=== PATIENT | male | born 1965 | race Caucasian/White ===

== ENCOUNTER 2020-09-06 14:31 | Emergency (ER) | payer BC, SELFPAY ==
[2020-09-06] VITALS (24 sets, daily range): BP systolic 101–142; BP diastolic 71–95; PULSE 60–97; RESP 13–31; TEMP 36.3; O2SAT 96–100
--- NOTE | ~2020-09-06 | XR_ITS ---
XR chest 2V DATE: 09/06/2020 17:30 INDICATION: Shortness of breath when walking. History of emphysema, asthma, bronchitis TECHNIQUE: PA and lateral views COMPARISON: 04/22/2014 2 view chest FINDINGS: The lungs are hyperinflated prominently, with flattening of the diaphragm, increased retros ternal airspace, consistent with COPD. No pulmonary infiltrate or consolidation, pleural effusion or pulmonary vascular congestion or pneumo thorax. Normal heart size. The central pulmonary arteries are relatively prominent and taper fairly rapidly, suggesting pulmonary hypertension. No hilar or mediastinal mass lesion or lymphadenopathy is detected. IMPRESSION: COPD, probable pulmonary hypertension Reviewed, dictated and finalized at location A. TANK CAR UNLOADER
--- NOTE | 2020-09-06 15:07 | ECG_ITS ---
Measurements Intervals [place] Rate: 71 P: 82 MO: 115 QRS: 88 QRSD: 91 T: 68 QT: 356 QTc: 387 Interpretive Statements SINUS RHYTHM WITH SINUS ARRHYTHMIA WITH SHORT MO INTERVAL POSSIBLE LEFT ATRIAL ENLARGEMENT BASELINE ARTIFACT- I, II, AVR, AVL, AVF, V1-V4 BORDERLINE ECG Electronically Signed On 09-06-2020 16:20:21 DATABASE MANAGEMENT SPECIALIST by Nicko Queen D.O.
[2020-09-06 15:37] LABS: Basophils Percent Auto 0.5 % (0.2-1.2); Eosinophils Absolute Auto 0.2 K/mm3 (0-0.3); Eosinophils Percent Auto 2.2 % (0-4.4); Hematocrit 44.8 % (42.0-52.0); Hemoglobin 15.2 g/dL (14.0-18.0); Immature Granulocyte Absolute 0.02 K/mm3 (0.00-0.031); Immature Granulocyte Percent A 0.3 % (0-0.5); Lymphocytes Absolute Auto 1.31 K/mm3 (0.9-3.2); Lymphocytes Percent Auto 16.8 % (18.3-44.2); Mean Corpuscular HGB Conc 33.9 g/dl (32-36); Mean Corpuscular Hemoglobin 32.6 pg (26-34); Mean Corpuscular Volume 96.1 fl (80-100); Mean Platelet Volume 9.4 fl (7.4-10.4); Monocytes Absolute Auto 0.7 K/mm3 (0.1-0.6); Monocytes Percent Auto 8.5 % (2.6-8.5); Neutrophils Absolute Auto 5.6 K/mm3 (1.3-6.7); Neutrophils Percent Auto 71.7 % (45.5-73.1); Platelet Count Result 210 k/mm3 (150-375); Red Blood Count 4.66 M/mm3 (4.6-6.20); Red Cell Distribution Width 12.2 % (11.5-14.5); White Blood Count 7.8 K/mm3 (4.5-10.0)
[2020-09-06 15:51] LABS: Anion Gap 5 mmol/L (8-16); Blood Urea Nitrogen 15 mg/dL (9-20); Calcium 9.3 mg/dL (8.4-10.2); Carbon Dioxide 30 mmol/L (22-30); Chloride 104 mmol/L (98-107); Estimated CRCL calculation 79 ml/min; Estimated Glomerular Filt Rate > 60; Glucose 92 mg/dL (75-110); Potassium 4.2 mmol/L (3.4-5.0); Sodium 139 mmol/L (137-145)
[2020-09-06 17:19] LABS: Alveolar/Arterial O2 Gradient 27.9 mmHg; Base Excess ABG -0.6 mEq/l (+/-2.0); Carboxyhemoglobin 4.2 % THb (0-2.0); Fractional Inspired Oxygen 21 %; HCO3 ABG 24.1 mEq/l (22.0-26.0); Methemoglobin ABG 0.3 %THb (0-1.5); Oxygen Saturation ABG 94.8 % (95.0-100.0); Oxyhemoglobin 90.6 % THb (90.0-100.0); PCO2 ABG 40.1 mmHg (35.0-45.0); PO2 ABG 73.8 mmHg (80.0-100.0); PO2 FiO2 Ratio Arterial Blood 3.51 %; Reduced Hemoglobin 4.9 %THb (0-5.0); Total Hemoglobin 15.7 g/dL (12.0-18.0); pH ABG 7.397 (7.350-7.450)
[2020-09-06 17:20] LABS: Device ROOM AIR; Modified Allen's Test Pass; Site Drawn RIGHT RADIAL
--- NOTE | 2020-09-06 17:23 | ED.SOB ---
HPI - SOB/Dyspnea General Chief Complaint: Shortness of Breath/Dyspnea Stated Complaint: low spo2 per MD, sob, pt has emphysema Time Seen by Provider: 09/06/20 16:52 Source: patient Mode of arrival: ambulatory Limitations: no limitations History of Present Illness HPI Narrative: Patient is a 55-year-old male complaining of shortness of breath worse with exertion. Patient also admits to cough, nonproductive but states that this is nothing new is from his emphysema. Patient has a history of COPD and emphysema and continues to smoke. Patient does not use home O2. Patient denies any fever, chills, abdominal pain, nausea vomiting diarrhea. MD elicited complaint: shortness of breath Related Data Home Medications Medication Instructions Recorded Confirmed albuterol sulfate INHALATION QID PRN 09/06/20 dextroamphetamine-amphetamine DAILY 09/06/20 [id number] INHALATION DAILY 09/06/20 [Trelegy Ellipta] Allergies Allergy/AdvReac Type Severity Reaction Status Date / Time No Known Allergies Allergy Verified 09/06/20 15:07 Review of Systems Review of Systems: All systems reviewed & are unremarkable except as noted in HPI and below Constitutional: Constitutional: Denies body ache(s), Denies chills, Denies excessive sweating, Denies fatigue, Denies fever(s), Denies headache(s), Denies lethargy, Denies malaise, Denies weakness and Denies weight loss Eyes: Eyes: Denies blurry vision, Denies change in vision and Denies loss of vision ENT: Denies dizziness, Denies ear discharge, Denies headache(s), Denies lip swelling, Denies epistaxis, Denies nasal congestion, Denies neck pain, Denies throat swelling and Denies tongue swelling Cardiovascular: Cardiovascular: Denies chest pain with activity, Denies diaphoresis, Denies rapid heart rate, Denies edema, Denies irregular heart rhythm, Denies lightheadedness, Denies palpitations, Denies dyspnea and Denies dyspnea on exertion Respiratory: Respiratory: Denies chest congestion, Denies cough, Denies hemoptysis, Denies dyspnea and Denies dyspnea on exertion Gastrointestinal: Gastrointestinal: Denies abdominal pain, Denies melena, Denies hematochezia, Denies diarrhea, Denies nausea, Denies vomiting and Denies hematemesis Musculoskeletal: Musculoskeletal: Denies abnormal gait, Denies deformity, Denies joint swelling, Denies limited range of motion, Denies neck pain and Denies numbness Neurologic: Denies Abnormal speech present, Denies abnormal gait, Denies confusion, Denies dizziness, Denies headache(s), Denies focal weakness, Denies loss of vision, Denies numbness, Denies Other visual disturbances, Denies Sensory deficit (Neuro) and Denies weakness Psychiatric: Psychiatric: Denies confusion, Denies depression, Denies auditory hallucinations, Denies homicidal ideation and Denies suicidal ideation Endocrine: Endocrine: Denies cold intolerance, Denies excessive sweating, Denies fatigue, Denies heat intolerance and Denies palpitations Hematologic/Lymphatic: Hematologic/Lymphatic: Denies easy bleeding and Denies easy bruising Allergic/Immunologic: Allergic/Immunologic: Denies lip swelling, Denies throat swelling and Denies tongue swelling PMFSH Social History Social History Gender identity (if verbalized by the patient): Male Exam Const: General: cooperative, healthy appearing, comfortable, well developed, alert and awake; No no acute distress (Mild distress) or confusion Orientation/consciousness: oriented to person, oriented to place, oriented to time, patient oriented x3 and No confusion Limitations: no limitations HENMT: Head: normal to inspection, normocephalic and atraumatic Ears: hearing grossly normal bilaterally, TM normal on the right and TM normal on the left General nose exam: Normal external nose present, Normal nares present and No nasal discharge present Face and sinus: normal facial exam Mouth: Yes Normal oral and palatal mucosa present, Yes lip normal,
[2020-09-06] MEDS: ALBUTEROL SULFATE NEB 2.5 MG/0.5 ML INH 5 MG INHALATION (17:31)
[2020-09-06] MEDS: IPRATROPIUM BR 0.02% INH SOLN 0.5 MG/2.5 ML VIAL INHALATION (17:31)
[2020-09-06] MEDS: methylPREDNISolone SOD SUCC 125 MG VIAL IV PUSH (17:38)
--- NOTE | 2020-09-06 19:19 | PC.NURSE ---
PT REPORT TO YOHANA CHRISTINE AT THIS TIME.
[2020-09-06 19:21] LABS: Troponin I < 0.012 ng/mL (0.000-0.034)
== END 2020-09-06 19:50 | disposition home or self-care (01) ==
PROVIDERS: Emergency Medicine; Emergency Provider Emergency Medicine
DX: J44.1 Chronic obstructive pulmonary disease with (acute) exacerbation (principal); F17.200 Nicotine dependence, unspecified, uncomplicated; R94.31 Abnormal electrocardiogram [ECG] [EKG]
CPT/HCPCS: 36415; 36600; 71046; 80048; 82375; 82805; 83050; 84484; 85025; 93005; 94640; 96374; 99284; J2930

== ENCOUNTER 2020-09-13 12:47 | Outpatient (CLI) | payer BC, SELFPAY ==
[2020-09-13 13:00] VITALS: PULSE 90; O2SAT 95
[2020-09-13 13:05] VITALS: PULSE 110; O2SAT 86
[2020-09-13 13:10] VITALS: PULSE 102; O2SAT 88
[2020-09-13 13:15] VITALS: O2SAT 90
[2020-09-13 13:30] VITALS: PULSE 92; O2SAT 94
--- NOTE | 2020-09-13 13:35 | HOMEO2EVAL ---
Home Oxygen Evaluation RC: Home Oxygen (O2) Evaluation Start: 09/13/20 13:29 Freq: Status: Active Protocol: RPE Activity Type Activity Date Activity User E-Sign Co-Sign Detail Recorded Client Recorded Date Recorded By Document 09/13/20 13:00 PRIYANKA [id number] 09/13/20 13:35 PRIYANKA Document 09/13/20 13:05 PRIYANKA [id number] 09/13/20 13:35 PRIYANKA Document 09/13/20 13:10 [facility] [id number] 09/13/20 13:35 [facility] Document 09/13/20 13:15 [facility] [id number] 09/13/20 13:35 [facility] Document 09/13/20 13:30 PRIYANKA [email or web address] 09/13/20 13:35 [facility] 09/13/20 09/13/20 09/13/20 13:00 13:05 13:10 Home O2 Evaluation Test Phase Resting Exercise Exercise Oxygen Delivery Room Air Room Air Nasal Cannula Oxygen Flow Rate (L/min) 1 Pulse Oximetry (90-100 %) 95 86 L 88 L Pulse Rate (60-100 beats/min) 90 110 H 102 H Activity Tolerance Excellent Ambulation Distance (feet) Treatment Charges O2 Evaluation 09/13/20 09/13/20 13:15 13:30 Home O2 Evaluation Test Phase Exercise Resting Oxygen Delivery Nasal Cannula Room Air Oxygen Flow Rate (L/min) 2 Pulse Oximetry (90-100 %) 90 94 Pulse Rate (60-100 beats/min) 92 Activity Tolerance Ambulation Distance (feet) 1,000 Treatment Charges
--- NOTE | 2020-09-13 13:36 | HOMEO2EVAL ---
Home Oxygen Evaluation RC: Home Oxygen (O2) Evaluation Start: 09/13/20 13:29 Freq: Status: Active Protocol: RPE Activity Type Activity Date Activity User E-Sign Co-Sign Detail Recorded Client Recorded Date Recorded By Document 09/13/20 13:00 PRIYANKA [email or web address] 09/13/20 13:35 PRIYANKA Document 09/13/20 13:05 PRIYANKA [email or web address] 09/13/20 13:35 PRIYANKA Document 09/13/20 13:10 [facility] [email or web address] 09/13/20 13:35 [facility] Document 09/13/20 13:15 [facility] [email or web address] 09/13/20 13:35 [facility] Document 09/13/20 13:30 PRIYANKA [email or web address] 09/13/20 13:35 [facility] 09/13/20 09/13/20 09/13/20 13:00 13:05 13:10 Home O2 Evaluation Test Phase Resting Exercise Exercise Oxygen Delivery Room Air Room Air Nasal Cannula Oxygen Flow Rate (L/min) 1 Pulse Oximetry (90-100 %) 95 86 L 88 L Pulse Rate (60-100 beats/min) 90 110 H 102 H Activity Tolerance Excellent Ambulation Distance (feet) Treatment Charges O2 Evaluation 09/13/20 09/13/20 13:15 13:30 Home O2 Evaluation Test Phase Exercise Resting Oxygen Delivery Nasal Cannula Room Air Oxygen Flow Rate (L/min) 2 Pulse Oximetry (90-100 %) 90 94 Pulse Rate (60-100 beats/min) 92 Activity Tolerance Ambulation Distance (feet) 1,000 Treatment Charges
== END 2020-09-13 12:48 | disposition home or self-care (01) ==
PROVIDERS: Visit Provider Internal Medicine Pulmonary Disease
DX: J44.9 Chronic obstructive pulmonary disease, unspecified (principal)
CPT/HCPCS: 94618

== ENCOUNTER 2020-11-23 07:37 | Outpatient (CLI) | payer SELFPAY ==
[2020-11-23 08:07] LABS: Alveolar/Arterial O2 Gradient 12.6 mmHg; Base Excess ABG 2.3 mEq/l (+/-2.0); Carboxyhemoglobin 0.3 % THb (0-2.0); Fractional Inspired Oxygen 21 %; HCO3 ABG 28.3 mEq/l (22.0-26.0); Methemoglobin ABG 0.4 %THb (0-1.5); Oxygen Content ABG 21.6 %vol (16.0-22.0); Oxygen Saturation ABG 95.5 % (95.0-100.0); Oxyhemoglobin 94.7 % THb (90.0-100.0); PCO2 ABG 48.3 mmHg (35.0-45.0); PO2 ABG 79.3 mmHg (80.0-100.0); PO2 FiO2 Ratio Arterial Blood 3.78 %; Reduced Hemoglobin 4.6 %THb (0-5.0); Total Hemoglobin 16.2 g/dL (12.0-18.0); pH ABG 7.385 (7.350-7.450)
[2020-11-23 08:09] LABS: Device ROOM AIR; Modified Allen's Test Pass; Site Drawn RIGHT BRACHIAL
--- NOTE | 2020-11-25 13:37 | WPDPFTINT ---
PFT Interpretation PFT Interpretation: This PFT met all criteria for ATS standards and reproducibility FEV/FVC post bronchodilator 25% FEV1 31% or 0.95 liters FVC 92% or 3.79 liters There was significant improvement in FVC by 330 ml and 10% TLC 153% or 8.81 liters RV 244% RV/TLC 56% DLCO 48% when adjusted for alveolar volume but not adjusted for hemoglobin Flow volume loops showed Impression: Severe airflow obstruction with good response to bronchodilator, hyperinflation, air trapping and moderately reduced diffusion capacity. This pattern is suggestive of COPD with possible Asthma component. When compared to PFT in 2016 there has been a significant decline in FEV1 from 63% of predicted. Clinical correlation is advised.
== END 2020-11-23 07:38 | disposition home or self-care (01) ==
LOC: ANHPFT 07:41
PROVIDERS: PCP Family Medicine; Visit Provider Nurse Practitioner
DX: J44.9 Chronic obstructive pulmonary disease, unspecified (principal); R94.2 Abnormal results of pulmonary function studies
CPT/HCPCS: 36600; 82375; 82805; 83050; 94060; 94726; 94729

== ENCOUNTER 2020-12-14 09:08 | Outpatient (CLI) | payer SELFPAY ==
--- NOTE | ~2020-12-14 | PE_ITS ---
EXAMINATION: PET skull to mid thigh DATE: 12/14/2020 11:19 INDICATION: Multiple pulmonary nodules. TECHNIQUE: Blood glucose level was 89 mg/dL. 10.379 mCi of 18-fluorodeoxyglucose (18-FDG) was adminis tered i.v. Low dose computed tomography (CT) images were acquired from the base of the brain to the p roximal thighs for attenuation correction and anatomic localization. Positron emission tomography (PE T) images were acquired in the same distribution beginning 86 minutes after injection. Images includi ng fused PET/CT images were reconstructed in axial, coronal, and sagittal planes. Automated exposure control technique was employed. The dose-length product was 228.32mGy-cm. COMPARISON: CT abdomen and pelvis dated 12/15/2015 FINDINGS: Head/neck: There is symmetric increased activity in the oral cavity, palatine tonsils, parotid glands, submandi bular glands, laryngeal muscles and ocular muscles without CT correlate, likely physiologic. There is increased uptake associated with a periapical lucency likely related to dental disease involving the posterior most right mandibular molar. No pathologically enlarged cervical lymphadenopathy or suspic ious foci of increased FDG uptake in the visualized head or neck. Chest: Severe emphysema. There are at least 17 FDG avid pulmonary nodules scattered throughout both lungs th e largest and with most intense FDG uptake measures 1.6 cm in the right lower lobe with maximal SUV o f 6.2. No pleural effusion. Heart size is normal. No pericardial effusion. No pathologically enlarged or FDG avid thoracic lymphadenopathy. Abdomen/pelvis/proximal thighs: Physiologic renal accumulation and excretion of FDG activity in the kidneys, bladder and along portio ns of ureters. Approximately 1.5 cm hypodense cyst at the mid left kidney with dependently layering m ilk of calcium. Normal degree and heterogenous pattern of increased uptake throughout the liver witho ut radiologic correlate or dominant FDG avid lesion. The gallbladder, pancreas, spleen and bilateral adrenal glands are normal. Mild uptake scattered throughout the bowels without radiologic correlate, also likely physiologic. No other abnormal foci of increased FDG uptake or pathologically enlarged ly mphadenopathy in the abdomen, pelvis or proximal thighs. Musculoskeletal: Mild likely synovial uptake at the left acromioclavicular joint without radiologic correlate. There i s also mild uptake along the inferior right femoral neck is without radiologic correlate. No interval change since 2015 in a benign lytic lesion with well-defined sclerotic margins and without correspon ding FDG uptake at the right innominate bone along side the sacroiliac joints. No suspicious lytic, b lastic or FDG avid bone lesions. IMPRESSION: 1. Multiple nonspecific FDG avid pulmonary nodules the largest measuring 1.6 cm in the right lower lo be with maximal SUV of 6.2. Differential would include infection either primary pulmonary or septic e mboli in the proper clinical setting or metastatic disease of unknown primary. Provided history was m ultiple pulmonary nodules suggesting prior outside imaging is available would recommend comparison as an interval change might slightly differential more towards infection or malignancy. If the patient is a biopsy candidate not requiring supplemental oxygen at baseline and if after comparison with outs keke imaging there is continued high suspicion for metastatic disease would recommend CT-guided percut aneous biopsy. Reviewed, dictated and finalized at location A. R PUMP OPERATOR IMPRESSION: 1. Multiple nonspecific FDG avid pulmonary nodules the largest measuring 1.6 cm in the right lower lobe with maximal SUV of 6.2. Differential would include in fection either primary pulmonary
[2020-12-14 09:37] LABS: Glucose Point of Care 89 (65-105)
== END 2020-12-14 09:09 | disposition home or self-care (01) ==
PROVIDERS: PCP Family Medicine; Visit Provider Nurse Practitioner
DX: E88.01 Alpha-1-antitrypsin deficiency (principal); R91.8 Other nonspecific abnormal finding of lung field
CPT/HCPCS: 36415; 78815; 82104; 82948; A9552

== ENCOUNTER 2021-02-05 04:53 | Inpatient (IN) | payer MEDICAID, SELFPAY ==
[2021-02-05] VITALS (28 sets, daily range): BP systolic 94–135; BP diastolic 67–88; PULSE 54–119; RESP 16–24; TEMP 36.4–37.7; O2SAT 95–100; BMI 17.1
--- NOTE | ~2021-02-05 | XR_ITS ---
EXAMINATION: XR chest 1V portable EXAM DATE: 02/05/2021 05:54 INDICATION: Cough, chest pain left side x 1 day, hx emphysema TECHNIQUE: Portable AP frontal chest x-ray was obtained. Comparison is made to prior examination from 09/06/2020. FINDINGS: Patient has developed ill-defined left upper lobe airspace disease most likely bacterial pn eumonia. Other etiologies not excludable. The lungs are hyperinflated which can be seen with chronic obstructive pulmonary disease (a clinical diagnosis of functional impairment), but is not diagnostic of it. There is narrow cardiac silhouette from the hyperinflation. There are no osseous abnormalities identified. IMPRESSION: 1. Patchy left upper lobe pneumonia. 2. Chronic hyperinflation unchanged. Reviewed, dictated and finalized at location A.
--- NOTE | ~2021-02-05 | XR_ITS ---
EXAMINATION: XR chest 1V portable EXAM DATE: 02/06/2021 05:59 INDICATION: Pneumonia. TECHNIQUE: Portable AP frontal chest x-ray was obtained. Comparison is made to prior examination from 02/05/2021. FINDINGS: Patient has developed ill-defined left upper lobe airspace disease most likely pneumonia. T he lungs are hyperinflated which can be seen with chronic obstructive pulmonary disease (a clinical d iagnosis of functional impairment), but is not diagnostic of it. There is narrow cardiac silhouette f rom the hyperinflation. No pneumothorax or pleural effusion. There are no osseous abnormalities ident ified. IMPRESSION: 1. Patchy left upper lobe pneumonia unchanged. 2. Chronic hyperinflation. Reviewed, dictated and finalized at location A.
--- NOTE | ~2021-02-05 | CT_ITS ---
EXAMINATION: CTA chest PE protocol DATE: 02/07/2021 16:18 INDICATION: Left chest pain. Hypoxia. TECHNIQUE: Computed tomography angiography (CTA) of the chest was performed with 100 mL Omnipaque-350 intravenous contrast timed to evaluate the pulmonary arteries. Coronal maximum intensity projection 3D-reconstructions were created by the technologist. Automated exposure control and iterative reconst ruction technique were employed. The dose-length product was 200.35 mGy-cm. COMPARISON: PET CT 12/14/2020 FINDINGS: There is severe emphysema. There are airspace and groundglass opacities with air bronchogra ms in left upper lobe, consistent with pneumonia. There are approximately 10 scattered pulmonary nodu les in the lungs measuring up to 9 mm in right lower lobe. There is a trace left pleural effusion. Th e heart size is normal. There is a small pericardial effusion. There is no pulmonary embolus. There i s a 15 mm cyst in left kidney. There is mild thoracic spondylosis. IMPRESSION: 1. No pulmonary embolus. 2. Left upper lobe pneumonia. 3. Scattered pulmonary nodules measuring up to 9 mm, some of which are stable and some which are impr isael from 12/14/2020, likely infection. Noncontrast chest CT is recommended in 6 months to exclude mal ignancy. 4. Severe emphysema. Reviewed, dictated and finalized at location A. IMPRESSION: 1. No pulmonary embolus. 2. Left upper lobe pneumonia. 3. Scattered pulmonary nodules measuring up to 9 mm, some of which are stable a nd some which are improved from 12/14/2020, likely infection. Noncontrast chest CT is recommended in 6 months to exclude malignancy. 4. Severe emphysema.
--- NOTE | 2021-02-05 04:58 | ECG_ITS ---
Measurements Intervals [place] Rate: 90 P: 89 IN: 94 QRS: 89 QRSD: 85 T: 68 QT: 293 QTc: 360 Interpretive Statements SINUS RHYTHM WITH SINUS ARRHYTHMIA WITH SHORT IN INTERVAL POSSIBLE LEFT ATRIAL ENLARGEMENT DELAYED PRECORDIAL R/S TRANSITION BASELINE ARTIFACT- I, II, III, AVR, AVL, AVF, V1-V6 BORDERLINE ECG Electronically Signed On 02-05-2021 8:07:35 CDT by Nicko Queen D.O.
--- NOTE | 2021-02-05 05:04 | ED.SOB ---
HPI - SOB/Dyspnea General Chief Complaint: Shortness of Breath/Dyspnea Stated Complaint: sob-chest pain Time Seen by Provider: 02/05/21 04:58 History of Present Illness HPI Narrative: 55 yo male w/ COPD presents to the ED for cough, SOB, and chest pain. He has had an increased cough rpoductive of white sputum for the past few days. He also has sharp left sided chest pain that is worse with coughing and breathing. He is on 3 liters of O2 at home with activity and at bed time. He is currently on dexamethasone.he recently quit smoking. Related Data Home Medications Medication Instructions Recorded Confirmed albuterol sulfate INHALATION QID PRN 09/06/20 dextroamphetamine-amphetamine DAILY 09/06/20 [id number] INHALATION DAILY 09/06/20 [Trelegy Ellipta] Allergies Allergy/AdvReac Type Severity Reaction Status Date / Time No Known Allergies Allergy Verified 02/05/21 05:01 Review of Systems Review of Systems: All systems reviewed & are unremarkable except as noted in HPI and below Constitutional: Constitutional: Denies fever(s) ENT: Reports system reviewed and no additional complaints, except as documented Cardiovascular: Cardiovascular: Reports chest pain Respiratory: Respiratory: Reports chest congestion, Reports cough and Reports dyspnea Gastrointestinal: Gastrointestinal: Reports no additional gastrointestinal complaints Musculoskeletal: Musculoskeletal: Reports no additional musculoskeletal complaints Neurologic: Denies dizziness and Denies weakness PMFSH Family History Family History (Updated 12/10/15 @ 10:51 by DOCTOR UNKNOWN) Sibling Family history of mental disorder Depression Family history of chronic obstructive pulmonary disease Mother Hypertension Cerebrovascular accident Family history of irritable bowel syndrome Father Acute myocardial infarction Other Family history of heart disease in male family member before age 55 Social History Social History Smoking status: Current every day smoker Second hand tobacco smoke exposure: No Alcohol intake: current Gender identity (if verbalized by the patient): Male Exam Const: General: no acute distress, alert and ill appearing Nutritional Appearance: well nourished Orientation/consciousness: patient oriented x3 HENMT: Head: normal to inspection Neck: Neck: normal visual inspection Chest: Chest palpation & inspection: tenderness pectoral muscle on the left Resp: Effort & Inspection: tachypneic Auscultation: crackles Cardio: Rate: tachycardic Rhythm: regular rhythm GI: GI Palp: Yes Soft to palpation and No Tenderness to palpation present (GI) Neuro: General: patient oriented x3, moves all extremities and CN's II-XI intact bilaterally Speech: normal speech Extrem: General: normal to inspection and no edema Course Vital Signs Vital signs: Vital Signs Temperature 37.7 C H 02/05/21 04:53 Pulse Rate 99 02/05/21 04:53 Respiratory Rate 20 02/05/21 04:53 Blood Pressure 135/88 02/05/21 04:53 Pulse Oximetry 99 02/05/21 04:53 Temperature 37.7 C H 02/05/21 04:53 Pulse Rate 109 H 02/05/21 06:09 Respiratory Rate 18 02/05/21 06:09 Blood Pressure 112/73 02/05/21 06:09 Pulse Oximetry 99 02/05/21 06:09 MDM - SOB/Dyspnea Differential Diagnosis Differential diagnosis: Likely acute exacerbation of chronic obstructive airways disease, congestive heart failure and community acquired pneumonia Medical Records Attestation: I reviewed the patient's medical records. Lab Data Attestation: I reviewed the patient's lab results. Result diagrams: 02/05/21 05:11 02/05/21 05:11 Labs: Lab Results 02/05/21 02/05/21 Range/Units 05:11 05:11 WBC 25.9 H (4.5-10.0) K/mm3 RBC 4.84 (4.6-6.20) M/mm3 Hgb 15.4 (14.0-18.0) g/dL Hct 46.1 (42.0-52.0) % MCV 95.2 (80-100) fl MCH 31.8 (26-34) pg MCHC 33.4 (32-36) g/dl RDW
[2021-02-05] MEDS: KETOROLAC 30 MG/ML VIAL (*BKC) IV PUSH (05:07)
[2021-02-05 05:27] LABS: Basophils Absolute Auto 0.1 K/mm3 (0.0-0.1); Basophils Percent Auto 0.2 % (0.2-1.2); Hematocrit 46.1 % (42.0-52.0); Hemoglobin 15.4 g/dL (14.0-18.0); Immature Granulocyte Absolute 0.27 K/mm3 (0.00-0.031); Lymphocytes Absolute Auto 1.16 K/mm3 (0.9-3.2); Lymphocytes Percent Auto 4.5 % (18.3-44.2); Mean Corpuscular HGB Conc 33.4 g/dl (32-36); Mean Corpuscular Hemoglobin 31.8 pg (26-34); Mean Corpuscular Volume 95.2 fl (80-100); Mean Platelet Volume 8.7 fl (7.4-10.4); Monocytes Absolute Auto 1.6 K/mm3 (0.1-0.6); Monocytes Percent Auto 6.1 % (2.6-8.5); Neutrophils Absolute Auto 22.9 K/mm3 (1.3-6.7); Neutrophils Percent Auto 88.2 % (45.5-73.1); Platelet Count Result 186 k/mm3 (150-375); Red Blood Count 4.84 M/mm3 (4.6-6.20); Red Cell Distribution Width 12.3 % (11.5-14.5); White Blood Count 25.9 K/mm3 (4.5-10.0)
[2021-02-05 05:28] LABS: Base Excess ABG 1.4 mEq/l (+/-2.0); Fractional Inspired Oxygen 32 %; HCO3 ABG 25.1 mEq/l (22.0-26.0); Oxygen Saturation ABG 97.3 % (95.0-100.0); Oxyhemoglobin 95.5 % THb (90.0-100.0); PCO2 ABG 37.1 mmHg (35.0-45.0); PO2 ABG 90.8 mmHg (80.0-100.0); PO2 FiO2 Ratio Arterial Blood 2.84 %; Total Hemoglobin 15.6 g/dL (12.0-18.0); pH ABG 7.449 (7.350-7.450)
[2021-02-05 05:29] LABS: Device NASAL CANNULA; Modified Allen's Test Pass; Site Drawn RIGHT RADIAL
[2021-02-05] MEDS: IPRATROPIUM BR 0.02% INH SOLN 0.5 MG/2.5 ML VIAL INHALATION ×4 (05:31→20:34)
[2021-02-05] MEDS: ALBUTEROL SULFATE NEB 2.5 MG/0.5 ML INH 5 MG INHALATION ×4 (05:31→20:34)
[2021-02-05 05:41] LABS: Anion Gap 2 mmol/L (8-16); Blood Urea Nitrogen 20 mg/dL (9-20); Calcium 8.8 mg/dL (8.4-10.2); Carbon Dioxide 33 mmol/L (22-30); Chloride 101 mmol/L (98-107); Estimated CRCL calculation 117 ml/min; Estimated Glomerular Filt Rate > 60; Glucose 123 mg/dL (75-110); Potassium 4.4 mmol/L (3.4-5.0); Sodium 136 mmol/L (137-145)
[2021-02-05 05:53] LABS: Troponin I < 0.012 ng/mL (0.000-0.034)
--- NOTE | 2021-02-05 06:20 | PC.NURSE ---
1st set of bc sent to lab by truck service technician
--- NOTE | 2021-02-05 06:29 | PC.NURSE ---
2nd set of blood cultures drawn by automotive paint technician and sent to lab as ordered.
--- NOTE | 2021-02-05 10:40 | PC.NURSE ---
This patient, Manny Munoz, was admitted to [facility] Surg Room 300-01. Patient/family oriented to hospital policies and general routines including ID bracelet, bed and alarms, visiting hours, pain management, procedures, bathroom and other care routines, personal items, smoking policy, room service/diet, and visiting hours.Report received from Summer RN. Information on how to activate the Rapid Response Team has been discussed. Patient/Family are encouraged to report perceived risks to care and to ask questions if they do not understand what they are told or what they should do.
[2021-02-05] MEDS: methylPREDNISolone SOD SUCC 125 MG VIAL 60 MG IV PUSH ×2 (12:03→22:10)
--- NOTE | 2021-02-05 13:39 | PM.IMHP ---
H&P: HPI History of Present Illness Date/Time: 02/05/21 13:39 Chief Complaint: Chest pain and SOB Narrative: 55yo male with COPD and chronic respiratory failure here for SOB and CP. Patient has chronic respiratory failure and wears 3 L of oxygen at night and 3-4 L with activity. Does not wear oxygen at rest. He has a chronic cough. He has been doing well up until the past few days when he had wheezing. He presented urgent care center was treated with nebulizer treatments. He did not have chest pain at that time. He has not been on antibiotics recently. He has been followed by Oncology for multiple pulmonary nodules with the largest being 1.6 cm in the right lower lobe. The patient lost about 20 lb 2 years ago but his weight is been stable over the past 2 years. The oncologist start him on Decadron for the poor appetite. Patient is currently day 13 of Decadron he states. Patient has been outside working on a deck recently. In the green energy marketing analyst hours of admission patient was awoken with left-sided sharp chest pain. He woke him up from sleep and occurred with every breath. Cough was more significant but nonproductive. Chest pain was worse with activity as well no lower extremity edema. No calf pain. No recent long trips. No fever or chills. He had his 2nd COVID vaccine on January 29. No dysgeusia or anosmia. No nausea or vomiting. No urinary symptoms. Because of these symptoms patient contacted EMS was brought to the emergency room for evaluation. In the ED, temperature was 99.9?. He was hemodynamically stable. ABG was normal on 3 L. troponin was negative. EKG is poor quality but showed normal sinus rhythm. On nebulizer treatments, Solu-Medrol and IV antibiotics. He was admitted for further care. Since admission he states that his chest pain has almost completely resolved. He does have the pain he takes a ?really deep breath . Review of Systems Review of Systems: All systems reviewed & are unremarkable except as noted in HPI and below PMFSH Past Medical History Medical History (Updated 02/06/21 @ 18:47 by Akash Petersen MD) ADD (attention deficit disorder) Asthma Chronic respiratory failure COPD (chronic obstructive pulmonary disease) Depression with anxiety Surgical History Surgical History (Updated 02/05/21 @ 13:49 by Akash Petersen MD) Hx of tonsillectomy Family History Family History (Updated 02/05/21 @ 10:54 by Jeannie Paniagua RN) Sibling Depression Family history of mental disorder Family history of chronic obstructive pulmonary disease Family history of heart disease in male family member before age 55 Mother Family history of irritable bowel syndrome Hypertension Cerebrovascular accident Family history of heart disease in male family member before age 55 Father Acute myocardial infarction Family history of heart disease in male family member before age 55 Social History Social History (Updated 02/05/21 @ 13:51 by Akash Petersen MD) Social History: Tobacco 1ppd x 35 yrs. Lives with son. Denies alcohol or drug use. He is a full code. He nominated his son to be the individual would make medical decisions for him if he is not able. Smoking packs per day: 1 Smoking cigarettes per day: 20.0 Years smoked: 35 Smoking pack-years: 35.00 Smoking status: Former smoker Tobacco type: cigarettes Second hand tobacco smoke exposure: No Smoking end date: 02/04/21 Alcohol intake: never Substance use: never Gender identity (if verbalized by the patient): Male Spiritual care concerns: No Meds Home Medications and Allergies Home Medications Medication Instructions Recorded Confirmed Type albuterol sulfate 2 puff INHALATION QID PRN #18 gm 09/06/20 02/05/21 Rx dexamethasone 4 mg PO DAILY 02/05/21 02/05/21 History tiotropium bromide [Spiriva with 1 cap INHALATION DAILY 02/05/21 02/05/21 History HandiHaler] varenicline [Chantix Continuing 1 mg PO
[2021-02-05] MEDS: ACETAMINOPHEN 325 MG TABLET 650 MG PO (15:04)
[2021-02-05] MEDS: VARENICLINE 1 MG TABLET PO (16:59)
[2021-02-05] MEDS: FAMOTIDINE 20 MG TABLET PO (22:11)
--- NOTE | 2021-02-05 22:22 | PC.NURSE ---
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 As a forewarning, try to call his name to wake him and then if that does not wake him try to pat the bed or touch his leg as opposed to his arm, and avoid standing near his arms until he wakes up fully. -RACHEL MULLER
[2021-02-06] VITALS (18 sets, daily range): BP systolic 99–131; BP diastolic 52–70; PULSE 65–111; RESP 18–20; TEMP 36.3–36.5; O2SAT 94–98
[2021-02-06] MEDS: ALBUTEROL SULFATE NEB 2.5 MG/0.5 ML INH 5 MG INHALATION ×4 (02:04→20:23)
[2021-02-06] MEDS: IPRATROPIUM BR 0.02% INH SOLN 0.5 MG/2.5 ML VIAL INHALATION ×4 (02:04→20:23)
[2021-02-06] MEDS: methylPREDNISolone SOD SUCC 125 MG VIAL 60 MG IV PUSH (05:09)
[2021-02-06 05:47] LABS: Basophils Percent Auto 0.2 % (0.2-1.2); Hematocrit 41.7 % (42.0-52.0); Hemoglobin 13.8 g/dL (14.0-18.0); Immature Granulocyte Absolute 0.43 K/mm3 (0.00-0.031); Immature Granulocyte Percent A 1.8 % (0-0.5); Lymphocytes Absolute Auto 0.26 K/mm3 (0.9-3.2); Lymphocytes Percent Auto 1.1 % (18.3-44.2); Mean Corpuscular HGB Conc 33.1 g/dl (32-36); Mean Corpuscular Hemoglobin 32.2 pg (26-34); Mean Corpuscular Volume 97.2 fl (80-100); Monocytes Absolute Auto 0.7 K/mm3 (0.1-0.6); Neutrophils Absolute Auto 23.1 K/mm3 (1.3-6.7); Neutrophils Percent Auto 93.9 % (45.5-73.1); Platelet Count Result 155 k/mm3 (150-375); Red Blood Count 4.29 M/mm3 (4.6-6.20); Red Cell Distribution Width 12.3 % (11.5-14.5); White Blood Count 24.6 K/mm3 (4.5-10.0)
[2021-02-06 05:57] LABS: Alanine Aminotransferase 41 U/L (4-50); Albumin Level 3.3 g/dL (3.5-5.1); Alkaline Phosphatase 66 U/L (38-126); Anion Gap 0 mmol/L (8-16); Aspartate Amino Transferase 28 U/L (17-59); Bilirubin,Total 0.9 mg/dL (0.2-1.3); Blood Urea Nitrogen 20 mg/dL (9-20); Calcium 8.7 mg/dL (8.4-10.2); Carbon Dioxide 35 mmol/L (22-30); Chloride 100 mmol/L (98-107); Estimated CRCL calculation 80 ml/min; Estimated Glomerular Filt Rate > 60; Glucose 179 mg/dL (75-110); Potassium 4.8 mmol/L (3.4-5.0); Sodium 135 mmol/L (137-145)
[2021-02-06] MEDS: FAMOTIDINE 20 MG TABLET PO ×2 (08:17→21:44)
[2021-02-06] MEDS: VARENICLINE 1 MG TABLET PO ×2 (08:17→17:21)
[2021-02-06] MEDS: predniSONE 20 MG TABLET 40 MG PO (09:41)
[2021-02-06] MEDS: ENOXAPARIN 40 MG/0.4 ML SYRINGE SUB-Q (14:06)
--- NOTE | 2021-02-06 15:39 | PM.IMPN ---
Progress Note: A&P Assessment and Plan (1) Chest pain: Code(s): R07.9 - Chest pain, unspecified Status: Acute Assessment and Plan: Patient with acute onset left-sided chest pain that woke him from sleep. Concerning for PE but chest x-ray more consistent with pneumonia. This is supported with the elevated white count and low-grade temperature on admission. Elevated white count could be from the Decadron although he has been on this for almost 2 weeks now. Clinically better with appropriate treatment for pneumonia. Chest pain not felt to be cardiac related and has now resolved. Will continue monitor for now. (2) Community acquired pneumonia: Code(s): J18.9 - Pneumonia, unspecified organism Status: Acute Assessment and Plan: Chest x-ray reviewed by myself showing patchy left upper lobe airspace disease. Most likely pneumonia. Not wedge-shaped to suggest PE although this is still in the differential. Repeat chest x-ray showing no change. Blood and sputum cultures no growth. Will continue the Rocephin and azithromycin. Continue nebulizer treatments. Consider CTA if his symptoms change or has other concerning findings. (3) COPD (chronic obstructive pulmonary disease): Code(s): J44.9 - Chronic obstructive pulmonary disease, unspecified Status: Acute Assessment and Plan: No wheezing appreciated on exam today. Concern for COPD exacerbation so Solu-Medrol was started. Not on inhaled steroids anymore for unclear reasons. His Trelegy Ellipta was changed to Spiriva 2 days prior to admission the he states related to insurance reasons. Will add Symbicort today. Change to Prednisone for quick course. Will continue nebulizer treatments. (4) Leukocytosis: Code(s): D72.829 - Elevated white blood cell count, unspecified Status: Acute Assessment and Plan: WBC 26K on admission with left shift. Suspect related to the steroids (on decadron on admission) and PNA. Repeat about the same but he is on Solu-Medrol. Suspec this will trend down but will follow closely. (5) Chronic respiratory failure: Code(s): J96.10 - Chronic respiratory failure, unspecified whether with hypoxia or hypercapnia Status: Acute Assessment and Plan: Patient chronic respiratory failure with 3 L at night and 3-4 L with activity. He states he does not require oxygen at rest and does have a pulse oximeter at home. Patient currently at 2.5L nasal cannula at rest and RN instructed to wean O2 as patient tolerates. (6) Tobacco abuse: Code(s): Z72.0 - Tobacco use Status: Acute Assessment and Plan: Patient continues to smoke but quit the day before admission. His Chantix was resumed. He has been educated about the benefits of smoking cessation. He was also educated extensively about the risks of smoking around oxygen. (7) DVT prophylaxis: Code(s): Z29.9 - Encounter for prophylactic measures, unspecified Status: Acute Assessment and Plan: Lovenox Subjective Date/time seen: 02/06/21 15:39 Interval history: 55yo male with ch respiratory failure and COPD here for SOB and found to have PNA. Patient feels better today. No further chest pain. No pleuritic chest pain. Still has a cough but this is improved. Cough is essentially nonproductive. No wheezing. Still requiring oxygen while awake. He normally wears 3 L at sleep and with activity but not at rest. Exam Narrative: Exam Narrative: AF 97.6 131/70 74 20 95% 2.5L Gen - NARD Chest -distant but clear breath sounds bilaterally. Normal respiratory rate CV -regular rate and rhythm. S1-S2 Abd -soft. Nontender. Positive bowel sounds. Ext - no pedal edema Psych - normal mood and affect. Patient is pleasant and cooperative. Skin - warm and dry. Objective Data Vital Signs Vital Signs: Vital Signs - 24 hr 02/05/21 16:00 02/05/21 20:00 02/05/21 20:34
[2021-02-07] VITALS (17 sets, daily range): BP systolic 125–135; BP diastolic 74–85; PULSE 82–111; RESP 18; TEMP 36.3–37.7; O2SAT 94–99
[2021-02-07] MEDS: IPRATROPIUM BR 0.02% INH SOLN 0.5 MG/2.5 ML VIAL INHALATION ×4 (02:32→22:29)
[2021-02-07] MEDS: ALBUTEROL SULFATE NEB 2.5 MG/0.5 ML INH 5 MG INHALATION ×4 (02:32→22:29)
[2021-02-07] MEDS: FLUTICASONE PROPIONATE 0.05% NA SPR 16 GM BTL (*BKC) 1 SPRAY NASAL (03:50)
[2021-02-07 06:03] LABS: Basophils Percent Auto 0.2 % (0.2-1.2); Hematocrit 39.4 % (42.0-52.0); Hemoglobin 13.2 g/dL (14.0-18.0); Immature Granulocyte Percent A 1.3 % (0-0.5); Lymphocytes Absolute Auto 0.71 K/mm3 (0.9-3.2); Mean Corpuscular HGB Conc 33.5 g/dl (32-36); Mean Corpuscular Volume 95.6 fl (80-100); Mean Platelet Volume 9.3 fl (7.4-10.4); Monocytes Absolute Auto 1.7 K/mm3 (0.1-0.6); Neutrophils Absolute Auto 21.2 K/mm3 (1.3-6.7); Neutrophils Percent Auto 88.5 % (45.5-73.1); Platelet Count Result 183 k/mm3 (150-375); Red Blood Count 4.12 M/mm3 (4.6-6.20); Red Cell Distribution Width 12.6 % (11.5-14.5)
[2021-02-07 06:37] LABS: CRP 15.6 mg/dL (<1.0)
[2021-02-07] MEDS: predniSONE 20 MG TABLET 40 MG PO (09:08)
[2021-02-07] MEDS: VARENICLINE 1 MG TABLET PO ×2 (09:08→18:34)
[2021-02-07] MEDS: FAMOTIDINE 20 MG TABLET PO ×2 (09:08→20:30)
[2021-02-07] MEDS: ENOXAPARIN 40 MG/0.4 ML SYRINGE SUB-Q (09:09)
[2021-02-07] MEDS: ACETAMINOPHEN 325 MG TABLET 650 MG PO (15:16)
--- NOTE | 2021-02-07 15:29 | PM.IMPN ---
Progress Note: A&P Assessment and Plan (1) Chest pain: Code(s): R07.9 - Chest pain, unspecified Status: Acute Assessment and Plan: Patient presents with acute onset left-sided chest pain that woke him from sleep. Concerning for PE but chest x-ray more consistent with pneumonia. This is supported with the elevated white count and low-grade temperature on admission. Elevated white count could be from the Decadron although he has been on this for almost 2 weeks now. About the same today. WBC still elevated. Chest pain not felt to be cardiac related and has all but resolved. Will continue monitor for now. CTA showing no PE or cavitary lesions. Continue current abx. (2) Community acquired pneumonia: Code(s): J18.9 - Pneumonia, unspecified organism Status: Acute Assessment and Plan: Chest x-ray reviewed by myself showing patchy left upper lobe airspace disease. Most likely pneumonia. Not wedge-shaped to suggest PE although this is still in the differential. Repeat chest x-ray showed no change. Blood and sputum cultures no growth. Continue nebulizer treatments. Check CT chest. Change to Cefepime and add Vanco to broaden coverage. (3) COPD (chronic obstructive pulmonary disease): Code(s): J44.9 - Chronic obstructive pulmonary disease, unspecified Status: Acute Assessment and Plan: No wheezing appreciated on exam today. Concern for COPD exacerbation so Solu-Medrol was started. Not on inhaled steroids anymore for unclear reasons. His Trelegy Ellipta was changed to Spiriva 2 days prior to admission the he states related to insurance reasons. Symbicort was added. Changed to Prednisone and will taper - has been on decadron for 2 weeks so will need to taper slowly. Will continue nebulizer treatments. (4) Leukocytosis: Code(s): D72.829 - Elevated white blood cell count, unspecified Status: Acute Assessment and Plan: WBC 26K on admission with left shift. Suspect related to the steroids (on decadron on admission) and PNA. Repeat WBC slowly improving down to 24K. Suspect this will trend down but will follow closely. Will check CT scan. As above (5) Chronic respiratory failure: Code(s): J96.10 - Chronic respiratory failure, unspecified whether with hypoxia or hypercapnia Status: Acute Assessment and Plan: Patient has chronic respiratory failure requiring 3 L at night and 3-4 L with activity. He states he does not require oxygen at rest and does have a pulse oximeter at home. Patient did get down to 1L nasal cannula at rest. Continue to wean O2 as patient tolerates. (6) Tobacco abuse: Code(s): Z72.0 - Tobacco use Status: Acute Assessment and Plan: Patient continues to smoke but quit the day before admission. His Chantix was resumed. He has been educated about the benefits of smoking cessation. He was also educated extensively about the risks of smoking around oxygen. (7) DVT prophylaxis: Code(s): Z29.9 - Encounter for prophylactic measures, unspecified Status: Acute Assessment and Plan: Lovenox Subjective Date/time seen: 02/07/21 15:29 Interval history: 55yo male with ch respiratory failure and COPD here for SOB and found to have PNA. Cough better but still productive. Down to 1L at rest. HR increased with walking to the BR but he did not have O2 in place. No CP but still has a sensation in the left upper chest. Eating better. Exam Narrative: Exam Narrative: AF 99.9 132/74 92 18 99% 3L Gen - NARD lying semi-recumbent in bed Chest - distant BS with few scattered inspiratory crackles, nml RR, no conversational dyspanea CV -regular rate and rhythm. S1-S2 Abd -soft. Nontender. Positive bowel sounds. Ext - no pedal edema Psych - normal mood and affect Skin - warm and dry. Objective Data Vital Signs Vital Signs: Vital Signs - 24 hr 02/06/21 16
[2021-02-08] VITALS (18 sets, daily range): BP systolic 106–122; BP diastolic 62–83; PULSE 75–100; RESP 18–20; TEMP 35.9–36.6; O2SAT 92–100
[2021-02-08] MEDS: ALBUTEROL SULFATE NEB 2.5 MG/0.5 ML INH 5 MG INHALATION ×4 (03:03→21:17)
[2021-02-08] MEDS: IPRATROPIUM BR 0.02% INH SOLN 0.5 MG/2.5 ML VIAL INHALATION ×4 (03:03→21:17)
[2021-02-08 06:33] LABS: Hematocrit 41.2 % (42.0-52.0); Hemoglobin 13.4 g/dL (14.0-18.0); Mean Corpuscular HGB Conc 32.5 g/dl (32-36); Mean Corpuscular Hemoglobin 31.5 pg (26-34); Mean Corpuscular Volume 96.7 fl (80-100); Mean Platelet Volume 9.8 fl (7.4-10.4); Platelet Count Result 169 k/mm3 (150-375); Red Blood Count 4.26 M/mm3 (4.6-6.20); Red Cell Distribution Width 12.7 % (11.5-14.5); White Blood Count 18.4 K/mm3 (4.5-10.0)
[2021-02-08 06:41] LABS: Albumin Level 3.1 g/dL (3.5-5.1); Anion Gap -1 mmol/L (8-16); Blood Urea Nitrogen 19 mg/dL (9-20); Calcium 8.4 mg/dL (8.4-10.2); Carbon Dioxide 36 mmol/L (22-30); Chloride 98 mmol/L (98-107); Estimated CRCL calculation 94 ml/min; Estimated Glomerular Filt Rate > 60; Glucose 187 mg/dL (75-110); Magnesium 1.9 mg/dL (1.6-2.3); Phosphorus 3.4 mg/dL (2.5-4.5); Potassium 4.2 mmol/L (3.4-5.0); Sodium 133 mmol/L (137-145)
[2021-02-08 07:05] LABS: Lymphocytes Absolute Manual 0.55 K/mm3 (1.1-4.5); Monocytes Absolute Manual 1.84 K/mm3 (0.1-0.90); Monocytes Percent Manual 10 % (3-9); Neutrophils Percent Manual 87 % (46-73); Total Cells Counted 100
[2021-02-08 07:07] LABS: Platelet Estimate Adequate (Adequate)
[2021-02-08] MEDS: ENOXAPARIN 40 MG/0.4 ML SYRINGE SUB-Q (08:05)
[2021-02-08] MEDS: predniSONE 10 MG TABLET 30 MG PO (08:05)
[2021-02-08] MEDS: FAMOTIDINE 20 MG TABLET PO ×2 (08:06→20:18)
[2021-02-08] MEDS: VARENICLINE 1 MG TABLET PO ×2 (08:06→18:33)
--- NOTE | 2021-02-08 10:53 | PCNFU ---
Nutrition Follow-Up Complete: increased energy expenditure as related to COPD/emphysema as evidenced by BMI: 17.2 Goal: Meet estimated nutritional needs Patient has met current goal. No new goal. Pt current nutrition is Regular. Last recorded weight is 48.2 kg, no new weight reported since admit. I called nursing for new weight. Weight was done yesterday 02/07, nursing reported 98.6 ibs. Patient admitted at 106 ibs. This weight was from bed scale. Unsure on accuracy of scale. Bowel Motility:+BM reported 02/07 Labs Reviewed:Glu 187,Na 133,Alb 3.1 Meds Noted:Tylenol,Vanco,Chantix,Lovenox,Prednisone. Additional Notes: Patient seen today for nutrition follow up. He states to eating 100% of a regular diet. He is also receiving Ensure Enlive TID providing an additional 350 kcals and 20 gms protein. Agree with diet orders. Monitoring: Will monitor every 7 days.
--- NOTE | 2021-02-08 12:50 | PM.IMPN ---
Progress Note: A&P Assessment and Plan (1) Chest pain: Code(s): R07.9 - Chest pain, unspecified Status: Acute Assessment and Plan: Patient presents with acute onset left-sided chest pain that woke him from sleep. Concerning for PE but chest x-ray more consistent with pneumonia. This is supported with the elevated white count and low-grade temperature on admission. Elevated white count could be from the Decadron although he has been on this for almost 2 weeks now. CTA showing no PE or cavitary lesions. Abx adjusted. Continue to follow. Okay to stop tele. (2) Community acquired pneumonia: Code(s): J18.9 - Pneumonia, unspecified organism Status: Acute Assessment and Plan: Chest x-ray reviewed by myself showing patchy left upper lobe airspace disease. Most likely pneumonia. CTA showing no PE or cavitary lesions. BCx NGTD. Sputum growing Pseudomonas. Continue nebulizer treatments. Continue Cefepime and Vanco for now (3) COPD (chronic obstructive pulmonary disease): Code(s): J44.9 - Chronic obstructive pulmonary disease, unspecified Status: Acute Assessment and Plan: Concern for COPD exacerbation so Solu-Medrol was started. Not on inhaled steroids anymore for unclear reasons. His Trelegy Ellipta was changed to Spiriva 2 days prior to admission the he states related to insurance reasons. Symbicort has been added. No wheezing appreciated on exam today. Continue Prednisone taper - has been on decadron for 2 weeks so will need to taper slowly. Will continue nebulizer treatments. (4) Leukocytosis: Code(s): D72.829 - Elevated white blood cell count, unspecified Status: Acute Assessment and Plan: WBC 26K on admission with left shift. Suspect related to the steroids (on decadron on admission) and PNA. Repeat WBC improved to 24K but now down to 18K since abx adjusted. Suspect this will trend down with current treatment. (5) Chronic respiratory failure: Code(s): J96.10 - Chronic respiratory failure, unspecified whether with hypoxia or hypercapnia Status: Acute Assessment and Plan: Patient has chronic respiratory failure requiring 3 L at night and 3-4 L with activity. He states he does not require oxygen at rest and does have a pulse oximeter at home. Patient was down to 1L nasal cannula yesterday at rest but back up to 3L. Continue to wean O2 as patient tolerates. (6) Tobacco abuse: Code(s): Z72.0 - Tobacco use Status: Acute Assessment and Plan: Patient continues to smoke but quit the day before admission. His Chantix was resumed. He has been educated about the benefits of smoking cessation. He was also educated extensively about the risks of smoking around oxygen. (7) DVT prophylaxis: Code(s): Z29.9 - Encounter for prophylactic measures, unspecified Status: Acute Assessment and Plan: Lovenox Subjective Date/time seen: 02/08/21 12:50 Interval history: 55yo male with ch respiratory failure and COPD here for SOB and found to have PNA. Feeling much better. Cough better. Eating okay. Exam Narrative: Exam Narrative: AF 97.8 120/74 82 18 97% 3L Gen - NARD lying semi-recumbent in bed Chest - distant BS, nml RR, no conversational dyspanea CV -regular rate and rhythm. S1-S2. Tele showing no significnat dysrhythmias Abd -soft. Nontender. Positive bowel sounds. Ext - no pedal edema Psych - normal mood and affect; in good spirits. Skin - warm and dry. Objective Data Vital Signs Vital Signs: Vital Signs - 24 hr 02/07/21 14:00 02/07/21 14:47 02/07/21 15:16 Temperature 99.9 F H 99.9 F H Pulse Rate 102 H 92 Respiratory Rate 18 18 Blood Pressure 132/74 Pulse Oximetry 99 02/07/21 16:00 02/07/21 18:35 02/07/21 20:00 Temperature 99.2 F Pulse Rate 111 H Respiratory Rate Blood Pressure Pulse Oximetry 97 02/07/21 22:00 0
--- NOTE | 2021-02-08 16:48 | PC.NURSE ---
This nurse noted upon assessment at 1610, patient's pupils unsymmetrical. Right pupil 2 mm, round and reactive to light. Left pupil 5 mm, round and unreactive to light. Denies any pain and or discomfort when asked. Denies headache. Alert and oriented to person, place, location, and purpose. Hand physicist nuclear equal and strong. Smile symmetrical. Dr. Marcellus Petersen notified per this nurse at 1615. No new orders received. Will continue to monitor.
[2021-02-08 18:52] LABS: Pneumococcal Antigen Urine Not Detected (Not Detected)
[2021-02-09] VITALS (14 sets, daily range): BP systolic 106–132; BP diastolic 77–83; PULSE 80–120; RESP 16–20; TEMP 35.8–36.3; O2SAT 95–99
[2021-02-09] MEDS: IPRATROPIUM BR 0.02% INH SOLN 0.5 MG/2.5 ML VIAL INHALATION ×4 (01:39→19:57)
[2021-02-09] MEDS: ALBUTEROL SULFATE NEB 2.5 MG/0.5 ML INH 5 MG INHALATION ×4 (01:39→19:57)
[2021-02-09 05:07] LABS: Basophils Absolute Auto 0.1 K/mm3 (0.0-0.1); Basophils Percent Auto 0.3 % (0.2-1.2); Eosinophils Percent Auto 0.2 % (0-4.4); Hematocrit 43.8 % (42.0-52.0); Hemoglobin 14.3 g/dL (14.0-18.0); Immature Granulocyte Absolute 0.23 K/mm3 (0.00-0.031); Immature Granulocyte Percent A 1.4 % (0-0.5); Lymphocytes Absolute Auto 1.03 K/mm3 (0.9-3.2); Lymphocytes Percent Auto 6.2 % (18.3-44.2); Mean Corpuscular HGB Conc 32.6 g/dl (32-36); Mean Corpuscular Hemoglobin 31.9 pg (26-34); Mean Corpuscular Volume 97.8 fl (80-100); Mean Platelet Volume 9.4 fl (7.4-10.4); Monocytes Absolute Auto 1.3 K/mm3 (0.1-0.6); Monocytes Percent Auto 7.7 % (2.6-8.5); Neutrophils Percent Auto 84.2 % (45.5-73.1); Platelet Count Result 210 k/mm3 (150-375); Red Blood Count 4.48 M/mm3 (4.6-6.20); Red Cell Distribution Width 12.7 % (11.5-14.5); White Blood Count 16.6 K/mm3 (4.5-10.0)
[2021-02-09 05:37] LABS: Vancomycin Trough < 5.0 ug/mL (10.0-20.0)
[2021-02-09] MEDS: predniSONE 10 MG TABLET 30 MG PO (09:01)
[2021-02-09] MEDS: ENOXAPARIN 40 MG/0.4 ML SYRINGE SUB-Q (09:01)
[2021-02-09] MEDS: FAMOTIDINE 20 MG TABLET PO ×2 (09:01→20:12)
[2021-02-09] MEDS: VARENICLINE 1 MG TABLET PO ×2 (09:02→17:13)
--- NOTE | 2021-02-09 13:46 | PM.IMPN ---
Progress Note: A&P Assessment and Plan (1) Chest pain: Code(s): R07.9 - Chest pain, unspecified Status: Acute Assessment and Plan: Patient presents with acute onset left-sided chest pain that woke him from sleep. Concerning for PE but chest x-ray more consistent with pneumonia. This is supported with the elevated white count and low-grade temperature on admission. Elevated white count could be from the Decadron although he has been on this for almost 2 weeks now. CTA showing no PE or cavitary lesions. Abx adjusted. Continue to follow. (2) Community acquired pneumonia: Code(s): J18.9 - Pneumonia, unspecified organism Status: Acute Assessment and Plan: Chest x-ray reviewed by myself showing patchy left upper lobe airspace disease. Most likely pneumonia. CTA showing RALPH PNA but no PE or cavitary lesions. BCx NGTD. Sputum growing Pseudomonas but sensitivities pending. Continue nebulizer treatments. Continue Cefepime but stop Vanco now (3) COPD (chronic obstructive pulmonary disease): Code(s): J44.9 - Chronic obstructive pulmonary disease, unspecified Status: Acute Assessment and Plan: Concern for COPD exacerbation so Solu-Medrol was started. Not on inhaled steroids anymore for unclear reasons. His Trelegy Ellipta was changed to Spiriva 2 days prior to admission the he states related to insurance reasons. Symbicort has been added here. No wheezing appreciated on exam today. Continue Prednisone taper - has been on Decadron for 2 weeks prior to admission so will need to taper slowly. Will continue nebulizer treatments. (4) Leukocytosis: Code(s): D72.829 - Elevated white blood cell count, unspecified Status: Acute Assessment and Plan: WBC 26K on admission with left shift. Suspect related to the steroids (on decadron on admission) and PNA. Repeat WBC now down to 16.6K since abx adjusted. Suspect this will trend down with current treatment. (5) Chronic respiratory failure: Code(s): J96.10 - Chronic respiratory failure, unspecified whether with hypoxia or hypercapnia Status: Acute Assessment and Plan: Patient has chronic respiratory failure requiring 3 L at night and 3-4 L with activity. He states he does not require oxygen at rest and does have a pulse oximeter at home. Patient was down to 1L nasal cannula this morning at rest but back up to 3L. Continue to wean O2 as patient tolerates. Home O2 evaluation tomorrow to assess needs. (6) Tobacco abuse: Code(s): Z72.0 - Tobacco use Status: Acute Assessment and Plan: Patient continues to smoke but quit the day before admission. His Chantix was resumed. He has been educated about the benefits of smoking cessation. He was also educated extensively about the risks of smoking around oxygen. (7) DVT prophylaxis: Code(s): Z29.9 - Encounter for prophylactic measures, unspecified Status: Acute Assessment and Plan: Lovenox Subjective Date/time seen: 02/09/21 13:46 Interval history: 55yo male with ch respiratory failure and COPD here for SOB and found to have PNA. Slept okay. Eating normally. No complaints Exam Narrative: Exam Narrative: AF 97.3 106/77 101 20 96% 3L Gen - NARD lying almost flat in bed Chest - distant, clear BS; nml RR CV -regular rate and rhythm. S1-S2 Abd -soft. Nontender. Positive bowel sounds. Ext - no pedal edema Psych - normal mood and affect Skin - warm and dry. Objective Data Vital Signs Vital Signs: Vital Signs - 24 hr 02/08/21 14:00 02/08/21 14:15 02/08/21 16:15 Temperature 97.9 F 97.6 F Pulse Rate 100 86 89 Respiratory Rate 20 20 20 Blood Pressure 106/62 122/83 Pulse Oximetry 95 92 02/08/21 19:50 02/08/21 21:19 02/08/21 21:31 Temperature Pulse Rate 88 85 88 Respiratory Rate 18 20 20 Blood Pressure Pulse Oximetry 100 02/08/21 21:32 02/08/21 21
[2021-02-09 16:59] LABS: Legionella pneumophila Ag Ur Not Detected (Not Detected)
[2021-02-10 01:38] VITALS: PULSE 99; RESP 20
[2021-02-10] MEDS: IPRATROPIUM BR 0.02% INH SOLN 0.5 MG/2.5 ML VIAL INHALATION ×2 (01:38→08:22)
[2021-02-10] MEDS: ALBUTEROL SULFATE NEB 2.5 MG/0.5 ML INH 5 MG INHALATION ×2 (01:38→08:22)
[2021-02-10 01:39] VITALS: O2SAT 95
[2021-02-10 01:47] VITALS: PULSE 94; RESP 20
[2021-02-10 06:00] VITALS: BP 129/82; PULSE 84; RESP 16; TEMP 36.1; O2SAT 94
[2021-02-10 06:24] LABS: Hematocrit 42.8 % (42.0-52.0); Hemoglobin 14.3 g/dL (14.0-18.0); Mean Corpuscular HGB Conc 33.4 g/dl (32-36); Mean Corpuscular Hemoglobin 32.4 pg (26-34); Mean Corpuscular Volume 97.1 fl (80-100); Mean Platelet Volume 9.2 fl (7.4-10.4); Platelet Count Result 199 k/mm3 (150-375); Red Blood Count 4.41 M/mm3 (4.6-6.20); Red Cell Distribution Width 12.8 % (11.5-14.5); White Blood Count 12.7 K/mm3 (4.5-10.0)
[2021-02-10 06:42] LABS: Anion Gap 0 mmol/L (8-16); Blood Urea Nitrogen 22 mg/dL (9-20); Calcium 8.8 mg/dL (8.4-10.2); Carbon Dioxide 38 mmol/L (22-30); Chloride 98 mmol/L (98-107); Estimated CRCL calculation 80 ml/min; Estimated Glomerular Filt Rate > 60; Glucose 137 mg/dL (75-110); Potassium 4.1 mmol/L (3.4-5.0); Sodium 136 mmol/L (137-145)
[2021-02-10 08:26] VITALS: PULSE 98; RESP 20; O2SAT 95
[2021-02-10 08:38] VITALS: PULSE 100; RESP 20
[2021-02-10] MEDS: predniSONE 20 MG TABLET PO (09:10)
[2021-02-10] MEDS: VARENICLINE 1 MG TABLET PO (09:10)
[2021-02-10] MEDS: ENOXAPARIN 40 MG/0.4 ML SYRINGE SUB-Q (09:10)
[2021-02-10] MEDS: FAMOTIDINE 20 MG TABLET PO (09:11)
--- NOTE | 2021-02-10 11:40 | PM.DS ---
DS: Admitting Diagnosis Admitting Diagnosis Admitting Diagnosis: SOB DS: Discharge Diagnosis Discharge Diagnosis (1) Chest pain: Code(s): R07.9 - Chest pain, unspecified Status: Acute Assessment and Plan: Patient presents with acute onset left-sided chest pain that woke him from sleep. Chest x-ray consistent with pneumonia. This is supported with the elevated white count and low-grade temperature on admission. EKG showing sinus arrhythmia, short ME and delayed transition. Troponin negative x1. Elevated white count could be from the Decadron that he was taking prior to admission. CTA showing no PE or cavitary lesions. [place] overall that the CP was from PNA. (2) Community acquired pneumonia: Code(s): J18.9 - Pneumonia, unspecified organism Status: Acute Assessment and Plan: Chest x-ray reviewed by myself showing patchy left upper lobe airspace disease. Most likely pneumonia. CTA showing RALPH PNA but no PE or cavitary lesions. Patient initially was started on Rocephin and Azithromycin. He was started on nebulizer treatments as well. His WBC remained persistently elevated so his abx changed to Cefepime and Vanco. BCx NGTD. Sputum growing pansensitive Pseudomonas so Vanco stopped. Plan home with Levaquin. (3) COPD (chronic obstructive pulmonary disease): Code(s): J44.9 - Chronic obstructive pulmonary disease, unspecified Status: Acute Assessment and Plan: Concern for COPD exacerbation so Solu-Medrol was started on admission. Not on inhaled steroids anymore for unclear reasons. His Trelegy Ellipta was changed to Spiriva 2 days prior to admission that he states related to insurance reasons. Symbicort was added here. He was transitioned to Prednisone with taper - has been on Decadron for 2 weeks prior to admission so will need to taper slowly. We continued the nebulizer treatments. (4) Leukocytosis: Code(s): D72.829 - Elevated white blood cell count, unspecified Status: Acute Assessment and Plan: WBC 26K on admission with left shift. Suspect related to the steroids (on decadron on admission) and PNA. Repeat WBC did not improve initially but started to trend down after changing abx. WBC 12K today. (5) Chronic respiratory failure: Code(s): J96.10 - Chronic respiratory failure, unspecified whether with hypoxia or hypercapnia Status: Acute Assessment and Plan: Patient has chronic respiratory failure requiring 3 L at night and 3-4 L with activity. He states he does not require oxygen at rest and does have a pulse oximeter at home. With the above treatment, patient was able to be weaned t room air at rest. Home O2 evaluation performed and patient was able to stay off O2 with walking slowly on flat surface. He states he does have low SpO2 when he exerts himself. Recommended to patient to continue to use 3L O2 at night ans with more active exertion but okay to stay off O2 just walking room to room. Patient voices understanding of this. (6) Tobacco abuse: Code(s): Z72.0 - Tobacco use Status: Acute Assessment and Plan: Patient continues to smoke but quit the day before admission. His Chantix was resumed. He has been educated about the benefits of smoking cessation. He was also educated extensively about the risks of smoking around oxygen. DS: Summary Hospital Course Reason for hospitalization: 55yo male with COPD and chronic respiratory failure here for SOB, chest pain and cough. Please see H&P for details. Hospital Course: Please see above for details of hospital course. Time Spent with Patient Time attestation: Total time spent providing and/or coordinating discharge services:40 minutes Time spent: Greater than 30 minutes Exam Narrative: Exam Narrative: AF 96.9 129/82 100 20 95% 3L Gen - NARD lying almost flat in bed resting quietly Chest - distant, clear BS; nml RR CV - regula
== END 2021-02-10 13:00 | disposition home or self-care (01) | DRG 139 ==
LOC: ANHED 06:41 → ANH3MEDSUR 09:36
PROVIDERS: Admitting Provider Internal Medicine; Emergency Provider Emergency Medicine; PCP Family Medicine; Visit Provider Internal Medicine
DX: J18.9 Pneumonia, unspecified organism (principal); F41.8 Other specified anxiety disorders; J96.10 Chronic respiratory failure, unspecified whether with hypoxia or hypercapnia; Z72.0 Tobacco use; J44.1 Chronic obstructive pulmonary disease with (acute) exacerbation
CPT/HCPCS: 36415; 36600; 71045; 71275; 80048; 80053; 80069; 80202; 82805; 83735; 84484; 85025; 85027; 86140; 87040; 87070; 87077; 87186; 87205; 87449; 87899; 93005; 94618; 94640; 96374; 97161; 99285; A9270; J0456; J0692; J0696; J1650; J1885; J2930; J3370; J7512; Q9967

== ENCOUNTER 2021-10-17 16:30 | Outpatient (RCR) | payer OTHER, SELFPAY ==
--- NOTE | 2021-07-12 09:29 | PCCPR ---
pt cxl ME today- tested negative for COVID results tues 07/09 but still not feeling well enough to attend. Plans to return 07/23
== END 2021-10-17 23:59 | disposition home or self-care (01) ==
LOC: ANHCPREHAB 16:30
PROVIDERS: PCP Nurse Practitioner Adult Health
DX: J44.9 Chronic obstructive pulmonary disease, unspecified (principal)
CPT/HCPCS: 97150; G0424

== ENCOUNTER 2021-11-05 22:20 | Emergency (ER) | payer OTHER, SELFPAY ==
--- NOTE | ~2021-11-05 | XR_ITS ---
EXAMINATION: XR chest 1V portable DATE: 11/06/2021 01:22 INDICATION: Dyspnea. Right-sided chest pain with breathing. TECHNIQUE: frontal view of the chest was obtained. COMPARISON: Chest radiograph dated 02/06/[address] dated 02/07/2021 FINDINGS: Severe emphysema with hyperexpansion of lungs and scattered regions of increased lucency with archite ctural distortion. Bandlike opacity in the left upper lung zone likely residual scarring at the site of the previously seen pneumonia. There are few scattered nodular opacities throughout both lungs, a few which appear unchanged but the most prominent measuring 1.2 cm project over the anterior left six th rib appears new since the prior study. No pulmonary edema or pneumothorax. Mild blunting at the bi lateral costophrenic angles consistent with tiny bilateral pleural effusions. Cardiomediastinal silho uette is normal. IMPRESSION: 1. New 1.2 cm nodular opacity projecting over the left lower lung zone. Recommend low-dose noncontras t chest CT for further evaluation. 2. Severe emphysema with residual discoid atelectasis/scarring the left upper lung zone at the site o f a prior pneumonia. 3. Tiny bilateral pleural effusions. Reviewed, dictated and finalized at location A. SCAPE MANAGER IMPRESSION: 1. New 1.2 cm nodular opacity projecting over the left lower lung zone. Recomme nd low-dose noncontrast chest CT for further evaluation. 2. Severe emphysema with residual discoid atelectasis/scarring the left upper l [place] zone at the site of a prior pneumonia. 3. Tiny bilateral pleural effusions.
[2021-11-05 22:22] VITALS: BP 128/88; PULSE 100; RESP 24; TEMP 36.1; O2SAT 96
--- NOTE | 2021-11-05 23:58 | ECG_ITS ---
Measurements Intervals [place] Rate: 67 P: 87 [place]: 103 QRS: 89 QRSD: 85 T: 81 QT: 323 QTc: 343 Interpretive Statements SINUS RHYTHM WITH MARKED SINUS ARRHYTHMIA WITH SHORT [place] INTERVAL BASELINE ARTIFACT- I, II, III, AVR, AVL, AVF, V3-V6 BORDERLINE ECG Electronically Signed On 11-06-2021 6:36:01 NURSERY RN by Nicko Queen D.O.
[2021-11-06 00:29] VITALS: PULSE 90; RESP 19
[2021-11-06] MEDS: ALBUTEROL SULFATE NEB 2.5 MG/0.5 ML INH 5 MG INHALATION (00:29)
[2021-11-06] MEDS: methylPREDNISolone SOD SUCC 125 MG VIAL IV PUSH (00:34)
[2021-11-06 00:47] VITALS: PULSE 95; RESP 23
--- NOTE | 2021-11-06 00:59 | ED.GENADULT ---
HPI - General Adult General Chief complaint: Unspecified Stated complaint: painful breathing Time Seen by Provider: 11/05/21 23:58 History of Present Illness HPI narrative: Patient 56-year-old gentleman who presents the emergency department chief complaint of shortness of breath and increased oxygen requirement. The patient states that he has history of COPD is in pulmonary rehab. The patient reports that he has required additional oxygen and normally just wears oxygen whenever he has strenuous physical activity or is sleeping the patient states now he is having to use his rest. Patient denies fever patient denies vomiting reports that he has had a cough with this. The patient states it feels as though his lungs are very tight Related Data Home Medications Medication Instructions Recorded Confirmed Chantix Continuing Month Box 1 mg PO BID 02/05/21 02/05/21 Spiriva with HandiHaler 1 cap INHALATION DAILY 02/05/21 02/05/21 Allergies Allergy/AdvReac Type Severity Reaction Status Date / Time No Known Allergies Allergy Unverified 11/05/21 22:26 Review of Systems Review of Systems: A 10 system review of systems was completed on the patient and is negative except for what is stated in the HPI. Nursing and ancillary documentation was reviewed. [facility] Past Medical History Medical History ADD (attention deficit disorder) Asthma Chronic respiratory failure COPD (chronic obstructive pulmonary disease) Depression with anxiety Surgical History Surgical History Hx of tonsillectomy Family History Family History Sibling Depression Family history of mental disorder Family history of chronic obstructive pulmonary disease Family history of heart disease in male family member before age 55 Mother Family history of irritable bowel syndrome Hypertension Cerebrovascular accident Family history of heart disease in male family member before age 55 Father Acute myocardial infarction Family history of heart disease in male family member before age 55 Mother Hypertension Cerebrovascular accident Father Heart disease Heart attack Pulmonary disease Social History Social History Social History: Tobacco 1ppd x 35 yrs. Lives with son. Denies alcohol or drug use. He is a full code. He nominated his son to be the individual would make medical decisions for him if he is not able. Smoking packs per day: 1 Smoking cigarettes per day: 20.0 Years smoked: 35 Smoking pack-years: 35.00 Smoking status: Former smoker Tobacco type: cigarettes Second hand tobacco smoke exposure: No Smoking end date: 02/04/21 Alcohol intake: never Substance use: never Gender identity (if verbalized by the patient): Male Spiritual care concerns: No Exam Narrative: GENERAL: Well-appearing, well-nourished, and in no acute distress. HEAD: Normocephalic, atraumatic. EYES: PERRLA and EOMI. ENT: Nares clear, no rhinorrhea or epistaxis. Mucous membranes moist. NECK: Supple. CHEST: Clear to auscultation. No respiratory distress. HEART: Regular rate and rhythm. No murmur heard. Normal peripheral pulses. ABDOMEN: Soft, nontender, nondistended, normal active bowel sounds. EXTREMITIES: Normal range of motion. No edema. SKIN: Warm, dry, no rash. NEURO: No focal deficits. Alert and oriented x3. PSYCH: Normal mood and affect. Course Vital Signs Vital signs: Vital Signs Temperature 36.1 C L 11/05/21 22:22 Pulse Rate 100 11/05/21 22:22 Respiratory Rate 24 H 11/05/21 22:22 Blood Pressure 128/88 11/05/21 22:22 Pulse Oximetry 96 11/05/21 22:22 Temperature 36.1 C L 11/05/21 22:22 Pulse Rate 95 11/06/21 00:47 Respiratory Rate 23 H 11/06/21 00:47 Blood
[2021-11-06 01:03] LABS: EDCOVIDSCREEN Negative (Negative)
[2021-11-06 01:07] LABS: NT Pro B Type Natriuretic Pept 57 pg/mL (5-100); Troponin I 0.021 ng/mL (0.000-0.034)
[2021-11-06 01:09] LABS: Alveolar/Arterial O2 Gradient 50.2 mmHg; Base Excess ABG 3.7 mEq/l (+/-2.0); Fractional Inspired Oxygen 32 %; Oxygen Content ABG 20.3 %vol (16.0-22.0); Oxygen Saturation ABG 98.5 % (95.0-100.0); Oxyhemoglobin 96.9 % THb (90.0-100.0); PCO2 ABG 45.9 mmHg (35.0-45.0); PO2 ABG 124.3 mmHg (80.0-100.0); PO2 FiO2 Ratio Arterial Blood 3.88 %; Total Hemoglobin 14.8 g/dL (12.0-18.0); pH ABG 7.418 (7.350-7.450)
[2021-11-06 01:11] LABS: Device NASAL CANNULA; Site Drawn RIGHT BRACHIAL
[2021-11-06 01:55] LABS: Basophils Absolute Auto 0.1 K/mm3 (0.0-0.1); Basophils Percent Auto 0.5 % (0.2-1.2); Eosinophils Absolute Auto 0.4 K/mm3 (0-0.3); Eosinophils Percent Auto 2.7 % (0-4.4); Hematocrit 45.8 % (42.0-52.0); Hemoglobin 15.1 g/dL (14.0-18.0); Immature Granulocyte Absolute 0.04 K/mm3 (0.00-0.031); Immature Granulocyte Percent A 0.3 % (0-0.5); Lymphocytes Percent Auto 9.1 % (18.3-44.2); Mean Corpuscular Hemoglobin 31.3 pg (26-34); Mean Corpuscular Volume 94.8 fl (80-100); Mean Platelet Volume 9.6 fl (7.4-10.4); Monocytes Absolute Auto 0.7 K/mm3 (0.1-0.6); Monocytes Percent Auto 5.5 % (2.6-8.5); Neutrophils Absolute Auto 10.8 K/mm3 (1.3-6.7); Neutrophils Percent Auto 81.9 % (45.5-73.1); Platelet Count Result 184 k/mm3 (150-375); Red Blood Count 4.83 M/mm3 (4.6-6.20); Red Cell Distribution Width 11.7 % (11.5-14.5); White Blood Count 13.2 K/mm3 (4.5-10.0)
[2021-11-06 02:15] LABS: Alanine Aminotransferase 24 U/L (4-50); Albumin Level 4.5 g/dL (3.5-5.1); Alkaline Phosphatase 93 U/L (38-126); Anion Gap 10 mmol/L (8-16); Aspartate Amino Transferase 26 U/L (17-59); Bilirubin,Total 1.3 mg/dL (0.2-1.3); Blood Urea Nitrogen 11 mg/dL (9-20); Calcium 9.2 mg/dL (8.4-10.2); Carbon Dioxide 28 mmol/L (22-30); Chloride 99 mmol/L (98-107); Estimated CRCL calculation 86 ml/min; Estimated Glomerular Filt Rate > 60; Glucose 113 mg/dL (65-110); Potassium 3.9 mmol/L (3.4-5.0); Sodium 137 mmol/L (137-145)
[2021-11-06 02:35] VITALS: PULSE 61; RESP 18; O2SAT 100
== END 2021-11-06 02:35 | disposition home or self-care (01) ==
PROVIDERS: Emergency Provider Emergency Medicine; PCP Nurse Practitioner Adult Health
DX: J44.1 Chronic obstructive pulmonary disease with (acute) exacerbation (principal); Z20.822 Contact with and (suspected) exposure to COVID-19; J96.10 Chronic respiratory failure, unspecified whether with hypoxia or hypercapnia; Z87.891 Personal history of nicotine dependence; R94.31 Abnormal electrocardiogram [ECG] [EKG]
CPT/HCPCS: 36415; 36600; 71045; 80053; 82805; 83605; 83735; 83880; 84484; 85025; 87426; 93005; 94640; 96374; 99284; C9803; J2930

== ENCOUNTER 2021-12-29 19:52 | Inpatient (IN) | payer OTHER, SELFPAY ==
[2021-12-29] VITALS (7 sets, daily range): BP systolic 105–122; BP diastolic 81–94; PULSE 104–133; RESP 16–29; TEMP 35.9–36.5; O2SAT 97–100; BMI 14.8
--- NOTE | ~2021-12-29 | XR_ITS ---
XR chest-chest tube insert/pos 12/29/2021 21:01 Indication: Chest tube insertion Procedure: AP portable chest Comparison: 12/29/2021 Findings: Decreased size of right pneumothorax with small residual pneumothorax post tube insertion. Severe emphysema. Left upper lobe scarring/atelectasis reidentified. Impression: 1: Significantly decreased size of right pneumothorax post chest tube insertion.. Reviewed, dictated and finalized at location A. ERY WORKER Impression: 1: Significantly decreased size of right pneumothorax post chest tube insertion ..
--- NOTE | ~2021-12-29 | XR_ITS ---
XR chest 1V portable 12/29/2021 20:08 Indication: Dyspnea and shortness of breath Procedure: AP portable chest Comparison: No prior studies for comparison. Findings: There is a large right pneumothorax with mediastinal shift to the left. There is left upper lobe atelectasis/scarring. The lungs are hyperinflated which is consistent with, but not diagnostic of chronic obstructive pulmonary disease. Impression: 1: Large right pneumothorax with mediastinal shift to the left. 2: Left upper lobe atelectasis/scarring. Dr. Sachin Marin discussed with Dr. Vidal Franz MD at 12/29/2021 20:10 BAG PRESSER. Reviewed, dictated and finalized at location A. PRESSER Impression: 1: Large right pneumothorax with mediastinal shift to the left. 2: Left upper lobe atelectasis/scarring. Dr. Sachin Marin discussed with Dr. Vidal Franz MD at 12/29/2021 20:10 BAG PRESSER.
--- NOTE | ~2021-12-29 | CT_ITS ---
EXAMINATION: CT diagnostic chest wo con DATE: 12/30/2021 12:26 INDICATION: COPD, pneumothorax, chest tube TECHNIQUE: Computed tomography (CT) of the chest was performed without intravenous contrast. The dose -length product (DLP) was 149.71 mGy-cm. Automated exposure control and iterative reconstruction tech [employer] were employed. COMPARISON: 02/07/2021 FINDINGS: There is severe emphysema. A small right pneumothorax is present. There is a chest tube end ing anteromedially in the right pleural space. There is a stable 6 mm nodule of the right lower lobe. There is a stable 7 mm nodule of the right upper lobe. Scarring is present posteriorly in the right lung apex. There is also an area of decreased chronic scarring in the left upper lobe at the site of prior infection. There is a 4 mm nodule of the left upper lobe. A trace right pleural effusion is pre sent. No pathologically enlarged thoracic lymph nodes are identified. The heart size is normal. There is a small amount of gas in the right lateral chest wall. There is mild thoracic spondylosis. IMPRESSION: 1. Right-sided chest tube in place with small right pneumothorax. 2. Stable bilateral pulmonary nodules, likely sequela of prior infection. 3. Severe emphysema. Reviewed, dictated and finalized at location B. F REPORTER
--- NOTE | ~2021-12-29 | XR_ITS ---
EXAMINATION: XR chest 1V portable DATE: 01/03/2022 05:24 INDICATION: Right pneumothorax. TECHNIQUE: A single frontal view of the chest was obtained. COMPARISON: Chest single view 01/02/2022 FINDINGS: There is a moderate-sized right pneumothorax. There are lucencies and interstitial opacitie s in the lungs, consistent with emphysema. There is bandlike scarring in left upper lobe. No pleural effusion. The heart size is normal. A right-sided chest tube is noted. There is gas in right chest wa ll and right neck. IMPRESSION: 1. Worsened moderate-sized right pneumothorax with unchanged chest tube. 2. Severe emphysema with mild scarring. Reviewed, dictated and finalized at location A. R SPRING ASSEMBLER
--- NOTE | ~2021-12-29 | XR_ITS ---
EXAMINATION: XR chest 1V portable INDICATION: Increased shortness of breath TECHNIQUE: Portable AP chest at 1002 hours COMPARISON: 12/31/2021 FINDINGS: A right-sided chest tube is in position. There is a small right pneumothorax with increase in size. Small pleural effusions are present. There is severe emphysema. The cardiomediastinal silhou ette is normal. There is question of free intraperitoneal gas under the left hemidiaphragm. IMPRESSION: 1. Small right pneumothorax with slight increase in size. Chest tube unchanged in position. 2. Possible free intraperitoneal gas. Upright and supine views of the abdomen are recommended. 3. Small pleural effusions. These findings and recommendations were discussed with JASMINE Carmichael at 1012 hours on 01/01/20 22. Reviewed, dictated and finalized at location B. INES TECHNICIAN IMPRESSION: 1. Small right pneumothorax with slight increase in size. Chest tube unchanged in position. 2. Possible free intraperitoneal gas. Upright and supine views of the abdomen a re recommended. 3. Small pleural effusions. These findings and recommendations were discussed with JASMINE Carmichael a t 1012 hours on 12/31/2021.
--- NOTE | ~2021-12-29 | XR_ITS ---
EXAMINATION: XR chest 1V portable DATE: 01/02/2022 05:27 INDICATION: Right pneumothorax. TECHNIQUE: A single frontal view of the chest was obtained. COMPARISON: Chest single view 01/01/2022 FINDINGS: The lungs are hyperexpanded with lucencies and interstitial opacities, consistent with emph ysema. There is a small right apical pneumothorax. A right-sided chest tube is noted. There is bandli ke scarring in left upper lobe. No pleural effusion or pneumothorax. The heart size is normal. There is soft tissue gas in right chest wall and right neck. IMPRESSION: 1. Stable small right pneumothorax with chest tube in unchanged position. 2. Severe emphysema with mild scarring. Reviewed, dictated and finalized at location A. TING AND COATING WORKER
--- NOTE | ~2021-12-29 | XR_ITS ---
EXAMINATION: XR chest 1V portable DATE: 01/01/2022 05:57 INDICATION: Right pneumothorax. TECHNIQUE: A single frontal view of the chest was obtained. COMPARISON: Chest single view 12/31/2021 FINDINGS: There are lucencies and interstitial opacities in the lungs, consistent with emphysema. The re is bandlike scarring in left upper lobe. There are scattered mild airspace opacities in the lungs, likely atelectasis. There is a small right hydropneumothorax. A right-sided chest tube is noted. The re is gas in right chest wall and right neck. IMPRESSION: 1. Small right hydropneumothorax with interval improvement. Right-sided chest tube noted. 2. Severe emphysema with mild scarring and atelectasis.. Reviewed, dictated and finalized at location A. GION DEPARTMENT CHAIR IMPRESSION: 1. Small right hydropneumothorax with interval improvement. Right-sided chest t ube noted. 2. Severe emphysema with mild scarring and atelectasis..
--- NOTE | ~2021-12-29 | CT_ITS ---
EXAMINATION: CT abdomen pelvis w con DATE: 12/31/2021 11:49 INDICATION: Free intraperitoneal gas. TECHNIQUE: Computed tomography (CT) of the abdomen and pelvis was performed with 100 mL Omnipaque 350 intravenous contrast. Automated exposure control and iterative reconstruction technique were employe d. The dose-length product was 182.49 mGy-cm. COMPARISON: CT abdomen and pelvis 12/15/2015, chest CT 02/07/21, 12/30/21 FINDINGS: The visualized portions of the lung bases demonstrate severe emphysema. There is an 8 mm no dule in left lower lobe, worsened from 12/30/21, likely benign. There is an 8 mm nodule in right lower lobe, stable from 02/07/21, likely benign. There is a small right pleural effusion and moderate-sized right pneumothorax. Partially visualized is a right-sided chest tube. There is gas in right chest wal l. The heart size is normal. No pericardial effusion. The liver demonstrates focal steatosis in the g allbladder fossa. The gallbladder, spleen, pancreas, adrenal glands, and right kidney are normal. The re is a 2.5 cm hemorrhagic cyst in left kidney. There are cysts in left kidney measuring up to 12 mm. There are no dilated loops of bowel. The appendix is not visualized. There are no pathologically enl arged lymph nodes. There is no free intraperitoneal fluid. There is a 10 mm nonaggressive lytic lesio n with sclerotic margin in right ilium, likely benign. There is mild lumbar spondylosis. IMPRESSION: 1. No free intraperitoneal gas. 2. Moderate-sized right pneumothorax and small right pleural effusion with right-sided chest tube not ed. 3. Severe emphysema. Reviewed, dictated and finalized at location A. IC WORKS TECHNICIAN IMPRESSION: 1. No free intraperitoneal gas. 2. Moderate-sized right pneumothorax and small right pleural effusion with righ t-sided chest tube noted. 3. Severe emphysema.
--- NOTE | ~2021-12-29 | XR_ITS ---
EXAMINATION: XR chest 1V portable DATE: 12/31/2021 05:40 INDICATION: Right pneumothorax. TECHNIQUE: A single frontal view of the chest was obtained. COMPARISON: Chest single view 12/30/2021 FINDINGS: There are lucencies and interstitial opacities in the lungs, consistent with emphysema. The re is mild atelectasis in right lung. There is bandlike scarring in left upper lobe. No pleural effus ion. There is a small right pneumothorax. A right-sided chest tube is again seen. The heart size is n ormal. IMPRESSION: 1. Worsened small right pneumothorax with chest tube unchanged. 2. Severe emphysema. 3. Mild atelectasis in right lung. Reviewed, dictated and finalized at location A. PROCESSING SUPERVISOR
--- NOTE | ~2021-12-29 | XR_ITS ---
EXAMINATION: XR chest 1V portable DATE: 12/30/2021 09:52 INDICATION: Shortness of breath. TECHNIQUE: A single frontal view of the chest was obtained. COMPARISON: Chest single view 12/29/2021, chest CT 02/07/2021 FINDINGS: The lungs are hyperexpanded with lucencies, consistent with emphysema. There are bandlike a irspace opacities in left upper lobe. Again seen is a 6 mm nodule in right upper lobe, likely benign. There is a small right apical pneumothorax. A right-sided chest tube is noted. No pleural effusion. The heart size is normal. IMPRESSION: 1. Small right pneumothorax with interval improvement with unchanged right-sided chest tube. 2. Severe emphysema. 3. Bandlike airspace opacities in left upper lobe, likely scarring. Reviewed, dictated and finalized at location A. ER FITTER HELPER IMPRESSION: 1. Small right pneumothorax with interval improvement with unchanged right-side d chest tube. 2. Severe emphysema. 3. Bandlike airspace opacities in left upper lobe, likely scarring.
--- NOTE | 2021-12-29 19:56 | ECG_ITS ---
Measurements Intervals [place] Rate: 119 P: 97 AR: 102 QRS: 97 QRSD: 93 T: -84 QT: 292 QTc: 411 Interpretive Statements SINUS TACHYCARDIA WITH SHORT AR INTERVAL RIGHT ATRIAL ENLARGEMENT [0.3mV P WAVE] LEFT ATRIAL ENLARGEMENT [-0.15mV P WAVE IN V1/V2] BORDERLINE RIGHT AXIS DEVIATION [QRS AXIS > 90] PATTERN CONSISTENT WITH PULMONARY DISEASE ST DEVIATION AND MODERATE T-WAVE ABNORMALITY, CONSIDER INFERIOR ISCHEMIA [-0.1+ mV T WAVE IN II/aVF] ABNORMAL ECG NO PREVIOUS ECG AVAILABLE FOR COMPARISON Electronically Signed On 12-30-2021 13:59:48 DRILLING SUPERINTENDENT by Danilo Berman M.D.
[2021-12-29 20:12] LABS: Basophils Absolute Auto 0.1 K/mm3 (0.0-0.1); Basophils Percent Auto 0.8 % (0.2-1.2); Eosinophils Absolute Auto 0.4 K/mm3 (0-0.3); Eosinophils Percent Auto 4.7 % (0-4.4); Hematocrit 49.7 % (42.0-52.0); Hemoglobin 16.1 g/dL (14.0-18.0); Immature Granulocyte Absolute 0.02 K/mm3 (0.00-0.031); Immature Granulocyte Percent A 0.2 % (0-0.5); Lymphocytes Absolute Auto 1.97 K/mm3 (0.9-3.2); Lymphocytes Percent Auto 22.4 % (18.3-44.2); Mean Corpuscular HGB Conc 32.4 g/dl (32-36); Mean Corpuscular Hemoglobin 31.9 pg (26-34); Mean Corpuscular Volume 98.4 fl (80-100); Mean Platelet Volume 9.4 fl (7.4-10.4); Monocytes Absolute Auto 0.8 K/mm3 (0.1-0.6); Monocytes Percent Auto 9.5 % (2.6-8.5); Neutrophils Absolute Auto 5.5 K/mm3 (1.3-6.7); Neutrophils Percent Auto 62.4 % (45.5-73.1); Platelet Count Result 204 k/mm3 (150-375); Red Blood Count 5.05 M/mm3 (4.6-6.20); Red Cell Distribution Width 11.4 % (11.5-14.5); White Blood Count 8.8 K/mm3 (4.5-10.0)
--- NOTE | 2021-12-29 20:12 | PC.NURSE ---
Pt requesting call to Luis baeza: [phone]
[2021-12-29] MEDS: ALBUTEROL SULFATE NEB 2.5 MG/0.5 ML INH 15 MG INHALATION (20:15)
[2021-12-29] MEDS: IPRATROPIUM BR 0.02% INH SOLN 0.5 MG/2.5 ML VIAL 1.5 MG INHALATION (20:16)
[2021-12-29 20:17] LABS: Glucose Point of Care 147 mg/dl (65-105)
--- NOTE | 2021-12-29 20:18 | PC.NURSE ---
called Luis, son, at request of patient. Gave update on plan of care, status, and pneumothorax.
[2021-12-29 20:22] LABS: Alanine Aminotransferase 34 U/L (4-50); Albumin Level 4.4 g/dL (3.5-5.1); Alkaline Phosphatase 85 U/L (38-126); Aspartate Amino Transferase 40 U/L (17-59); Bilirubin,Total 1.2 mg/dL (0.2-1.3); Blood Urea Nitrogen 16 mg/dL (9-20); Calcium 9.1 mg/dL (8.4-10.2); Carbon Dioxide > 40 mmol/L (22-30); Chloride 91 mmol/L (98-107); Estimated CRCL calculation 70 ml/min; Estimated Glomerular Filt Rate > 60; Glucose 156 mg/dL (65-110); Potassium 4.3 mmol/L (3.4-5.0); Sodium 140 mmol/L (137-145)
[2021-12-29 20:29] LABS: Alveolar/Arterial O2 Gradient 185.2 mmHg; Base Excess ABG 6.7 mEq/l (+/-2.0); Fractional Inspired Oxygen 60 %; HCO3 ABG 34.7 mEq/l (22.0-26.0); Oxygen Content ABG 22.9 %vol (16.0-22.0); Oxygen Saturation ABG 99.1 % (95.0-100.0); Oxyhemoglobin 98.1 % THb (90.0-100.0); PO2 ABG 173.7 mmHg (80.0-100.0); PO2 FiO2 Ratio Arterial Blood 2.89 %; Total Hemoglobin 16.4 g/dL (12.0-18.0); pH ABG 7.361 (7.350-7.450)
[2021-12-29 20:32] LABS: PCO2 ABG 62.6 mmHg (35.0-45.0)
[2021-12-29 20:33] LABS: Modified Allen's Test Pass; Site Drawn RIGHT RADIAL
[2021-12-29 20:34] LABS: Device SIMPLE MASK
--- NOTE | 2021-12-29 21:02 | PC.NURSE ---
This pt was found to have a pneumothorax after xray of chest. EDP Dr. Franz states he will insert chest tube. Supplies gathered per EDP request. Two RN's and one windows server support technician present to assist with procedure. Pt tolerates procedure well. Chest tube in place to suction at this time.
--- NOTE | 2021-12-29 21:28 | PC.NURSE ---
Per ED Registration, pt's name incorrectly spelled. new arm band and stickers provided.
--- NOTE | 2021-12-29 21:31 | ED.SOB ---
HPI - SOB/Dyspnea General Chief Complaint: Shortness of Breath/Dyspnea Stated Complaint: sob hx of copd Time Seen by Provider: 12/29/21 19:56 Source: patient History of Present Illness HPI Narrative: Patient presents with shortness of breath. Reports a history of COPD. He was seen approximately 3 weeks ago offered admission and attempted manage symptoms at home. Since that time he has been having increased shortness of breath and cough. Today it was even more severe so he came to the ER for evaluation. Patient reports he is having a hard time getting enough air and feels like a mechanical problem Related Data Home Medications Medication Instructions Recorded Confirmed albuterol sulfate 1 inh INHALATION QID PRN 12/29/21 [id number] 1 inh INHALATION DAILY 12/29/21 [Trelegy Ellipta] Allergies Allergy/AdvReac Type Severity Reaction Status Date / Time No Known Allergies Allergy Verified 12/29/21 20:04 Review of Systems Review of Systems: CONSTITUTIONAL: Denies fever, chills, or sweats. EYES: Denies visual changes, redness, or discharge. ENT: Denies rhinorrhea, congestion, sore throat, or otalgia. CARDIOVASCULAR: Denies chest pain, palpitations, or edema. RESPIRATORY: Reports shortness of breath and cough GASTROINTESTINAL: Denies abdominal pain, nausea, vomiting, or diarrhea. GENITOURINARY: Denies dysuria or hematuria. SKIN: Denies rash or itching. MUSCULOSKELETAL: Denies back pain, joint pain, or myalgia. NEUROLOGIC: Denies headache, numbness, dizziness, or weakness. PSYCHIATRIC: Denies anxiety or depression. All systems reviewed & are unremarkable except as noted in HPI and below [facility] Past Medical History Medical History (Updated 12/29/21 @ 21:47 by Vidal Franz MD) COPD (chronic obstructive pulmonary disease) Social History Social History (Updated 12/29/21 @ 21:38 by Vidal Franz MD) Living arrangements: with family Exam Narrative: GENERAL: Frail appearing in respiratory distress HEAD: Normocephalic, atraumatic. EYES: PERRLA and EOMI. ENT: Nares clear, no rhinorrhea or epistaxis. Mucous membranes moist. NECK: Supple. No masses. No JVD CHEST: Patient with increased work of breathing diminished aeration in all lung [place] slightly more aeration at the left lung base accessory muscle use HEART: Regular tachycardia. No murmur heard. Normal peripheral pulses. ABDOMEN: Soft, nontender, nondistended, normal active bowel sounds. EXTREMITIES: Normal range of motion. No edema. SKIN: Warm, dry, no rash. NEURO: No focal deficits. Alert and oriented x3. PSYCH: Normal mood and affect. Course Reevaluation(s) Reevaluation #1: Patient feels much improved after chest tube patient is comfortable inpatient plan. Discussed chest tube with general surgery who will assist inpatient team with management Date: 12/29/21 Time: 21:40 Vital Signs Vital signs: Vital Signs Temperature 35.9 C L 12/29/21 19:53 Pulse Rate 124 H 12/29/21 19:53 Respiratory Rate 18 12/29/21 19:53 Pulse Oximetry 100 12/29/21 19:53 Temperature 35.9 C L 12/29/21 19:53 Pulse Rate 119 H 12/29/21 21:09 Respiratory Rate 18 12/29/21 21:09 Blood Pressure 122/94 H 12/29/21 21:09 Pulse Oximetry 100 12/29/21 21:09 Procedures Chest Tube Chest Tube 1: Chest Tube Date: 12/29/21 Chest Tube Time: 21:20 Chest Tube Location: right, anterior axillary line and fifth interspace Tube Type: cook cath Chest Tube Prep: Yes betadine prep Anesthetic: lidocaine 1% and with epi Amount of anesthesia used (mL): 4 Incision Made With: #11 blade Procedure: seldinger technique Post Procedure: sutured to skin, sterile dressing applied and connected to Pluero Vac Tube Drainage: powell of air Post Procedure CXR?: Yes Post Procedure: post CXR reviewed, placement appropriate and pneumo resolved Patient Tolerated Procedure: Yes
[2021-12-29 21:50] LABS: Alveolar/Arterial O2 Gradient 52.7 mmHg; Base Excess ABG 6.2 mEq/l (+/-2.0); Fractional Inspired Oxygen 28 %; HCO3 ABG 33.1 mEq/l (22.0-26.0); Oxygen Content ABG 21.3 %vol (16.0-22.0); Oxygen Saturation ABG 95.5 % (95.0-100.0); Oxyhemoglobin 95.2 % THb (90.0-100.0); PCO2 ABG 56.4 mmHg (35.0-45.0); PO2 ABG 80.4 mmHg (80.0-100.0); PO2 FiO2 Ratio Arterial Blood 2.87 %; Total Hemoglobin 15.9 g/dL (12.0-18.0); pH ABG 7.387 (7.350-7.450)
[2021-12-29 21:51] LABS: Device NASAL CANNULA; Modified Allen's Test Pass; Site Drawn RIGHT RADIAL
--- NOTE | 2021-12-29 21:53 | PM.IMHP ---
H&P: HPI History of Present Illness Date/Time: 12/29/21 21:53 Chief Complaint: Shortness of breath. Narrative: This is a 56-year-old male with past medical history significant for count for COPD/emphysema, former smoker. Patient presents to the emergency room with severe respiratory distress according to patient he had been to the emergency room about a month ago or so and decided to go home and manages symptoms at home however patient had progressive declined and deconditioning is staying in bed most of the day with severe distress upon standing and with ambulation in doing his activities he has been bed bound and unable to fix his own meals has some help from his son who lives at home with him patient noted weight loss as well as a result of all of these, patient having chills, tremors, no cough or sputum production however. Today patient decided to come to the emergency room due to severe respiratory distress and pain he was found to have acute tension pneumothorax of the right side patient is now status post chest tube placement. Patient is being admitted for further evaluation, management and treatment. Review of Systems Review of Systems: SHORTNESS OF BREATH, DECREASED STAMINA, FATIGUE, WEIGHT LOSS. Constitutional: Constitutional: Denies chills, Reports fatigue, Denies fever(s), Reports lethargy, Denies night sweats, Reports poor appetite and Reports weakness Eyes: Eyes: Denies change in vision ENT: Denies dysphagia, Denies nasal congestion, Denies nasal discharge, Denies nasal obstruction and Denies odynophagia Cardiovascular: Cardiovascular: Denies pedal edema, Denies irregular heart rhythm, Denies claudication, Denies leg edema, Denies radiating jaw, neck or arm pain, Denies palpitations and Denies orthopnea Respiratory: Respiratory: Denies change in phlegm color, Reports cough, Denies excessive phlegm production, Reports dyspnea, Reports dyspnea on exertion and Denies wheezing Gastrointestinal: Gastrointestinal: Denies abdominal pain, Denies dyspepsia, Denies heartburn, Denies nausea and Denies vomiting Genitourinary: Genitourinary: Denies dysuria and Denies flank pain Musculoskeletal: Musculoskeletal: Reports muscle weakness Integumentary/Breasts: Skin/Breast: Denies rash Neurologic: Denies focal weakness and Denies Sensory deficit (Neuro) Psychiatric: Psychiatric: Reports no additional psychiatric complaints and Reports as per HPI Endocrine: Endocrine: Denies cold intolerance, Denies heat intolerance, Denies polyphagia, Denies polydipsia, Denies polyuria and Denies palpitations Hematologic/Lymphatic: Hematologic/Lymphatic: Reports no additional hematologic/lymphatic complaints and Reports as per HPI Allergic/Immunologic: Allergic/Immunologic: Reports no additional allergic/immunologic complaints and Reports as per HPI [facility] Past Medical History Medical History (Updated 12/30/21 @ 02:37 by Lio Dillon MD) COPD (chronic obstructive pulmonary disease) Social History Social History (Updated 12/29/21 @ 21:38 by Vidal Franz MD) Smoking packs per day: 1 Smoking cigarettes per day: 20.0 Years smoked: 30 Smoking pack-years: 30.00 Smoking status: Former smoker Alcohol intake: never Substance use: never Living arrangements: with family Spiritual care concerns: No Meds Home Medications and Allergies Home Medications Medication Instructions Recorded Confirmed Type albuterol sulfate 1 inh INHALATION QID PRN 12/29/21 12/29/21 History [id number]-[id number] 1 inh INHALATION DAILY 12/29/21 12/29/21 History [Vincent Powell] Allergies Allergy/AdvReac Type Severity Reaction Status Date / Time No Known Allergies Allergy Verified 12/29/21 20:04 Vital Signs Vital Signs - 24 hr 12/29/21 19:53 12/29/21 20:08 12/29/21 20:10 Temperature 96.7 F L Pulse Rate 124 H 127 H Respiratory Rate 18 16 Blood Pressure Pulse Oximetry 100 99 12/29/21 21:09 Temper
--- NOTE | 2021-12-29 23:00 | ADMGEN ---
This patient, Manny Munoz, was admitted to IMU Room 211-01. Patient/family oriented to hospital policies and general routines including ID bracelet, bed and alarms, visiting hours, pain management, procedures, bathroom and other care routines, personal items, smoking policy, room service/diet, and visiting hours. Information on how to activate the Rapid Response Team has been discussed. Patient/Family are encouraged to report perceived risks to care and to ask questions if they do not understand what they are told or what they should do.
[2021-12-29] MEDS: SODIUM CHLORIDE 0.9% IV 1,000 ML 125 ML IV CONT (23:11)
[2021-12-29] MEDS: HYDROmorphone HCL INJ (*CRX) 1 MG/ML SYR IV PUSH (23:43)
[2021-12-30] VITALS (28 sets, daily range): BP systolic 96–132; BP diastolic 47–89; PULSE 67–114; RESP 18–22; TEMP 35.6–36.6; O2SAT 95–100; BMI 14.8
[2021-12-30] MEDS: IPRATROPIUM BR 0.02% INH SOLN 0.5 MG/2.5 ML VIAL INHALATION ×5 (04:45→20:39)
[2021-12-30] MEDS: ALBUTEROL SULFATE NEB 2.5 MG/0.5 ML INH INHALATION ×5 (04:46→20:38)
[2021-12-30] MEDS: HYDROmorphone HCL INJ (*CRX) 1 MG/ML SYR IV PUSH (05:26)
[2021-12-30] MEDS: SODIUM CHLORIDE 0.9% IV 1,000 ML 125 ML IV CONT ×3 (07:20→23:30)
[2021-12-30] MEDS: FLUTICASONE/UMECLIDIN/VILANTER 200-62.5-25 MCG ELLIPTA 1 PUFF INHALATION (08:27)
--- NOTE | 2021-12-30 09:00 | PM.IMPN ---
Progress Note: A&P Assessment and Plan (1) Spontaneous tension pneumothorax: Code(s): J93.0 - Spontaneous tension pneumothorax Status: Acute Assessment and Plan: Reports progressive shortness of breath Cxray: large right Pneumo with mediastinal shift to the left General surgery consulted thank you for your help Chest tube placed Trend drainage Daily chest xray (2) COPD (chronic obstructive pulmonary disease): Code(s): J44.9 - Chronic obstructive pulmonary disease, unspecified Status: Acute Assessment and Plan: pH 7.387, pCO2 56.4, pO2 80.4, HCO3 33.1, O2 saturation 95.5 Currently on 2LNC Continue home trelegy ellipta 1 puff daily Breathing treatments Pulmonology consult Supplemental oxygen, wean to maintain saturations >90% (3) Muscular deconditioning: Code(s): R29.898 - Other symptoms and signs involving the musculoskeletal system Status: Acute Assessment and Plan: Related to current illness PT/OT Time Spent With Patient Time with patient: Greater than 35 minutes Subjective Date/time seen: 12/30/21899 Interval history: Date/Time: 12/29/21 21:53 Narrative: This is a 56-year-old male with past medical history significant for count for COPD/emphysema, former smoker. Patient presents to the emergency room with severe respiratory distress according to patient he had been to the emergency room about a month ago or so and decided to go home and manages symptoms at home however patient had progressive declined and deconditioning is staying in bed most of the day with severe distress upon standing and with ambulation in doing his activities he has been bed bound and unable to fix his own meals has some help from his son who lives at home with him patient noted weight loss as well as a result of all of these, patient having chills, tremors, no cough or sputum production however. Today patient decided to come to the emergency room due to severe respiratory distress and pain he was found to have acute tension pneumothorax of the right side patient is now status post chest tube placement. Patient is being admitted for further evaluation, management and treatment. Date/Time 12/30/21 09 Patient is lying in bed. Patient states that he does use home O2 with room air at rest, 4 L with activity, 3 L with sleep. Patient has been wearing about 5 L at home which has been giving him a saturation of 94-95%. Patient also is eating and is excited about eating. He stated that he would take about an hour and half to complete a meal at home his he would become very short of breath. He also admits to having shortness of breath with activity. He does have pain in his insertion site which he states is a 1/10. Patient denies any sweats, fevers, chills. He also denies any chest pain, abdominal pain, nausea, vomiting Did talk to [facility] who stated that they are at capacity, and were not accepting any transfers at this time. Collette from [facility] stated that there was some availability in there step down and she was going to look into it. Review of Systems Review of Systems: All systems reviewed & are unremarkable except as noted in HPI and below Exam Const: General: cooperative, comfortable, no acute distress, well developed, alert, awake, Physically active, in distress mild and ill appearing chronically Nutritional Appearance: cachectic Orientation/consciousness: patient oriented x3 HENMT: Head: normal to inspection, normocephalic, atraumatic and other (BITEMPORAL MUSCLE WASTING) Ears: hearing grossly normal bilaterally General nose exam: Normal external nose present and Other nasal findings present (NASAL CANNULA IN PLACE) Face and sinus: normal facial exam Mouth: Yes Normal oral and palatal mucosa present Eyes: General: appearance normal, both eyes and all related structures Alignment and Position: alignment normal Sclera: sclerae no
[2021-12-30] MEDS: traMADol HCL (*CRX) 50 MG TABLET PO ×2 (09:24→18:08)
--- NOTE | 2021-12-30 11:03 | PM.CNGS ---
Assessment and Plan Assessment and plan (1) Spontaneous tension pneumothorax: Code(s): J93.0 - Spontaneous tension pneumothorax Status: Acute Assessment and Plan: Large spontaneous right pneumothorax status post chest tube placement in the ED yesterday. Chest tube in position. Air leak noted. Continue chest tube to -20 cm of suction today. Will repeat chest x-ray again tomorrow morning. Encouraged IS use. Thank you for allowing us to see the patient in consultation and we will continue to follow along with you. (2) COPD (chronic obstructive pulmonary disease): Code(s): J44.9 - Chronic obstructive pulmonary disease, unspecified Status: Acute Assessment and Plan: Recommended to call his blocker automatic and reschedule his PET scan, which was scheduled for tomorrow. Would also recommend following up with pulmonology after discharge. Discussed this with the patient's son as well. I also stressed the importance of continuing his cessation with smoking after discharge. (3) Muscular deconditioning: Code(s): R29.898 - Other symptoms and signs involving the musculoskeletal system Status: Acute Assessment and Plan: PT and OT ordered. (4) Malnourished: Code(s): E46 - Unspecified protein-calorie malnutrition Status: Acute Assessment and Plan: Dietitian consulted to evaluate patient and help at appropriate supplements. Additional Plan Thank you for allowing us to see the patient in consultation and we will continue to follow along with you. I also called his son, Luis, and discussed the plan of care and answered all questions per the patient's request. History of Present Illness Consult details Consult date: 12/30/21 Reason for consult: chest tube (Right pneumothorax status post chest tube placement in ER) Requesting physician: Vidal Franz MD Narrative: This is a 56-year-old male with COPD and chronic respiratory failure who presented to the emergency department yesterday with complaints of worsening shortness of breath and right-sided chest pain. The patient was seen in our ER on 11/06/2021 with complaints of shortness of breath and an increase in his oxygen requirements at home. He was prescribed azithromycin and a Medrol Dosepak and was sent home. The patient reports having symptoms of worsening shortness of breath over the past month. He also has noticed right-sided chest pain that has progressively worsened but he cannot recall for how long. He reports typically using 3 L of O2 at night and 4 L of O2 with activity, but no oxygen at rest. He reports over the last few weeks, he has required oxygen at all times throughout the day and night. He reports not being able to eat over the past few weeks due to the chest pain and shortness of breath making it difficult to even raise his arm to feed himself. He has reportedly lost weight due to poor oral intake. Due to his worsening symptoms, he presented to the ER for evaluation. In the ER he was found to have a large right pneumothorax with mediastinal shift to the left. Subsequently, a right-sided chest tube was placed by the ED physician. Repeat chest x-ray shows expansion of the right lung. He has been admitted in the IMU to the hospitalist. Our service has been consulted for chest tube management. The patient is now seen on the floor. He reports a significant improvement in his shortness of breath since having the chest tube placed. He is still having right-sided chest pain, but also feels this has improved. He was able to eat this morning without any issues. No other complaints at this time. He does report seeing a blocker automatic at [place] and was working towards potentially being put on a lung transplant list. He reportedly quit smoking cigarettes 51 days ago to work towards trying to get a lung transplant. He denies any recent fall or injury to his chest. He denies ever having a pneumothorax in the past. R
--- NOTE | 2021-12-30 12:14 | PM.CNPUL ---
Assessment and Plan Assessment and plan (1) Secondary spontaneous pneumothorax: Code(s): J93.12 - Secondary spontaneous pneumothorax Status: Acute Assessment and Plan: Patient with a history of severe centrilobular and paraseptal bulla on a CT scan report from [facility] on 11/11/2021 and history of being a carrier for alpha-1 antitrypsin deficiency and now with a pneumothorax. Patient has his symptoms of a pneumothorax for the last 4 weeks and presented to the emergency room on 12/30/2021 and found to have a large right pneumothorax with shift of the mediastinal to the left. He was hemodynamically stable but hypoxemic. The emergency department placed a Cook catheter emergently with partial resolution of his pneumothorax. Clinically the patient is much improved. I will repeat a CT scan of the chest to confirm his emphysema as well as assess his underlying multiple nodules. I will increase his oxygen in an attempt to help resort his pneumothorax. General surgery has been consulted to manage his chest tube. I recommend transferring the patient to a facility that has a thoracic surgery team so that the patient can be evaluated for a definitive procedure such as talc pleurodesis and/or VATS procedure. Of note the patient has a history of multiple pulmonary nodules including enlarging nodules in the right upper lobe, right lower lobe and left lower lobe and was scheduled for a CT PET on 12/31/2021 at our hospital. This will not be performed as an inpatient here. Discussed with Hospitalist Robe Dalton, will follow with you. (2) COPD (chronic obstructive pulmonary disease): Code(s): J44.9 - Chronic obstructive pulmonary disease, unspecified Status: Acute Assessment and Plan: Patient is maintained on trelegy inhaler 200-62.5-25 at 1 puff q.day and I will continue this now. There is no evidence number of pneumonia, COPD exacerbation or tracheobronchitis at this time. I do not feel a need for systemic steroids or antibiotics. History of Present Illness History of Present Illness Consult date: 12/30/21 Reason for consult: COPD and pneumothorax Chief complaint: pneomothorax Narrative: 12/30/2021: This is a new pulmonary consult for COPD with a secondary spontaneous pneumothorax. History obtained from the patient as I have no outside medical records. 56-year-old male with a history of alpha 1 antitrypsin deficiency noted by genetic testing with low normal levels, COPD with hypoxic respiratory failure on room air at rest, 4 L with ambulation and 3 L at night and multiple lung nodules who is followed at [facility] pulmonology. The patient states that the tank driver is appealing the decision not to treat his alpha 1 anti trypsin based on his levels that are a few points higher than what would qualify him for treatment. Patient is maintained on trelegy inhaler and had a CT scan on 11/11/2021 at [facility]. the patient was able to pull these results up on his phone and this was a CT scan ordered by no else in [place] and compared to CTs on 02/26/21 and 03/26/2020. This dictation states there is severe centrilobular and paraseptal bulla that her stable. There is a right upper lobe slightly larger nodule at 11.3 mm. There is a right lower lobe nodule minimally increased from 8.5 mm to 9.3 mm. And there is a left lower lobe nodule increased from 11.6 mm to 15 mm. In addition there are many stable nodules of 8.2 mm right upper lobe, 10 mm right upper lobe, a new right middle lobe density at 43 mm, 6.6 mm anterior right upper lobe nodule 2 left lower lobe nodules between 3 and 5 mm, diminished linear density left upper lobe, a 4 mm left upper lobe nodule and a 3 mm left upper no nodule. The patient was scheduled to have a CT PET on 12/31 21 to assess these nodules. Approximately 4 weeks ago the patient noted some right sided chest pain, decreased
[2021-12-30 15:24] LABS: EDCOVIDSCREEN Negative (Negative)
[2021-12-31] VITALS (22 sets, daily range): BP systolic 90–111; BP diastolic 55–67; PULSE 65–101; RESP 15–20; TEMP 36.3–36.6; O2SAT 97–100
[2021-12-31] MEDS: IPRATROPIUM BR 0.02% INH SOLN 0.5 MG/2.5 ML VIAL INHALATION ×3 (00:17→08:59)
[2021-12-31] MEDS: ALBUTEROL SULFATE NEB 2.5 MG/0.5 ML INH INHALATION ×3 (00:17→08:59)
[2021-12-31 05:15] LABS: Basophils Percent Auto 0.2 % (0.2-1.2); Eosinophils Absolute Auto 0.1 K/mm3 (0-0.3); Eosinophils Percent Auto 0.8 % (0-4.4); Hematocrit 39.1 % (42.0-52.0); Hemoglobin 12.6 g/dL (14.0-18.0); Immature Granulocyte Absolute 0.04 K/mm3 (0.00-0.031); Immature Granulocyte Percent A 0.4 % (0-0.5); Lymphocytes Absolute Auto 1.39 K/mm3 (0.9-3.2); Lymphocytes Percent Auto 14.1 % (18.3-44.2); Mean Corpuscular HGB Conc 32.2 g/dl (32-36); Mean Corpuscular Hemoglobin 31.3 pg (26-34); Mean Corpuscular Volume 97.3 fl (80-100); Mean Platelet Volume 9.6 fl (7.4-10.4); Monocytes Absolute Auto 0.9 K/mm3 (0.1-0.6); Monocytes Percent Auto 9.2 % (2.6-8.5); Neutrophils Absolute Auto 7.4 K/mm3 (1.3-6.7); Neutrophils Percent Auto 75.3 % (45.5-73.1); Platelet Count Result 148 k/mm3 (150-375); Red Blood Count 4.02 M/mm3 (4.6-6.20); Red Cell Distribution Width 11.5 % (11.5-14.5); White Blood Count 9.8 K/mm3 (4.5-10.0)
[2021-12-31 05:28] LABS: Alanine Aminotransferase 22 U/L (4-50); Albumin Level 3.2 g/dL (3.5-5.1); Alkaline Phosphatase 49 U/L (38-126); Anion Gap 3 mmol/L (8-16); Aspartate Amino Transferase 29 U/L (17-59); Bilirubin,Total 0.6 mg/dL (0.2-1.3); Blood Urea Nitrogen 15 mg/dL (9-20); Calcium 7.8 mg/dL (8.4-10.2); Carbon Dioxide 32 mmol/L (22-30); Chloride 99 mmol/L (98-107); Estimated CRCL calculation 80 ml/min; Estimated Glomerular Filt Rate > 60; Glucose 75 mg/dL (65-110); Magnesium 1.8 mg/dL (1.6-2.3); Sodium 134 mmol/L (137-145)
[2021-12-31] MEDS: FLUTICASONE/UMECLIDIN/VILANTER 200-62.5-25 MCG ELLIPTA 1 PUFF INHALATION (08:59)
[2021-12-31] MEDS: traMADol HCL (*CRX) 50 MG TABLET PO (08:59)
[2021-12-31] MEDS: SODIUM CHLORIDE 0.9% IV 1,000 ML 125 ML IV CONT (09:02)
--- NOTE | 2021-12-31 09:30 | PM.IMPN ---
Progress Note: A&P Assessment and Plan (1) Spontaneous tension pneumothorax: Code(s): J93.0 - Spontaneous tension pneumothorax Status: Acute Assessment and Plan: Reports progressive shortness of breath Cxray: large right Pneumo with mediastinal shift to the left General surgery consulted thank you for your help Chest tube placed, GS to manage Trend drainage Daily chest xray- worsened right pneumo with chest tube placed Working on transfer Talked to Ramila several times about current findings. Repeat chest xray was done, and did so working pneumo. Radiology also called about possible air under the diaphragm. (2) COPD (chronic obstructive pulmonary disease): Code(s): J44.9 - Chronic obstructive pulmonary disease, unspecified Status: Acute Assessment and Plan: pH 7.387, pCO2 56.4, pO2 80.4, HCO3 33.1, O2 saturation 95.5 Currently on 2LNC Continue home trelegy ellipta 1 puff daily Breathing treatments, DC'd by Pulm Pulmonology consult Supplemental oxygen, wean to maintain saturations >90% Not in an acute exacerbation (3) Muscular deconditioning: Code(s): R29.898 - Other symptoms and signs involving the musculoskeletal system Status: Acute Assessment and Plan: Related to current illness PT/OT Time Spent With Patient Time with patient: Greater than 35 minutes Subjective Date/time seen: 12/31/21 09:30 Interval history: Date/Time: 12/29/21 21:53 Narrative: This is a 56-year-old male with past medical history significant for count for COPD/emphysema, former smoker. Patient presents to the emergency room with severe respiratory distress according to patient he had been to the emergency room about a month ago or so and decided to go home and manages symptoms at home however patient had progressive declined and deconditioning is staying in bed most of the day with severe distress upon standing and with ambulation in doing his activities he has been bed bound and unable to fix his own meals has some help from his son who lives at home with him patient noted weight loss as well as a result of all of these, patient having chills, tremors, no cough or sputum production however. Today patient decided to come to the emergency room due to severe respiratory distress and pain he was found to have acute tension pneumothorax of the right side patient is now status post chest tube placement. Patient is being admitted for further evaluation, management and treatment. Date/Time 12/30/21899 Patient is lying in bed. Patient states that he does use home O2 with room air at rest, 4 L with activity, 3 L with sleep. Patient has been wearing about 5 L at home which has been giving him a saturation of 94-95%. Patient also is eating and is excited about eating. He stated that he would take about an hour and half to complete a meal at home his he would become very short of breath. He also admits to having shortness of breath with activity. He does have pain in his insertion site which he states is a 1/10. Patient denies any sweats, fevers, chills. He also denies any chest pain, abdominal pain, nausea, vomiting Did talk to Marta vealz[facility] who stated that they are at capacity, and were not accepting any transfers at this time. Collette from [facility] stated that there was some availability in there step down and she was going to look into it. Date/Time 12/31/21929 Patient seems to be doing about the same today. He denies any chest pain however he is complaining of shortness of breath. Chest x-ray did indicate a little bit worsening of the pneumothorax. Patient also has crepitus and the air leak looks to have been decreased. He denies any nausea, vomiting, diarrhea, constipation. Patient is weak and fatigued. Patient also stated that he has increased shortness of breath especially with activity. I did discuss the case again with Dr. Carrasco and will call fo
--- NOTE | 2021-12-31 10:02 | PM.PNPUL ---
Progress Note: A&P Assessment and Plan (1) Secondary spontaneous pneumothorax: Code(s): J93.12 - Secondary spontaneous pneumothorax Status: Acute Assessment and Plan: Patient with a history of severe centrilobular and paraseptal bulla on a CT scan report from [facility] on 11/11/2021 and history of being a carrier for alpha-1 antitrypsin deficiency and now with a pneumothorax. Patient has his symptoms of a pneumothorax for the last 4 weeks and presented to the emergency room on 12/30/2021 and found to have a large right pneumothorax with shift of the mediastinal to the left. He was hemodynamically stable but hypoxemic. The emergency department placed a Cook catheter emergently with partial resolution of his pneumothorax. Clinically the patient is much improved. I will repeat a CT scan of the chest to confirm his emphysema as well as assess his underlying multiple nodules. I will increase his oxygen in an attempt to help resort his pneumothorax. General surgery has been consulted to manage his chest tube. I recommend transferring the patient to a facility that has a thoracic surgery team so that the patient can be evaluated for a definitive procedure such as talc pleurodesis and/or VATS procedure. Of note the patient has a history of multiple pulmonary nodules including enlarging nodules in the right upper lobe, right lower lobe and left lower lobe and was scheduled for a CT PET on 12/31/2021 at our hospital. This will not be performed as an inpatient here. 12/31 Patient is stable and his respiratory status. He no longer has any rest shortness of breath and his dyspnea on exertion around the room is improved. Cook catheter remains in place at 20 suction with an intermittent air leak. Currently is at 3 L nasal cannula saturations 100%. Chest x-ray shows minimally worsened right apical pneumothorax. No wheezes on exam. recommend transfer to facility with thoracic surgery team. Discussed with Hospitalist Robe Dalton. Will follow with you. (2) COPD (chronic obstructive pulmonary disease): Code(s): J44.9 - Chronic obstructive pulmonary disease, unspecified Status: Acute Assessment and Plan: 12/30 Patient is maintained on trelegy inhaler 200-62.5-25 at 1 puff q.day and I will continue this now. There is no evidence number of pneumonia, COPD exacerbation or tracheobronchitis at this time. I do not feel a need for systemic steroids or antibiotics. 12/31 Patient states his respiratory status continues to improve oxygenation is stable, no wheezing, no evidence of a COPD exacerbation. Continue trelegy 200-62.5-25. Subjective Date/time seen: 12/31/21 10:02 Interval history: 12/30/2021: This is a new pulmonary consult for COPD with a secondary spontaneous pneumothorax. History obtained from the patient as I have no outside medical records. 56-year-old male with a history of alpha 1 antitrypsin deficiency noted by genetic testing with low normal levels, COPD with hypoxic respiratory failure on room air at rest, 4 L with ambulation and 3 L at night and multiple lung nodules who is followed at [facility] pulmonology. 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 Patient is maintained on trelegy inhaler and had a CT scan on 11/11/2021 at [facility]. The patient was able to pull these results up on his phone and this was a CT scan ordered by Dr Isma Ng and compared to CTs on 02/26/21 and 03/26/2020. This dictation states there is severe centrilobular and paraseptal bulla that is stable. There is a right upper lobe slightly larger nodule at 11.3 mm. There is a right lower lobe nodule minimally increased from 8.5 mm to 9.3 mm, there is a left lower lobe nodule increased from 11.6 mm to
--- NOTE | 2021-12-31 12:51 | PM.PNGS ---
Progress Note: A&P Assessment and Plan (1) Spontaneous tension pneumothorax: Code(s): J93.0 - Spontaneous tension pneumothorax Status: Acute Assessment and Plan: Both chest x-rays reviewed this morning, slight interval increase in pneumothorax. Chest tube remains in the same position. He has a persistent pleural leak. Continue chest tube to wall suction for now. If patient becomes more symptomatic or is unable to be transferred to thoracic surgery in the near future, then we may need to consider exchanging his chest tube for a larger-sized tube that can be better positioned. Repeat chest x-ray tomorrow morning unless any changes sooner. (2) COPD (chronic obstructive pulmonary disease): Code(s): J44.9 - Chronic obstructive pulmonary disease, unspecified Status: Acute Assessment and Plan: Pulmonology following and recommending transfer to a tertiary care facility for thoracic surgery evaluation. (3) Malnourished: Code(s): E46 - Unspecified protein-calorie malnutrition Status: Acute Additional Plan I have discussed the patient's case and plan of care with Dr. Cottrell. Subjective Subjective Date/Time Seen: 12/31/21 08:31 Patient reports: no new complaints Interval history: Patient seen and examined earlier this morning. At that time, he had no new complaints and reports feeling about the same as he did yesterday. Still has some SOB at rest, but improved from admission. Chest xray showed chest tube in position and still small pneumothorax. Hospitalist called me later this morning after I evaluated the patient, saying the patient became more short of breath and they were ordering a repeat chest x-ray to re-evaluate. Review of Systems Review of Systems: All systems reviewed & are unremarkable except as noted in HPI and below Exam Const: General: comfortable, no acute distress and alert Nutritional Appearance: malnourished Chest: Other: Right-sided chest tube on suction with dressing dry and intact, air leak noted Resp: Effort & Inspection: not labored and tachypneic Auscultation: wheezes expiratory wheezes and upper bilaterally and diminished lung sounds diffuse (Diminished throughout) Cardio: Rate: regular rate Rhythm: regular rhythm Psych: Insight: Good insight present (Psych) Judgement: Good judgement present (Psych) Objective Data Vital Signs Vital Signs: Vital Signs - 24 hr 12/30/21 12:55 12/30/21 14:00 03/07/22 16:00 Temperature 96.5 F L Pulse Rate 110 H 89 73 Respiratory Rate 18 Blood Pressure 96/55 L Pulse Oximetry 97 12/30/21 16:20 12/30/21 16:31 12/30/21 18:00 Temperature Pulse Rate 98 97 79 Respiratory Rate Blood Pressure Pulse Oximetry 12/30/21 19:54 12/30/21 20:00 12/30/21 20:40 Temperature 97.8 F Pulse Rate 67 97 97 Respiratory Rate 20 20 Blood Pressure 99/47 L Pulse Oximetry 100 97 12/30/21 20:41 12/30/21 20:46 12/30/21 22:00 Temperature Pulse Rate 97 67 Respiratory Rate Blood Pressure Pulse Oximetry 97 12/30/21 23:17 12/31/21 00:00 12/31/21 00:18 Temperature 97.8 F Pulse Rate 82 66 69 Respiratory Rate 18 18 Blood Pressure 101/57 L Pulse Oximetry 100 100 12/31/21 00:27 12/31/21 02:00 12/31/21 04:00 Temperature 97.8 F Pulse Rate 66 66 65 Respiratory Rate 20 Blood Pressure 108/66 Pulse Oximetry 100 12/31/21 04:43 12/31/21 04:51 12/31/21 06:00 Temperature Pulse Rate 66 72 70 Respiratory Rate Blood Pressure Pulse Oximetry 12/31/21 08:00 12/31/21 08:25 12/31/21 08:55 Temperature 97.3 F L Pulse Rate 92 67 89 Respiratory Rate 16 16 Blood Pressure 90/55 L Pulse Oximetry 100 97 12/31/21 09:04 12/31/21 10:00 12/31/21 11:49 Temperature 97.3 F L Pulse Rate 79 101 H 87 Respiratory Rate 16 18 Blood Pressure 111/63 Pulse Oximetry 97 97 Intake/Output Intake/Output: Intake & Output 12/28/21 12/29/21 12/30/21 12/31/21
[2022-01-01] VITALS (18 sets, daily range): BP systolic 94–107; BP diastolic 65–72; PULSE 76–100; RESP 15–20; TEMP 36.3–37; O2SAT 97–100
[2022-01-01 05:09] LABS: Basophils Percent Auto 0.4 % (0.2-1.2); Eosinophils Absolute Auto 0.4 K/mm3 (0-0.3); Eosinophils Percent Auto 4.9 % (0-4.4); Hematocrit 40.7 % (42.0-52.0); Hemoglobin 12.9 g/dL (14.0-18.0); Immature Granulocyte Absolute 0.03 K/mm3 (0.00-0.031); Immature Granulocyte Percent A 0.4 % (0-0.5); Lymphocytes Absolute Auto 1.05 K/mm3 (0.9-3.2); Mean Corpuscular HGB Conc 31.7 g/dl (32-36); Mean Corpuscular Hemoglobin 31.5 pg (26-34); Mean Corpuscular Volume 99.3 fl (80-100); Mean Platelet Volume 9.7 fl (7.4-10.4); Monocytes Absolute Auto 0.8 K/mm3 (0.1-0.6); Monocytes Percent Auto 10.5 % (2.6-8.5); Neutrophils Absolute Auto 5.3 K/mm3 (1.3-6.7); Neutrophils Percent Auto 69.8 % (45.5-73.1); Platelet Count Result 154 k/mm3 (150-375); Red Cell Distribution Width 11.8 % (11.5-14.5); White Blood Count 7.5 K/mm3 (4.5-10.0)
[2022-01-01 05:28] LABS: Alanine Aminotransferase 24 U/L (4-50); Albumin Level 3.2 g/dL (3.5-5.1); Alkaline Phosphatase 56 U/L (38-126); Anion Gap -1 mmol/L (8-16); Aspartate Amino Transferase 28 U/L (17-59); Bilirubin,Total 0.6 mg/dL (0.2-1.3); Blood Urea Nitrogen 8 mg/dL (9-20); Calcium 8.2 mg/dL (8.4-10.2); Carbon Dioxide 38 mmol/L (22-30); Chloride 98 mmol/L (98-107); Estimated CRCL calculation 107 ml/min; Estimated Glomerular Filt Rate > 60; Glucose 105 mg/dL (65-110); Sodium 135 mmol/L (137-145)
[2022-01-01] MEDS: traMADol HCL (*CRX) 50 MG TABLET PO (05:43)
--- NOTE | 2022-01-01 08:00 | PM.IMPN ---
Progress Note: A&P Assessment and Plan (1) Spontaneous tension pneumothorax: Code(s): J93.0 - Spontaneous tension pneumothorax Status: Acute Assessment and Plan: Reports progressive shortness of breath Cxray: large right Pneumo with mediastinal shift to the left General surgery consulted thank you for your help Chest tube placed, GS to manage Trend drainage Daily chest xray- Small right hydropneumothorax with interval improvement. Right-sided chest tube noted. Working on transfer (2) COPD (chronic obstructive pulmonary disease): Code(s): J44.9 - Chronic obstructive pulmonary disease, unspecified Status: Acute Assessment and Plan: pH 7.387, pCO2 56.4, pO2 80.4, HCO3 33.1, O2 saturation 95.5 Currently on 4LNC Continue home trelegy ellipta 1 puff daily Breathing treatments, DC'd by Pulm Pulmonology consult Supplemental oxygen, wean to maintain saturations >90% Not in an acute exacerbation (3) Muscular deconditioning: Code(s): R29.898 - Other symptoms and signs involving the musculoskeletal system Status: Acute Assessment and Plan: Related to current illness PT/OT Time Spent With Patient Time with patient: Greater than 35 minutes Subjective Date/time seen: 01/01/22 0800 Interval history: Date/Time: 12/29/21 21:53 Narrative: This is a 56-year-old male with past medical history significant for count for COPD/emphysema, former smoker. Patient presents to the emergency room with severe respiratory distress according to patient he had been to the emergency room about a month ago or so and decided to go home and manages symptoms at home however patient had progressive declined and deconditioning is staying in bed most of the day with severe distress upon standing and with ambulation in doing his activities he has been bed bound and unable to fix his own meals has some help from his son who lives at home with him patient noted weight loss as well as a result of all of these, patient having chills, tremors, no cough or sputum production however. Today patient decided to come to the emergency room due to severe respiratory distress and pain he was found to have acute tension pneumothorax of the right side patient is now status post chest tube placement. Patient is being admitted for further evaluation, management and treatment. Date/Time 12/30/21 0900 Patient is lying in bed. Patient states that he does use home O2 with room air at rest, 4 L with activity, 3 L with sleep. Patient has been wearing about 5 L at home which has been giving him a saturation of 94-95%. Patient also is eating and is excited about eating. He stated that he would take about an hour and half to complete a meal at home his he would become very short of breath. He also admits to having shortness of breath with activity. He does have pain in his insertion site which he states is a 1/10. Patient denies any sweats, fevers, chills. He also denies any chest pain, abdominal pain, nausea, vomiting Did talk to Marta velazco [place] who stated that they are at capacity, and were not accepting any transfers at this time. Collette from [facility] stated that there was some availability in there step down and she was going to look into it. Date/Time 12/31/21 0930 Patient seems to be doing about the same today. He denies any chest pain however he is complaining of shortness of breath. Chest x-ray did indicate a little bit worsening of the pneumothorax. Patient also has crepitus and the air leak looks to have been decreased. He denies any nausea, vomiting, diarrhea, constipation. Patient is weak and fatigued. Patient also stated that he has increased shortness of breath especially with activity. I did discuss the case again with Dr. Carrasco and will call for further transfer needs. Date/Time 01/01/22 0800 Patient seems to be doing well today. Patient stated that his breathing gets wors
[2022-01-01] MEDS: FLUTICASONE/UMECLIDIN/VILANTER 200-62.5-25 MCG ELLIPTA 1 PUFF INHALATION (08:40)
--- NOTE | 2022-01-01 09:07 | PM.PNGS ---
Progress Note: A&P Assessment and Plan (1) Spontaneous tension pneumothorax: Code(s): J93.0 - Spontaneous tension pneumothorax Status: Acute Assessment and Plan: stable, cont CT to sxn (try to decrease sxn back to 20), awaiting transfer to thoracic surgery Subjective Subjective Date/Time Seen: 01/01/22 09:07 feels better today, decreased SOB Review of Systems Review of Systems: All systems reviewed & are unremarkable except as noted in HPI and below Exam Const: General: cooperative, comfortable, no acute distress and ill appearing Chest: Chest palpation & inspection: normal inspection of the chest Other: R CT - persistent air leak Resp: Effort & Inspection: normal respiratory effort Auscultation: diminished lung sounds Cardio: Rate: regular rate Rhythm: regular rhythm GI: Inspection: normal to inspection GI Palp: Yes Soft to palpation, No Tenderness to palpation present (GI) and No Guarding due to palpation present (GI) Objective Data Vital Signs Vital Signs: Vital Signs - 24 hr 12/31/21 10:00 12/31/21 11:49 12/31/21 12:00 Temperature 36.3 C L Pulse Rate 101 H 87 93 Respiratory Rate 18 Blood Pressure 111/63 Pulse Oximetry 97 12/31/21 14:00 12/31/21 16:00 12/31/21 16:30 Temperature 36.3 C L Pulse Rate 90 78 73 Respiratory Rate 18 Blood Pressure 101/61 Pulse Oximetry 100 12/31/21 19:52 12/31/21 20:00 12/31/21 22:00 Temperature 36.6 C Pulse Rate 88 80 71 Respiratory Rate 18 Blood Pressure 98/65 L Pulse Oximetry 98 12/31/21 23:37 01/01/22 00:00 01/01/22 02:00 Temperature 36.6 C Pulse Rate 79 79 76 Respiratory Rate 15 15 Blood Pressure 93/67 L Pulse Oximetry 100 100 01/01/22 04:00 01/01/22 05:13 01/01/22 05:47 Temperature 37.0 C Pulse Rate 87 80 Respiratory Rate 16 Blood Pressure 96/71 L Pulse Oximetry 100 98 01/01/22 08:45 Temperature Pulse Rate Respiratory Rate Blood Pressure Pulse Oximetry 97 Intake/Output Intake/Output: Intake & Output 12/29/21 12/30/21 12/31/21 01/01/22 23:59 23:59 23:59 23:59 Intake Total 4420 1200 600 Output Total 1550 1015 1300 Balance 2870 185 -700 Meds/Results Medications: Active Medications Generic Name Dose Route Start Last Admin Trade Name Freq PRN Reason Stop Dose Admin Albuterol 2 puff 12/31/21 10:10 Albuterol Sulfate (*Sp) Aerosol 1 Puff INHALATION QIDRT PRN Shortness Of Breath Enoxaparin Sodium 40 mg 01/01/22 09:00 Enoxaparin 40 Mg/0.4 Ml Syringe SUB-Q DAILY LISA Fluticasone/Umeclidinium/Vilanterol 1 puff 12/30/21 08:00 01/01/22 08:40 Fluticasone/Umeclidin/Vilanter 200-62.5-25 Mcg Ellipta INHALATION 1 puff DAILYRT LISA Administration Tramadol HCl 50 mg 12/30/21 01:47 01/01/22 05:43 Tramadol Hcl (*Crx) 50 Mg Tablet PO 50 mg Q6H PRN Administration Pain Rated 4-6 Radiology Results: ITS Impressions Chest CT 12/30/21 12:55 IMPRESSION: 1. Right-sided chest tube in place with small right pneumothorax. 2. Stable bilateral pulmonary nodules, likely sequela of prior infection. 3. Severe emphysema. Abdomen/Pelvis CT 12/31/21 11:50 IMPRESSION: 1. No free intraperitoneal gas. 2. Moderate-sized right pneumothorax and small right pleural effusion with right-sided chest tube noted. 3. Severe emphysema. Chest X-Ray 01/01/22 06:46 IMPRESSION: 1. Small right hydropneumothorax with interval improvement. Right-sided chest tube noted. 2. Severe emphysema with mild scarring and atelectasis.. Labs Labs: Laboratory Results - last 24 hr 01/01/22 01/01/22 04:32 04:32 WBC 7.5 RBC 4.10 L Hgb 12.9 L Hct 40.7 L MCV 99.3 MCH 31.5 MCHC 31.7 L RDW 11.8 Plt Count 154 MPV 9.7 Immature Gran % (Auto) 0.4 Neut % (Auto) 69.8 Lymph % (Auto) 14.0 L Noble % (Auto) 10.5 H Eos % (Auto) 4.9 H Baso % (Auto) 0.4 Lymph # (Auto) 1.05 Noble # (Auto) 0.8 H Eos #
[2022-01-01] MEDS: ENOXAPARIN 40 MG/0.4 ML SYRINGE SUB-Q (09:45)
--- NOTE | 2022-01-01 10:29 | PC.NURSE ---
Turned just tube suction down to 20cm per nursing communication. Patient tolerated well.
--- NOTE | 2022-01-01 11:08 | PM.PNPUL ---
Progress Note: A&P Assessment and Plan (1) Secondary spontaneous pneumothorax: Code(s): J93.12 - Secondary spontaneous pneumothorax Status: Acute Assessment and Plan: Patient with a history of severe centrilobular and paraseptal bulla on a CT scan report from [facility] on [facility]21 and history of being a carrier for alpha-1 antitrypsin deficiency and now with a pneumothorax. Patient has his symptoms of a pneumothorax for the last 4 weeks and presented to the emergency room on 12/30/2021 and found to have a large right pneumothorax with shift of the mediastinal to the left. He was hemodynamically stable but hypoxemic. The emergency department placed a Cook catheter emergently with partial resolution of his pneumothorax. Clinically the patient is much improved. I will repeat a CT scan of the chest to confirm his emphysema as well as assess his underlying multiple nodules. I will increase his oxygen in an attempt to help resort his pneumothorax. General surgery has been consulted to manage his chest tube. I recommend transferring the patient to a facility that has a thoracic surgery team so that the patient can be evaluated for a definitive procedure such as talc pleurodesis and/or VATS procedure. Of note the patient has a history of multiple pulmonary nodules including enlarging nodules in the right upper lobe, right lower lobe and left lower lobe and was scheduled for a CT PET on 12/31/2021 at our hospital. This will not be performed as an inpatient here. 12/31 Patient is stable and his respiratory status. He no longer has any rest shortness of breath and his dyspnea on exertion around the room is improved. Cook catheter remains in place at 20 suction with an intermittent air leak. Currently is at 3 L nasal cannula saturations 100%. Chest x-ray shows minimally worsened right apical pneumothorax. No wheezes on exam. recommend transfer to facility with thoracic surgery team. Shortness of breath with worsening pneumothorax and a suction was increased to 30 01/01 this morning patient states he is stable. He is on 3 L nasal cannula saturations 98%. His Cook catheter is place with an intermittent air leak on 30 suction. His chest x-ray shows a continued right apical pneumothorax mildly improved since yesterday. He has no wheezing. Awaiting transfer to a facility that has a thoracic surgery team. (2) COPD (chronic obstructive pulmonary disease): Code(s): J44.9 - Chronic obstructive pulmonary disease, unspecified Status: Acute Assessment and Plan: 12/30 Patient is maintained on trelegy inhaler 200-62.5-25 at 1 puff q.day and I will continue this now. There is no evidence number of pneumonia, COPD exacerbation or tracheobronchitis at this time. I do not feel a need for systemic steroids or antibiotics. 12/31 Patient states his respiratory status continues to improve oxygenation is stable, no wheezing, no evidence of a COPD exacerbation. Continue trelegy 200-62.5-25. 01/01 Continue Trelegy. Discussed with Hospitalist Robe Dalton, will sign off, call with questions. Subjective Date/time seen: 01/01/22 11:08 Interval history: 12/30/2021: This is a new pulmonary consult for COPD with a secondary spontaneous pneumothorax. History obtained from the patient as I have no outside medical records. 56-year-old male with a history of alpha 1 antitrypsin deficiency noted by genetic testing with low normal levels, COPD with hypoxic respiratory failure on room air at rest, 4 L with ambulation and 3 L at night and multiple lung nodules who is followed at [facility] pulmonology. The patient states that the can sterilizer is appealing the decision not to treat his alpha 1 anti trypsin based on his levels that are a few points higher than what would qualify him for treatment. Patient is maintained on trelegy inhaler and had a CT scan on 11/11/2021 at [place]
[2022-01-02] VITALS (17 sets, daily range): BP systolic 96–119; BP diastolic 58–80; PULSE 63–98; RESP 15–20; TEMP 35.9–36.8; O2SAT 97–100
[2022-01-02] MEDS: traMADol HCL (*CRX) 50 MG TABLET PO ×2 (04:45→13:30)
[2022-01-02] MEDS: FLUTICASONE/UMECLIDIN/VILANTER 200-62.5-25 MCG ELLIPTA 1 PUFF INHALATION (08:41)
[2022-01-02] MEDS: ENOXAPARIN 40 MG/0.4 ML SYRINGE SUB-Q (09:07)
--- NOTE | 2022-01-02 09:45 | PM.IMPN ---
Progress Note: A&P Assessment and Plan (1) Spontaneous tension pneumothorax: Code(s): J93.0 - Spontaneous tension pneumothorax Status: Acute Assessment and Plan: Reports progressive shortness of breath Cxray: large right Pneumo with mediastinal shift to the left General surgery consulted thank you for your help Chest tube placed, GS to manage Trend drainage Daily chest xray- Small right hydropneumothorax with interval improvement. Right-sided chest tube noted. Working on transfer (2) COPD (chronic obstructive pulmonary disease): Code(s): J44.9 - Chronic obstructive pulmonary disease, unspecified Status: Acute Assessment and Plan: pH 7.387, pCO2 56.4, pO2 80.4, HCO3 33.1, O2 saturation 95.5 Currently on 3LNC Continue home trelegy ellipta 1 puff daily Breathing treatments, DC'd by Pulm Pulmonology consult Supplemental oxygen, wean to maintain saturations >90% Not in an acute exacerbation (3) Muscular deconditioning: Code(s): R29.898 - Other symptoms and signs involving the musculoskeletal system Status: Acute Assessment and Plan: Related to current illness PT/OT Time Spent With Patient Time with patient: Greater than 35 minutes Subjective Date/time seen: 01/02/22 0945 Interval history: Date/Time: 12/29/21 21:53 Narrative: This is a 56-year-old male with past medical history significant for count for COPD/emphysema, former smoker. Patient presents to the emergency room with severe respiratory distress according to patient he had been to the emergency room about a month ago or so and decided to go home and manages symptoms at home however patient had progressive declined and deconditioning is staying in bed most of the day with severe distress upon standing and with ambulation in doing his activities he has been bed bound and unable to fix his own meals has some help from his son who lives at home with him patient noted weight loss as well as a result of all of these, patient having chills, tremors, no cough or sputum production however. Today patient decided to come to the emergency room due to severe respiratory distress and pain he was found to have acute tension pneumothorax of the right side patient is now status post chest tube placement. Patient is being admitted for further evaluation, management and treatment. Date/Time 12/30/21 0900 Patient is lying in bed. Patient states that he does use home O2 with room air at rest, 4 L with activity, 3 L with sleep. Patient has been wearing about 5 L at home which has been giving him a saturation of 94-95%. Patient also is eating and is excited about eating. He stated that he would take about an hour and half to complete a meal at home his he would become very short of breath. He also admits to having shortness of breath with activity. He does have pain in his insertion site which he states is a 1/10. Patient denies any sweats, fevers, chills. He also denies any chest pain, abdominal pain, nausea, vomiting Did talk to Marta velazco [place] who stated that they are at capacity, and were not accepting any transfers at this time. Collette from [facility] stated that there was some availability in there step down and she was going to look into it. Date/Time 12/31/21 0930 Patient seems to be doing about the same today. He denies any chest pain however he is complaining of shortness of breath. Chest x-ray did indicate a little bit worsening of the pneumothorax. Patient also has crepitus and the air leak looks to have been decreased. He denies any nausea, vomiting, diarrhea, constipation. Patient is weak and fatigued. Patient also stated that he has increased shortness of breath especially with activity. I did discuss the case again with Dr. Carrasco and will call for further transfer needs. Date/Time 01/01/22 0800 Patient seems to be doing well today. Patient stated that his breathing gets wors
--- NOTE | 2022-01-02 12:16 | PM.PNGS ---
Progress Note: A&P Assessment and Plan (1) Spontaneous tension pneumothorax: Code(s): J93.0 - Spontaneous tension pneumothorax Status: Acute Assessment and Plan: CXR unchanged. Persistent pleural leak. Continue to chest tube to 20 cm suction. Repeat chest x-ray in a.m.. Awaiting transfer to tertiary facility for thoracic surgery. Additional Plan I have discussed the patient's case and plan of care with Dr. Cottrell. Subjective Subjective Date/Time Seen: 01/02/22 12:16 Patient reports: no new complaints Interval history: Patient seen and examined this morning. No acute events overnight. He reports feeling the same as yesterday. Currently on 3 L O2 nasal cannula Exam Const: General: comfortable, no acute distress and awake Chest: Other: Right-sided chest tube with dressing dry and intact, persistent air leak noted Resp: Effort & Inspection: no respiratory distress Auscultation: diminished lung sounds diffuse (Diminished throughout) Cardio: Rate: regular rate Rhythm: regular rhythm Extrem: General: normal to inspection Psych: Insight: Good insight present (Psych) Judgement: Good judgement present (Psych) Objective Data Vital Signs Vital Signs: Vital Signs - 24 hr 01/01/22 13:04 01/01/22 14:00 01/01/22 16:00 Temperature 97.4 F L Pulse Rate 87 88 97 Respiratory Rate 18 Blood Pressure 107/69 Pulse Oximetry 100 98 01/01/22 17:06 01/01/22 18:00 01/01/22 20:00 Temperature 97.9 F 98.4 F Pulse Rate 96 100 94 Respiratory Rate 20 18 Blood Pressure 94/69 L 104/65 Pulse Oximetry 97 99 01/01/22 22:00 01/01/22 23:45 01/02/22 00:00 Temperature 98.0 F Pulse Rate 89 79 74 Respiratory Rate 18 18 Blood Pressure 97/58 L Pulse Oximetry 99 99 01/02/22 02:00 01/02/22 03:42 01/02/22 04:00 Temperature 96.9 F L Pulse Rate 84 63 74 Respiratory Rate 15 19 Blood Pressure 100/67 Pulse Oximetry 100 100 01/02/22 06:00 01/02/22 08:00 01/02/22 08:44 Temperature 98 F Pulse Rate 69 82 Respiratory Rate 16 Blood Pressure 119/76 Pulse Oximetry 99 99 01/02/22 10:00 01/02/22 11:47 Temperature 98.3 F Pulse Rate 90 98 Respiratory Rate 20 Blood Pressure 112/68 Pulse Oximetry 97 Intake/Output Intake/Output: Intake & Output 12/30/21 12/31/21 01/01/22 01/02/22 23:59 23:59 23:59 23:59 Intake Total 4420 1200 700 730 Output Total 1550 1015 2035 1300 Balance 2878 078 -2914 -218 Meds/Results Medications: Active Medications Generic Name Dose Route Start Last Admin Trade Name Freq PRN Reason Stop Dose Admin Albuterol 2 puff 12/31/21 10:10 Albuterol Sulfate (*Sp) Aerosol 1 Puff INHALATION QIDRT PRN Shortness Of Breath Enoxaparin Sodium 40 mg 01/01/22 09:00 01/02/22 09:07 Enoxaparin 40 Mg/0.4 Ml Syringe SUB-Q 40 mg DAILY LISA Administration Fluticasone/Umeclidinium/Vilanterol 1 puff 12/30/21 08:00 01/02/22 08:41 Fluticasone/Umeclidin/Vilanter 200-62.5-25 Mcg Ellipta INHALATION 1 puff DAILYRT LISA Administration Sodium Chloride 1 spray 01/01/22 15:26 Saline 0.65% Clement Soln 44 Ml Btl NASAL Q6HR PRN Congestion Tramadol HCl 50 mg 12/30/21 01:47 01/02/22 04:45 Tramadol Hcl (*Crx) 50 Mg Tablet PO 50 mg Q6H PRN Administration Pain Rated 4-6 Radiology Results: ITS Impressions Chest CT 12/30/21 12:55 IMPRESSION: 1. Right-sided chest tube in place with small right pneumothorax. 2. Stable bilateral pulmonary nodules, likely sequela of prior infection. 3. Severe emphysema. Abdomen/Pelvis CT 12/31/21 11:50 IMPRESSION: 1. No free intraperitoneal gas. 2. Moderate-sized right pneumothorax and small right pleural effusion with right-sided chest tube noted. 3. Severe emphysema. ADDENDUM: 01/01/22 1219 The contrast dose was 92 mL Omnipaque 350. Chest X-Ray 01/02/22 06:39 IMPRESSION: 1. Stable small right pneumothorax with chest tube in unchanged position. 2. Severe
[2022-01-03] VITALS (13 sets, daily range): BP systolic 96–105; BP diastolic 59–69; PULSE 73–101; RESP 16–20; TEMP 35.6–36.9; O2SAT 96–99
[2022-01-03 04:58] LABS: Basophils Percent Auto 0.6 % (0.2-1.2); Eosinophils Absolute Auto 0.4 K/mm3 (0-0.3); Hematocrit 42.3 % (42.0-52.0); Hemoglobin 13.7 g/dL (14.0-18.0); Immature Granulocyte Absolute 0.03 K/mm3 (0.00-0.031); Immature Granulocyte Percent A 0.6 % (0-0.5); Lymphocytes Percent Auto 18.5 % (18.3-44.2); Mean Corpuscular HGB Conc 32.4 g/dl (32-36); Mean Corpuscular Hemoglobin 31.4 pg (26-34); Mean Platelet Volume 9.3 fl (7.4-10.4); Monocytes Absolute Auto 0.5 K/mm3 (0.1-0.6); Monocytes Percent Auto 8.9 % (2.6-8.5); Neutrophils Absolute Auto 3.5 K/mm3 (1.3-6.7); Neutrophils Percent Auto 64.4 % (45.5-73.1); Platelet Count Result 148 k/mm3 (150-375); Red Blood Count 4.36 M/mm3 (4.6-6.20); Red Cell Distribution Width 11.6 % (11.5-14.5); White Blood Count 5.4 K/mm3 (4.5-10.0)
[2022-01-03 05:14] LABS: Alanine Aminotransferase 25 U/L (4-50); Albumin Level 3.5 g/dL (3.5-5.1); Alkaline Phosphatase 56 U/L (38-126); Anion Gap 4 mmol/L (8-16); Aspartate Amino Transferase 26 U/L (17-59); Blood Urea Nitrogen 13 mg/dL (9-20); Calcium 8.3 mg/dL (8.4-10.2); Carbon Dioxide 36 mmol/L (22-30); Chloride 96 mmol/L (98-107); Estimated CRCL calculation 87 ml/min; Estimated Glomerular Filt Rate > 60; Glucose 92 mg/dL (65-110); Potassium 4.3 mmol/L (3.4-5.0); Sodium 136 mmol/L (137-145)
[2022-01-03] MEDS: ENOXAPARIN 40 MG/0.4 ML SYRINGE SUB-Q (08:44)
[2022-01-03] MEDS: FLUTICASONE/UMECLIDIN/VILANTER 200-62.5-25 MCG ELLIPTA 1 PUFF INHALATION (08:50)
--- NOTE | 2022-01-03 10:15 | PM.IMPN ---
Progress Note: A&P Assessment and Plan (1) Spontaneous tension pneumothorax: Code(s): J93.0 - Spontaneous tension pneumothorax Status: Acute Assessment and Plan: Reports progressive shortness of breath Cxray: large right Pneumo with mediastinal shift to the left General surgery consulted thank you for your help Chest tube placed, GS to manage Trend drainage, no more drainage noted Daily chest xray- Worsened moderate-sized right pneumothorax with unchanged chest tube. Working on transfer, seems as if [facility] has accepted patient Dr. Power from hospitalist team accepted patient, did also talk to CTS Dr. Tamez who stated that he wanted pulm to evaluate first and will take the lead from them . (2) COPD (chronic obstructive pulmonary disease): Code(s): J44.9 - Chronic obstructive pulmonary disease, unspecified Status: Acute Assessment and Plan: pH 7.387, pCO2 56.4, pO2 80.4, HCO3 33.1, O2 saturation 95.5 Currently on 3LNC Continue home trelegy ellipta 1 puff daily Breathing treatments, DC'd by Pulm Pulmonology consult thank you for your recommendations Supplemental oxygen, wean to maintain saturations >90% Not in an acute exacerbation (3) Muscular deconditioning: Code(s): R29.898 - Other symptoms and signs involving the musculoskeletal system Status: Acute Assessment and Plan: Related to current illness PT/OT Time Spent With Patient Time with patient: Greater than 35 minutes Subjective Date/time seen: 01/03/22 10:15 Interval history: Date/Time: 12/29/21 21:53 Narrative: This is a 56-year-old male with past medical history significant for count for COPD/emphysema, former smoker. Patient presents to the emergency room with severe respiratory distress according to patient he had been to the emergency room about a month ago or so and decided to go home and manages symptoms at home however patient had progressive declined and deconditioning is staying in bed most of the day with severe distress upon standing and with ambulation in doing his activities he has been bed bound and unable to fix his own meals has some help from his son who lives at home with him patient noted weight loss as well as a result of all of these, patient having chills, tremors, no cough or sputum production however. Today patient decided to come to the emergency room due to severe respiratory distress and pain he was found to have acute tension pneumothorax of the right side patient is now status post chest tube placement. Patient is being admitted for further evaluation, management and treatment. Date/Time 12/30/21 09 Patient is lying in bed. Patient states that he does use home O2 with room air at rest, 4 L with activity, 3 L with sleep. Patient has been wearing about 5 L at home which has been giving him a saturation of 94-95%. Patient also is eating and is excited about eating. He stated that he would take about an hour and half to complete a meal at home his he would become very short of breath. He also admits to having shortness of breath with activity. He does have pain in his insertion site which he states is a 1/10. Patient denies any sweats, fevers, chills. He also denies any chest pain, abdominal pain, nausea, vomiting Did talk to [facility]a vel[facility]co [place] who stated that they are at capacity, and were not accepting any transfers at this time. Collette velazco [facility] stated that there was some availability in there step down and she was going to look into it. Date/Time 12/31/21 09 Patient seems to be doing about the same today. He denies any chest pain however he is complaining of shortness of breath. Chest x-ray did indicate a little bit worsening of the pneumothorax. Patient also has crepitus and the air leak looks to have been decreased. He denies any nausea, vomiting, diarrhea, constipation. Patient is weak and fatigued. Patient also stated that he has inc
--- NOTE | 2022-01-03 12:20 | PM.PNGS ---
Progress Note: A&P Assessment and Plan (1) Spontaneous tension pneumothorax: Code(s): J93.0 - Spontaneous tension pneumothorax Status: Acute Assessment and Plan: CXR c sl worse PTX today, clinically unchanged, will hold off on upsizing tube at this point as he would most benefit from thoracic procedure, await transfer to thoracic surgery, did d/w pt if clinically worsening would need to upsize CT Subjective Subjective Date/Time Seen: 01/03/22 12:20 no acute issues, reports no increasing SOB, still c air leak Review of Systems Review of Systems: All systems reviewed & are unremarkable except as noted in HPI and below Exam Const: General: cooperative, comfortable, no acute distress and ill appearing Orientation/consciousness: patient oriented x3 Chest: Chest palpation & inspection: normal inspection of the chest Other: R CT - persistent air leak Resp: Effort & Inspection: normal respiratory effort Auscultation: diminished lung sounds Cardio: Rate: regular rate Rhythm: regular rhythm Objective Data Vital Signs Vital Signs: Vital Signs - 24 hr 01/02/22 14:00 01/02/22 16:00 01/02/22 17:42 Temperature 36.8 C Pulse Rate 83 82 96 Respiratory Rate 16 Blood Pressure 114/68 Pulse Oximetry 98 01/02/22 20:00 01/02/22 20:03 01/02/22 20:28 Temperature 35.9 C L Pulse Rate 73 Respiratory Rate 16 Blood Pressure 96/64 L Pulse Oximetry 98 100 98 01/02/22 23:53 01/03/22 00:00 01/03/22 04:00 Temperature 35.9 C L 35.6 C L Pulse Rate 86 73 75 Respiratory Rate 16 16 16 Blood Pressure 114/80 96/67 L Pulse Oximetry 99 98 99 01/03/22 08:00 01/03/22 08:45 01/03/22 08:51 Temperature 36.8 C Pulse Rate 87 Respiratory Rate 16 Blood Pressure 99/69 L Pulse Oximetry 98 98 98 01/03/22 10:00 01/03/22 11:35 Temperature 36.9 C Pulse Rate 90 101 H Respiratory Rate 16 Blood Pressure 97/59 L Pulse Oximetry 96 Intake/Output Intake/Output: Intake & Output 12/31/21 01/01/22 01/02/22 01/03/22 23:59 23:59 23:59 23:59 Intake Total 2394 616 7922 360 Output Total 1015 2035 1425 525 Balance 185 -1335 145 -165 Meds/Results Medications: Active Medications Generic Name Dose Route Start Last Admin Trade Name Gerryq PRN Reason Stop Dose Admin Albuterol 2 puff 12/31/21 10:10 Albuterol Sulfate (*Sp) Aerosol 1 Puff INHALATION QIDRT PRN Shortness Of Breath Enoxaparin Sodium 40 mg 01/01/22 09:00 01/03/22 08:44 Enoxaparin 40 Mg/0.4 Ml Syringe SUB-Q 40 mg DAILY LISA Administration Fluticasone/Umeclidinium/Vilanterol 1 puff 12/30/21 08:00 01/03/22 08:50 Fluticasone/Umeclidin/Vilanter 200-62.5-25 Mcg Ellipta INHALATION 1 puff DAILYRT LISA Administration Sodium Chloride 1 spray 01/01/22 15:26 Saline 0.65% Clement Soln 44 Ml Btl NASAL Q6HR PRN Congestion Tramadol HCl 50 mg 12/30/21 01:47 01/02/22 13:30 Tramadol Hcl (*Crx) 50 Mg Tablet PO 50 mg Q6H PRN Administration Pain Rated 4-6 Radiology Results: ITS Impressions Chest CT 12/30/21 12:55 IMPRESSION: 1. Right-sided chest tube in place with small right pneumothorax. 2. Stable bilateral pulmonary nodules, likely sequela of prior infection. 3. Severe emphysema. Abdomen/Pelvis CT 12/31/21 11:50 IMPRESSION: 1. No free intraperitoneal gas. 2. Moderate-sized right pneumothorax and small right pleural effusion with right-sided chest tube noted. 3. Severe emphysema. ADDENDUM: 01/01/22 1219 The contrast dose was 92 mL Omnipaque 350. Chest X-Ray 01/03/22 07:00 IMPRESSION: 1. Worsened moderate-sized right pneumothorax with unchanged chest tube. 2. Severe emphysema with mild scarring. Labs Labs: Laboratory Results - last 24 hr 01/03/22 01/03/22 04:42 04:42 WBC 5.4 RBC 4.36 L Hgb 13.7 L Hct 42.3 MCV 97.0 MCH 31.4 MCHC 32.4 RDW 11.6 Plt Count 148 L MPV 9.3 Immature Gran % (Auto) 0.6 H Neut % (Auto
--- NOTE | 2022-01-03 13:40 | PCNFU ---
Nutrition Follow-Up Complete: Severe Malnutrition related to inadequte protein-energy intake with increased protein-energy needs in setting of COPD as evidenced by minimal oral intake over 1 month, significant weight loss of 25% in 1 month, severe loss of subcutaneous fat (orbital, triceps, buccal fat pads) and severe muscle mass loss (wasting of temporalis, deltoids, interosseous, quadriceps) Goal: Pt to meet 75% of estimated nutritional needs Pt is progressing towards goal Pt current nutrition is regular diet and dietary supplements Last recorded weight is 45.2 kg, up 2.5kg from admit weight reported on 12/29/21. Bowel Motility: No new BM reported Labs Reviewed: Hgb 13.7, CO2 36, Na 136, Cl 96, Ca 8.3, Cr 0.50 Meds Noted: Lovenox Skin: Lateral chest incision Additional Notes: Per physician notes, chest tube has grade one air leak but remains in place. Current nutrition is a regular diet with double portions and dietary supplements of Ensure Compact TID w/meals providing an additional 220kcal and 9g of protein to increase caloric intake. Reported intake is 50%, 100% x2, and 75% x2. Pt appears to be tolerating diet orders with adequate intake. Agree with diet orders at this time. Will continue to follow. Will monitor labs, medication, wt, and reported intake every 7 days.
--- NOTE | 2022-01-03 16:17 | P.TS_ITS ---
Transfer Discharge Sum: Prov Provider Date of admission: 12/31/21 13:11 Primary care physician: Claudia Thorne, [employer]IST Admitting clinician: Lio Dillon MD Attending physician on admission: Lio Dillon Consults: 12/29/21 22:01 Consult to Physician Routine Comment: Consulting Provider: Amberly Cottrell Reason for consultation: pneumothorax Has provider been notified: Yes 12/30/21 Consult to Dietitian Routine Reason for Consult:: Malnourished, additional supplementation to help with nutrition Consult to Physician Routine Comment: Consulting Provider: Deandre Carrasco tool turret lathe set up operator/MD group to consult: Pulmonology Reason for consultation: COPD Has provider been notified: Yes Attending physician on discharge: Elsy Stuart Discharging clinician: Robe Dalton Anticipated date of transfer: 01/03/22 Receiving physician/facility: Dr. Power with [facility] hospitalist DS: Admitting Diagnosis Discharge Date 01/03/22 Admitting Diagnosis Spontaneous tension pneumothorax DS: Discharge Diagnosis Discharge Diagnosis (1) Spontaneous tension pneumothorax: Code(s): J93.0 - Spontaneous tension pneumothorax Status: Acute Assessment and Plan: * Reports progressive shortness of breath * Cxray: large right Pneumo with mediastinal shift to the left * General surgery consulted thank you for your help * Chest tube placed, GS to manage * Trend drainage, no more drainage noted * Daily chest xray- Worsened moderate-sized right pneumothorax with unchanged chest tube. * Working on transfer, seems as if [facility] has accepted patient * Dr. Power from hospitalist team accepted patient, did also talk to [facility] Dr. Tamez who stated that he wanted pulm to evaluate first and will take the lead from them . (2) COPD (chronic obstructive pulmonary disease): Code(s): J44.9 - Chronic obstructive pulmonary disease, unspecified Status: Acute Assessment and Plan: * pH 7.387, pCO2 56.4, pO2 80.4, HCO3 33.1, O2 saturation 95.5 * Currently on 3LNC * Continue home trelegy ellipta 1 puff daily * Breathing treatments, DC'd by Pulm * Pulmonology consult thank you for your recommendations * Supplemental oxygen, wean to maintain saturations >90% * Not in an acute exacerbation (3) Muscular deconditioning: Code(s): R29.898 - Other symptoms and signs involving the musculoskeletal system Status: Acute Assessment and Plan: * Related to current illness * PT/OT Transfer Discharge Sum: Med Medications Active and Home Medications: Home Medications albuterol sulfate 1 inh INHALATION QID PRN 12/29/21 [History Confirmed 12/29/21] dimdsdeiain-pjlakmzke-[id number] [Trelegy Ellipta] 1 inh INHALATION DAILY 12/29/21 [History Confirmed 12/29/21] Active Medications Albuterol (Albuterol Sulfate (*Sp) Aerosol 1 Puff) 2 puff INHALATION QIDRT PRN PRN Reason: Shortness Of Breath Enoxaparin Sodium (Enoxaparin 40 Mg/0.4 Ml Syringe) 40 mg SUB-Q DAILY [facility] Last Admin: 01/03/22 08:44 Dose: 40 mg Documented by: Fluticasone/Umeclidinium/Vilanterol (Fluticasone/Umeclidin/Vilanter 200-62.5-25 Mcg Ellipta) [facility] Last Admin: 01/03/22 08:50 Dose: 1 puff Documented by: Sodium Chloride (Saline 0.65% Clement Soln 44 Ml Btl) 1 spray NASAL Q6HR PRN PRN Reason: Congestion Tramadol HCl (Tramadol Hcl (*Crx) 50 Mg
--- NOTE | 2022-01-03 16:17 | PM.TDS ---
Transfer Discharge Sum: Prov Provider Date of admission: 12/31/21 13:11 Primary care physician: Claudia Thorne, LAUNCHMAN Admitting clinician: Lio Dillon MD Attending physician on admission: Lio Dillon Consults: 12/29/21 22:01 Consult to Physician Routine Comment: Consulting Provider: Amberly Cottrell Reason for consultation: pneumothorax Has provider been notified: Yes 12/30/21 Consult to Dietitian Routine Reason for Consult:: Malnourished, additional supplementation to help with nutrition Consult to Physician Routine Comment: Consulting Provider: Deandre Carrasco scallop cutter machine/MD group to consult: Pulmonology Reason for consultation: COPD Has provider been notified: Yes Attending physician on discharge: Elsy Stuart Discharging clinician: Robe Dalton Anticipated date of transfer: 01/03/22 Receiving physician/facility: Dr. Power with [facility] hospitalist DS: Admitting Diagnosis Discharge Date 01/03/22 Admitting Diagnosis Spontaneous tension pneumothorax DS: Discharge Diagnosis Discharge Diagnosis (1) Spontaneous tension pneumothorax: Code(s): J93.0 - Spontaneous tension pneumothorax Status: Acute Assessment and Plan: Reports progressive shortness of breath Cxray: large right Pneumo with mediastinal shift to the left General surgery consulted thank you for your help Chest tube placed, GS to manage Trend drainage, no more drainage noted Daily chest xray- Worsened moderate-sized right pneumothorax with unchanged chest tube. Working on transfer, seems as if [facility] has accepted patient Dr. Power from hospitalist team accepted patient, did also talk to [facility] Dr. Tamez who stated that he wanted pulm to evaluate first and will take the lead from them . (2) COPD (chronic obstructive pulmonary disease): Code(s): J44.9 - Chronic obstructive pulmonary disease, unspecified Status: Acute Assessment and Plan: pH 7.387, pCO2 56.4, pO2 80.4, HCO3 33.1, O2 saturation 95.5 Currently on 3LNC Continue home trelegy ellipta 1 puff daily Breathing treatments, DC'd by Pulm Pulmonology consult thank you for your recommendations Supplemental oxygen, wean to maintain saturations >90% Not in an acute exacerbation (3) Muscular deconditioning: Code(s): R29.898 - Other symptoms and signs involving the musculoskeletal system Status: Acute Assessment and Plan: Related to current illness PT/OT Transfer Discharge Sum: Med Medications Active and Home Medications: Home Medications albuterol sulfate 1 inh INHALATION QID PRN 12/29/21 [History Confirmed 12/29/21] pyokhhszghm-myifawupg-ajynjeql [Trelegy Ellipta] 1 inh INHALATION DAILY 12/29/21 [History Confirmed 12/29/21] Active Medications Albuterol (Albuterol Sulfate (*Sp) Aerosol 1 Puff) 2 puff INHALATION QIDRT PRN PRN Reason: Shortness Of Breath Enoxaparin Sodium (Enoxaparin 40 Mg/0.4 Ml Syringe) 40 mg SUB-Q DAILY COUNTS INCLUDE 234 BEDS AT THE [facility] Last Admin: 01/03/22 08:44 Dose: 40 mg Documented by: Fluticasone/Umeclidinium/Vilanterol (Fluticasone/Umeclidin/Vilanter 200-62.5-25 Mcg Ellipta) 1 puff INHALATION DAILYRT COUNTS INCLUDE 234 BEDS AT THE [facility] Last Admin: 01/03/22 08:50 Dose: 1 puff Documented by: Sodium Chloride (Saline 0.65% Clement Soln 44 Ml Btl) 1 spray NASAL Q6HR PRN PRN Reason: Congestion Tramadol HCl (Tramadol Hcl (*Crx) 50 Mg Tablet) 50 mg PO Q6H PRN PRN Reason: Pain Rated 4-6 Last Admin: 01/02/22 13:30 Dose: 50 mg Documented by: Transfer Discharge Sum: Hosp Hospital Course Hospital course: Manny Munoz is a 56 year old male with past medical history of alpha 1 antitrypsin trait, COPD, depression anxiety who presented the ED with severe respiratory distress. Chest x-ray indicated the patient had a tension pneumothorax. General surgery was consulted and placed a chest tube. Chest x-rays have been waxing waning on the condition of the pneumothorax. Pulmonology was consulted an
== END 2022-01-03 17:30 | disposition short-term general hospital (02) | DRG 143 ==
LOC: ANHED 21:47 → ANHIMU 22:15
PROVIDERS: Admitting Provider Internal Medicine; Emergency Provider Emergency Medicine; PCP Nurse Practitioner Adult Health; Visit Provider Nurse Practitioner
DX: J93.0 Spontaneous tension pneumothorax (principal); J96.10 Chronic respiratory failure, unspecified whether with hypoxia or hypercapnia; E46 Unspecified protein-calorie malnutrition; Z76.82 Awaiting organ transplant status; J43.9 Emphysema, unspecified; Z87.891 Personal history of nicotine dependence; R29.898 Other symptoms and signs involving the musculoskeletal system; Z99.81 Dependence on supplemental oxygen; F41.8 Other specified anxiety disorders; J93.82 Other air leak; R91.8 Other nonspecific abnormal finding of lung field; Z79.899 Other long term (current) drug therapy; Z79.51 Long term (current) use of inhaled steroids
CPT/HCPCS: 36415; 36600; 71045; 71250; 74177; 80053; 82805; 82948; 83735; 85025; 87426; 93005; 94640; 96360; 96361; 96374; 97161; 97165; 99285; A9270; C9803; G0378; G0379; J1170; J1650; J7030; Q9967

== ENCOUNTER 2022-06-28 17:51 | Inpatient (IN) | payer OTHER, SELFPAY ==
[2022-06-28] VITALS (33 sets, daily range): BP systolic 98–123; BP diastolic 70–85; PULSE 0–112; RESP 15–29; TEMP 36.4–36.5; O2SAT 89–100; BMI 14.8
--- NOTE | ~2022-06-28 | XR_ITS ---
EXAMINATION: XR chest 1V portable DATE: 07/03/2022 05:51 INDICATION: Chronic obstructive pulmonary disease. TECHNIQUE: A single frontal view of the chest was obtained. COMPARISON: Chest single view 06/28/2022, chest CT 12/30/2021 FINDINGS: The lungs are hyperexpanded with lucencies and architectural distortion, consistent with em physema. There is bandlike scarring in left upper lobe. No pleural effusion or pneumothorax. The hear t size is normal. IMPRESSION: 1. Severe emphysema. Reviewed, dictated and finalized at location A. IMPRESSION: 1. Severe emphysema.
--- NOTE | ~2022-06-28 | XR_ITS ---
EXAMINATION: XR chest 1V portable Exam Date/Time: 06/28/2022 18:20 CDT HISTORY: cough Comparison: 01/03/2022. RESULT: Lines, tubes, and devices: None. Lungs and pleura: Severe emphysema. Hazy opacities in the left mid and upper lung. Cardiomediastinal silhouette: Stable. Other: No acute osseous or upper abdominal finding. IMPRESSION: Right mid and upper lung opacities may represent infection, or summation artifact from overlying soft tissues. Reviewed, dictated and finalized at location K. IMPRESSION: Right mid and upper lung opacities may represent infection, or summation artifa ct from overlying soft tissues.
--- NOTE | 2022-06-28 18:07 | ECG_ITS ---
Measurements Intervals [place] Rate: 89 P: 88 [place]: 114 QRS: 86 QRSD: 89 T: 69 QT: 329 QTc: 401 Interpretive Statements SINUS RHYTHM WITH SHORT [place] INTERVAL POSSIBLE LEFT ATRIAL ENLARGEMENT BORDERLINE ECG COMPARED TO ECG 11/06/2021 00:14:52 NO SIGNIFICANT CHANGES Electronically Signed On 06-28-2022 21:13:58 CDT by Nicko Queen D.O.
[2022-06-28 18:21] LABS: Alveolar/Arterial O2 Gradient 7.3 mmHg; Base Excess ABG 6.7 mEq/l (+/-2.0); Carboxyhemoglobin 0.9 % THb (0-2.0); Fractional Inspired Oxygen 36 %; HCO3 ABG 33.9 mEq/l (22.0-26.0); Methemoglobin ABG 0.2 %THb (0-1.5); Oxygen Content ABG 18.9 %vol (16.0-22.0); Oxygen Saturation ABG 99.2 % (95.0-100.0); Oxyhemoglobin 97.5 % THb (90.0-100.0); PO2 ABG 179.8 mmHg (80.0-100.0); PO2 FiO2 Ratio Arterial Blood 4.99 %; Reduced Hemoglobin 1.4 %THb (0-5.0); Total Hemoglobin 13.5 g/dL (12.0-18.0)
[2022-06-28 18:22] LABS: Device NASAL CANNULA; Modified Allen's Test Pass; Site Drawn RIGHT RADIAL
--- NOTE | 2022-06-28 18:28 | ED.SOB ---
HPI - SOB/Dyspnea General Chief Complaint: Shortness of Breath/Dyspnea Stated Complaint: 3 Time Seen by Provider: 06/28/22 18:21 History of Present Illness HPI Narrative: 56-year-old male history of COPD with O2 dependency and recent pneumothorax presents to the emergency room with worsening of exertional dyspnea. Patient states he has been short of breath for the past 3 weeks, and is worse when he is walking around. Endorses a recent history of right-sided pneumothorax requiring a chest tube and a lengthy hospitalization. Also states that he had pneumonia 1 year ago. Related Data Home Medications Medication Instructions Recorded Confirmed albuterol sulfate 90 mcg/actuation 1 inh inhalation QID PRN Shortness 12/29/21 12/29/21 aerosol inhaler Of Breath Or Wheezing fluticasone fur. 200 mcg-umeclid 1 inh inhalation DAILY 12/29/21 12/29/21 62.5 mcg-vilant 25 mcg inhalat.powder (Trelegy Ellipta) Allergies Allergy/AdvReac Type Severity Reaction Status Date / Time No Known Allergies Allergy Verified 06/28/22 18:05 Review of Systems Review of Systems: CONSTITUTIONAL: Denies fever, chills, or sweats. EYES: Denies visual changes, redness, or discharge. ENT: Denies rhinorrhea, congestion, sore throat, or otalgia. CARDIOVASCULAR: Denies chest pain, palpitations, or edema. RESPIRATORY: Reports exertional dyspnea GASTROINTESTINAL: Denies abdominal pain, nausea, vomiting, or diarrhea. GENITOURINARY: Denies dysuria or hematuria. SKIN: Denies rash or itching. MUSCULOSKELETAL: Denies back pain, joint pain, or myalgia. NEUROLOGIC: Denies headache, numbness, dizziness, or weakness. PSYCHIATRIC: Denies anxiety or depression. [facility] Past Medical History Medical History ADD (attention deficit disorder) Asthma Chronic respiratory failure COPD (chronic obstructive pulmonary disease) COPD (chronic obstructive pulmonary disease) Depression with anxiety Depression with anxiety Surgical History Surgical History History of tonsillectomy Hx of tonsillectomy Family History Family History Sibling Depression Family history of mental disorder Family history of chronic obstructive pulmonary disease Family history of heart disease in male family member before age 55 Mother Family history of irritable bowel syndrome Hypertension Cerebrovascular accident Family history of heart disease in male family member before age 55 Father Acute myocardial infarction Family history of heart disease in male family member before age 55 Mother Hypertension Cerebrovascular accident Father Heart disease Heart attack Pulmonary disease Other No pertinent family history Social History Social History Social History: Tobacco 1ppd x 35 yrs. Lives with son. Denies alcohol or drug use. He is a full code. He nominated his son to be the individual would make medical decisions for him if he is not able. Smoking packs per day: 1 Smoking cigarettes per day: 20.0 Years smoked: 30 Smoking pack-years: 30.00 Smoking status: Former smoker Tobacco type: cigarettes Second hand tobacco smoke exposure: No Smoking end date: 02/04/21 Alcohol intake: never Substance use: never Gender identity (if verbalized by the patient): Male Spiritual care concerns: No Exam Narrative: GENERAL: Well-appearing, well-nourished, no physical limitations, and in no acute distress. HEAD: Normocephalic, atraumatic. EYES: Conjunctivae normal, PERRLA and EOMI. NECK: Supple. CHEST: Decreased breath sounds throughout HEART: Tachycardic and regular rhythm. No murmur heard. Normal peripheral pulses. EXTREMITIES: Normal range of motion. No edema. No clubbing or cyanosis SKIN: Warm, dry, no rash. No noted wounds NEURO: No
[2022-06-28 19:37] LABS: Basophils Percent Auto 0.5 % (0.2-1.2); Eosinophils Absolute Auto 0.3 K/mm3 (0-0.3); Eosinophils Percent Auto 4.2 % (0-4.4); Hematocrit 36.9 % (42.0-52.0); Hemoglobin 12.2 g/dL (14.0-18.0); Immature Granulocyte Absolute 0.02 K/mm3 (0.00-0.031); Immature Granulocyte Percent A 0.2 % (0-0.5); Lymphocytes Absolute Auto 1.08 K/mm3 (0.9-3.2); Lymphocytes Percent Auto 13.3 % (18.3-44.2); Mean Corpuscular HGB Conc 33.1 g/dl (32-36); Mean Corpuscular Hemoglobin 31.6 pg (26-34); Mean Corpuscular Volume 95.6 fl (80-100); Mean Platelet Volume 9.5 fl (7.4-10.4); Monocytes Absolute Auto 0.7 K/mm3 (0.1-0.6); Monocytes Percent Auto 8.5 % (2.6-8.5); Neutrophils Absolute Auto 5.9 K/mm3 (1.3-6.7); Neutrophils Percent Auto 73.3 % (45.5-73.1); Platelet Count Result 150 k/mm3 (150-375); Red Blood Count 3.86 M/mm3 (4.6-6.20); Red Cell Distribution Width 11.8 % (11.5-14.5); White Blood Count 8.1 K/mm3 (4.5-10.0)
[2022-06-28 19:47] LABS: Alanine Aminotransferase 21 U/L (6-50); Albumin Level 4.1 g/dL (3.5-5.1); Alkaline Phosphatase 68 U/L (38-126); Anion Gap 2 mmol/L (8-16); Aspartate Amino Transferase 22 U/L (17-59); Blood Urea Nitrogen 12 mg/dL (9-20); Calcium 8.9 mg/dL (8.4-10.2); Carbon Dioxide 37 mmol/L (22-30); Chloride 100 mmol/L (98-107); Estimated CRCL calculation 79 ml/min; Estimated Glomerular Filt Rate > 60; Glucose 140 mg/dL (65-110); Potassium 3.7 mmol/L (3.4-5.0); Sodium 139 mmol/L (137-145)
[2022-06-28 20:09] LABS: D Dimer < 0.27 ug/mL (<0.48)
[2022-06-28] MEDS: ALBUTEROL SULFATE NEB 2.5 MG/3 ML INH INHALATION (20:58)
[2022-06-28] MEDS: IPRATROPIUM BR 0.02% INH SOLN 0.5 MG/2.5 ML VIAL INHALATION (20:58)
[2022-06-28] MEDS: methylPREDNISolone SOD SUCC 125 MG VIAL IV PUSH (22:24)
--- NOTE | 2022-06-28 22:51 | ADMGEN ---
This patient, Manny Munoz, was admitted to Medical Room 346-01. Patient/family oriented to hospital policies and general routines including ID bracelet, bed and alarms, visiting hours, pain management, procedures, bathroom and other care routines, personal items, smoking policy, room service/diet, and visiting hours. Information on how to activate the Rapid Response Team has been discussed. Patient/Family are encouraged to report perceived risks to care and to ask questions if they do not understand what they are told or what they should do.
--- NOTE | 2022-06-28 23:00 | PM.IMHP ---
H&P: HPI History of Present Illness Date/Time: 06/28/22 23:00 Chief Complaint: Shortness of breath. Narrative: This is a 56-year-old male with chronic respiratory failure on home oxygen, chronic obstructive pulmonary disease, and history of pneumothorax status post mechanical pleurodesis who presented to the emergency department via EMS from home for evaluation of shortness of breath. He has chronic dyspnea on exertion however it has been much worse over the past 3 weeks. He has been using his nebulizers 3 times a day and his rescue inhaler with lesser and lesser benefit. In fact he has been using his oxygen at 4 L for the last several weeks consistently which she typically only uses with exertion. He also reports heaviness in his chest which he attributes to difficulties taking in a deep breath. His appetite has been poor and he has lost 10 lb in the last month or so, he has had some loose stools, and he has had a cough though that has not been productive. He is weak and reports pending 19 hours a day in bed the last several weeks due to feeling poorly. On arrival to the emergency department his vital signs were stable and he was afebrile. Labs were reviewed and they are reassuring. Chest x-ray showed severe emphysema and right mid and upper lung opacities which may represent infection and he is being admitted in this setting. At the time my evaluation he has no specific complaints. He denies sick contacts, dysphagia, and concerns for aspiration. Review of Systems Review of Systems: Twelve systems were reviewed. No headache. No sinus congestion or sore throat. Cough is rarely productive. No pleuritic pain. No palpitations or racing heart. No lower extremity edema or calf pain. No history of venous thromboembolism. Also over the last several weeks he has had diffuse joint stiffness and bone pain in his forearms and upper thighs. He has not had any joint redness or swelling. No rash. No blood bites or tick bites. No recent travel. No focal weakness or paresthesias. Except as documented, all other systems were reviewed and are negative. [facility] Past Medical History Medical History (Updated 06/29/22 @ 00:32 by Edwige Ly PA-C) Asthma Attention deficit disorder Chronic obstructive pulmonary disease Chronic respiratory failure Chronic respiratory failure with hypoxia Depression with anxiety History of pneumothorax Surgical History Surgical History (Updated 06/29/22 @ 00:20 by Edwige Ly PA-C) History of thoracotomy Mechanical pleurodesis. History of tonsillectomy Family History Family History Sibling Depression Family history of mental disorder Family history of chronic obstructive pulmonary disease Family history of heart disease in male family member before age 55 Mother Family history of irritable bowel syndrome Hypertension Cerebrovascular accident Family history of heart disease in male family member before age 55 Father Acute myocardial infarction Family history of heart disease in male family member before age 55 Mother Hypertension Cerebrovascular accident Father Heart disease Heart attack Pulmonary disease Other No pertinent family history Social History Social History (Updated 06/29/22 @ 00:21 by Edwige Ly PA-C) Social History: The patient lives with his son in [place]. He is a retired principal software engineer. He smoked a pack of cigarettes a day for 35 years and quit in December 2021. He denies alcohol and illicit substance abuse. Surrogate medical decision maker: Luis Munoz, son. Code status: Full code. Spiritual care concerns: No Meds Home Medications and Allergies Home Medications Medication Instructions Recorded Confirmed Type albuterol sulfate 90 mcg/actuation 2 puff inhalation QID PRN 09/06/20 02/05/21 Rx aerosol inhaler shortness of breath or wheezing #18 grams fluticasone fur. 2
[2022-06-29] VITALS (12 sets, daily range): BP systolic 103–124; BP diastolic 63–76; PULSE 66–103; RESP 18; TEMP 35.7–36.5; O2SAT 95–100
[2022-06-29] MEDS: ACETAMINOPHEN 325 MG TABLET 650 MG PO ×2 (01:12→20:22)
[2022-06-29] MEDS: ALBUTEROL SULFATE NEB 2.5 MG/3 ML INH INHALATION ×3 (01:51→14:32)
[2022-06-29] MEDS: IPRATROPIUM BR 0.02% INH SOLN 0.5 MG/2.5 ML VIAL INHALATION ×3 (01:51→14:32)
[2022-06-29 05:28] LABS: Hematocrit 38.5 % (42.0-52.0); Hemoglobin 12.3 g/dL (14.0-18.0); Mean Corpuscular HGB Conc 31.9 g/dl (32-36); Mean Corpuscular Hemoglobin 31.3 pg (26-34); Mean Platelet Volume 9.5 fl (7.4-10.4); Platelet Count Result 163 k/mm3 (150-375); Red Blood Count 3.93 M/mm3 (4.6-6.20); Red Cell Distribution Width 11.8 % (11.5-14.5); White Blood Count 5.4 K/mm3 (4.5-10.0)
[2022-06-29 05:46] LABS: Anion Gap 7 mmol/L (8-16); Blood Urea Nitrogen 12 mg/dL (9-20); CRP < 0.5 mg/dL (<1.0); Calcium 8.7 mg/dL (8.4-10.2); Carbon Dioxide 38 mmol/L (22-30); Chloride 96 mmol/L (98-107); Estimated CRCL calculation 79 ml/min; Estimated Glomerular Filt Rate > 60; Glucose 141 mg/dL (65-110); Sodium 141 mmol/L (137-145)
[2022-06-29 05:47] LABS: Erythrocyte Sedimentation Rate 17 mm/hr (0-20)
[2022-06-29] MEDS: methylPREDNISolone SOD SUCC 40 MG VIAL IV PUSH ×4 (06:17→23:31)
[2022-06-29 06:24] LABS: Procalcitonin 0.1 ng/mL
--- NOTE | 2022-06-29 07:59 | PM.IMPN ---
Progress Note: A&P Assessment and Plan (1) Abnormal chest x-ray: Code(s): R93.89 - Abnormal findings on diagnostic imaging of other specified body structures Status: Acute Assessment and Plan: Chest x-ray shows right mid and upper lung opacities which may represent infection. He is afebrile and has normal white blood cell count thus I am not sure he has an active infection however given his increasing shortness of breath and worsening cough we will continue with antibiotics. Attempt sputum for culture. Check CRP and procalcitonin. 06/29: CRP + PCT not consistent with infection, will d/c abx, f/u sputum cx for now (2) COPD with emphysema: Code(s): J43.9 - Emphysema, unspecified Status: Acute Assessment and Plan: Continue Trelegy Ellipta, pul c/s pending (3) Chest pain: Code(s): R07.9 - Chest pain, unspecified Status: Acute Assessment and Plan: Pleuritic in nature (4) Joint pain: Code(s): M25.50 - Pain in unspecified joint Status: Acute Assessment and Plan: Diffuse joint pain without gross abnormalities. 06/29: unsure of etiology, CRP/ESR WNL (5) Malnourished: Code(s): E46 - Unspecified protein-calorie malnutrition Status: Acute Assessment and Plan: Continue scheduled Ensure t.i.d. with meals. (6) Hypercapnic respiratory failure: Code(s): J96.92 - Respiratory failure, unspecified with hypercapnia Status: Acute Assessment and Plan: C/s pending to pulm, patient likely has chronic hypercapnia from ESCOPD and would benefit from nocturnal BIPAP, will start this tonight (7) Muscular deconditioning: Code(s): R29.898 - Other symptoms and signs involving the musculoskeletal system Status: Acute Assessment and Plan: PT/OT consult Plan DVT prophylaxis with Lovenox GI prophylaxis not indicated Code status full code Subjective Date/time seen: 06/29/22 07:59 Interval history: Patient states he feels about the same as when he came in. No overnight events noted. No chest pain or shortness of breath. No nausea, vomiting or diarrhea. No fevers or chills. Review of Systems Review of Systems: 12 point review of systems was assessed and was negative except as noted in the HPI Exam Narrative: General: No acute distress, alert and oriented per baseline HEENT: Atraumatic, normocephalic, mucous membranes moist CV: Regular rate and rhythm, S1, S2 Lungs: No wheezes or rhonchi, diminished at bases Abdomen: Soft, nontender, nondistended Extremities: Normal to inspection Skin: No rashes noted, no lesions or wounds seen Psych: Euthymic, normal affect Objective Data Vital Signs Vital Signs: Vital Signs - 24 hr 06/28/22 17:55 06/28/22 17:56 06/28/22 18:04 Temperature 97.5 F L 97.5 F L Pulse Rate 92 97 Respiratory Rate 24 H 20 Blood Pressure 120/81 123/85 Pulse Oximetry 100 100 100 Oxygen Delivery Nasal Cannula Nasal Cannula Oxygen Flow Rate 4 4 06/28/22 18:23 06/28/22 17:55 06/28/22 17:56 Temperature Pulse Rate 112 H 97 106 H Respiratory Rate 19 16 Blood Pressure 120/81 Pulse Oximetry 100 100 Oxygen Delivery Oxygen Flow Rate 06/28/22 18:00 06/28/22 18:02 06/28/22 18:16 Temperature Pulse Rate 100 107 H Respiratory Rate 29 H 20 18 Blood Pressure 123/85 123/83 Pulse Oximetry 100 100 100 Oxygen Delivery Oxygen Flow Rate 06/28/22 18:17 06/28/22 18:30 06/28/22 18:32 Temperature Pulse Rate 100 102 H 103 H Respiratory Rate 23 H 21 H Blood Pressure 98/80 L Pulse Oximetry 100 100 100 Oxygen Delivery Oxygen Flow Rate 06/28/22 18:46 06/28/22 18:47 06/28/22 19:00 Temperature Pulse Rate Respiratory Rate Blood Pressure 114/77 Pulse Oximetry 100 100 100 Oxygen Delivery Oxygen Flow Rate 06/28/22 19:01 06/28/22 19:28 06/28/22 19:30 Temperature Pulse Rate 0 L Respiratory Ra
[2022-06-29] MEDS: ENOXAPARIN 40 MG/0.4 ML SYRINGE SUB-Q (08:24)
[2022-06-29] MEDS: FLUTICASONE/UMECLIDIN/VILANTER 200-62.5-25 MCG ELLIPTA 1 PUFF INHALATION (09:21)
[2022-06-30] VITALS (14 sets, daily range): BP systolic 99–110; BP diastolic 67–69; PULSE 63–103; RESP 16–21; TEMP 36.4–36.7; O2SAT 96–100
--- NOTE | 2022-06-30 | ECHO_ITS ---
Patient Info Name: Manny Munoz Age: 56 years : 1965 Gender: Male Ht: 66 in Wt: 90 lbs BSA: 1.36 m2 HR: 93 bpm BP: 99 / 69 mmHg Technical Quality: Good Exam Date: 06/30/2022 1:37 PM Exam Location: [facility] Pulmonary Exam Room: [facility] Patient Status: Inpatient Admit Date: 06/28/2022 Staff Ordering Physician: Niki Medrano DO Matrix Inspector: Joellen Be RDCS Attending Provider: Niki Medrano DO Referring Physician: Mitchell CARLTON; Exam Type: CA echo doppler color flow Study Info Indications - sob HF Complete two-dimensional, color flow and Doppler transthoracic echocardiogram is performed. Summary 1. Complete two-dimensional, color flow and Doppler transthoracic echocardiogram is performed. 2. Normal LV size and wall thickness, normal LV systolic and diastolic function, ejection fraction about 60%. No significant valvular abnormality. Trace TR, RVSP 35 mmHg. Left Ventricle Left ventricular chamber dimension is normal. Left ventricular systolic function is normal, estimated at 55-60%. There is no increased left ventricular wall thickness. The left ventricular diastolic function is normal. Right Ventricle Right ventricular chamber dimension is normal. Right ventricular systolic function is normal. Left Atria Left atrial chamber dimension is normal. Right Atria Right atrial chamber dimension is normal. Aortic Valve The aortic valve is normal. There is no aortic valve sclerosis. There is no aortic valve stenosis. There is no aortic valve regurgitation. Pulmonic Valve The pulmonic valve is normal. There is trace pulmonic regurgitation. Mitral Valve The mitral valve has normal leaflets. There is no mitral valve stenosis. There is no mitral valve regurgitation. Tricuspid Valve The tricuspid valve leaflets are normal. There is trace tricuspid valve regurgitation. No pulmonary hypertension, estimated pulmonary arterial systolic pressure is 35 mmHg. Pericardium/Pleural The pericardium appears normal. There is no pericardial effusion. Inferior Vena Cava Normal inferior vena cava with >50% collapse upon inspiration consistent with normal right atrial pressure, 10 mmHg. Aorta The aortic root size at the sinus of Valsalva is normal. Left Ventricular Outflow Tract Name Value Normal LVOT 2D LVOT Diameter 2.0 cm Pulmonic Valve Name Value Normal PV Doppler PV Peak Gradient 3 mmHg Mitral Valve Name Value Normal MV Doppler MV Decel Tarrant 433 cm/s2 MV PHT 48 ms MV Area (PHT) 4.5 cm2 4.0-5.0 MV Diastolic Function -
[2022-06-30] MEDS: IPRATROPIUM BR 0.02% INH SOLN 0.5 MG/2.5 ML VIAL INHALATION ×4 (01:20→20:36)
[2022-06-30] MEDS: ALBUTEROL SULFATE NEB 2.5 MG/3 ML INH INHALATION ×4 (01:20→20:36)
--- NOTE | 2022-06-30 01:22 | PCRCNOTE ---
Window of time for administration has passed. See next scheduled administration.
[2022-06-30] MEDS: methylPREDNISolone SOD SUCC 40 MG VIAL IV PUSH ×3 (06:03→17:21)
[2022-06-30 07:25] LABS: Alveolar/Arterial O2 Gradient 47.3 mmHg; Base Excess ABG 4.3 mEq/l (+/-2.0); Fractional Inspired Oxygen 40 %; HCO3 ABG 30.2 mEq/l (22.0-26.0); Oxygen Content ABG 18.2 %vol (16.0-22.0); Oxygen Saturation ABG 99.2 % (95.0-100.0); Oxyhemoglobin 97.6 % THb (90.0-100.0); PCO2 ABG 50.7 mmHg (35.0-45.0); PO2 ABG 179.6 mmHg (80.0-100.0); PO2 FiO2 Ratio Arterial Blood 4.49 %; pH ABG 7.393 (7.350-7.450)
[2022-06-30 07:26] LABS: Device BIPAP; Modified Allen's Test Pass; Site Drawn RIGHT RADIAL
[2022-06-30 07:27] LABS: Expiratory Pressure 5 cmH2O; Inspiratory Pressure 10 cmH2O
[2022-06-30] MEDS: FLUTICASONE/UMECLIDIN/VILANTER 200-62.5-25 MCG ELLIPTA 1 PUFF INHALATION (08:34)
[2022-06-30] MEDS: ENOXAPARIN 40 MG/0.4 ML SYRINGE SUB-Q (08:52)
--- NOTE | 2022-06-30 12:37 | PM.CNPUL ---
Assessment and Plan Assessment and plan (1) Hypercapnic respiratory failure: Code(s): J96.92 - Respiratory failure, unspecified with hypercapnia Status: Acute Assessment and Plan: He has severe advanced emphysema with alpha-1 deficiency, not on treatment at this time. He had a tension pneumothorax in Dec with surgery, now re-admitted with acute on chronic respiratory failure, still deconditioned from his recent ptx and admission. He does not appear to have pneumonia, and does not have symptoms that suggested a COPD exacerbation. Echo today is not back yet, and I am concerned about ischemia as a cause of his shortness of breath and tachycardia with limited movement. Will check a chest CT, BNP and consider further investigation into possible ischemia. I agree with his COPD management. Will continue to follow with you. History of Present Illness History of Present Illness Consult date: 06/30/22 Requesting physician: Niki Medrano DO Reason for consult: COPD Chief complaint: copd exacerbation Narrative: patient was seen at 12:40 pm Jun 30, 2022 NEW: Manny Munoz is a 56 year old man with COPD who was admitted with increased shortness of breath and RUL infiltrates. His son Luis is here. He has alpha-1 deficiency, has not qualified for treatment as his alpha-1 levels are just above the lower end of normal. His supervisor plastic sheets is Dr Isma Ng at [facility], who has been following his alpha-1 levels, and managing him as an out-patient. The patient has not been well enough to have repeat PFTs and 6 min walk during the last year. He has been on O2 for over a year, and he has a history of multiple [ulmonary nodules which improved on repeat testing. He is maintained on Trelegy one puff a day and prn albuterol. The patient was a heavy smoker, quit tobacco 5 months ago. He completed a full course of cardiopulmonary rehab at [facility] in Oct 2021. He had an admission in the spring at [facility], December 30 for a spontaneous pneumothorax. Two R chest tubes were placed, and he was transferred to [place] for pleurodesis. Hr was in the hospital for several weeks, and has not recovered completely. He says that he had 3 weeks of intense fatigue, exhaustion, with increased sleep. He was so short of breath of breath that walking a few feet exhausted him. He did not have change in his pulmonary symptoms such as sputum production, as he does not usually cough much sputum at baseline. He did not have a fever or a sore throat. All his infectious markers are normal, as well as his procalcitonin and CRP. Tobacco: Started age 18 until early October 2021. He smoked 1 pack per day for total of 35 pack years.? Never vapes. No illicit drug use, asbestos work, professional painting or steel mill oiler.? He worked as a security software engineer.? He has been disabled for over a year. 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 The patient finished cardiopulmonary rehabilitation in October of 2020 but has not been feeling well enough to maintain this exercise program recently. @@@@@@@@@@@@@@@@ severe centrilobular and paraseptal bulla that her stable.? There is a right upper lobe slightly larger nodule at 11.3 mm.? There is a right lower lobe nodule minimally increased from 8.5 mm to 9.3 mm.? And there is a left lower lobe nodule increased from 11.6 mm to 15 mm.? In addition there are many stable nodules of 8.2 mm right upper lobe, 10 mm right upper lobe, a new right middle lobe density at 43 mm, 6.6 mm anterior right upper lobe nodule 2 left lower lobe nodules between 3 and 5 mm, diminished linear density left upper lobe, a 4 mm left upper lobe nodule and a 3 mm left upper no nodule. ? The patient was scheduled to have a CT PET on 12/31 21 to assess these nodules. Review of Systems Review of Systems: All systems reviewed & are unremarkable except as noted in HPI and below [facility] Past Medical History Medical History (Reviewed 06/30/22 @ 12:39 by Donny Zuluaga
--- NOTE | 2022-06-30 17:56 | PM.IMPN ---
Progress Note: A&P Assessment and Plan (1) Abnormal chest x-ray: Code(s): R93.89 - Abnormal findings on diagnostic imaging of other specified body structures Status: Acute Assessment and Plan: Chest x-ray shows right mid and upper lung opacities which may represent infection. He is afebrile and has normal white blood cell count thus I am not sure he has an active infection however given his increasing shortness of breath and worsening cough we will continue with antibiotics. Attempt sputum for culture. Check CRP and procalcitonin. 06/29: CRP + PCT not consistent with infection, will d/c abx, f/u sputum cx for now 06/30: Discussed chest x-ray abnormalities with Dr. Chanel, suspect these are scarring from previous pneumothorax earlier this year that required pleurodesis (2) COPD with emphysema: Code(s): J43.9 - Emphysema, unspecified Status: Acute Assessment and Plan: Continue Trelegy Ellipta, pulm c/s pending 06/30: Appreciate pulmonology consultation, full recommendations pending (3) Chest pain: Code(s): R07.9 - Chest pain, unspecified Status: Acute Assessment and Plan: Pleuritic in nature (4) Joint pain: Code(s): M25.50 - Pain in unspecified joint Status: Acute Assessment and Plan: Diffuse joint pain without gross abnormalities. 06/29: Unsure of etiology, CRP/ESR WNL 06/30: Appears stable, no further workup necessary at this time, will defer further management to outpatient PCP (5) Malnourished: Code(s): E46 - Unspecified protein-calorie malnutrition Status: Acute Assessment and Plan: Continue scheduled Ensure t.i.d. with meals. (6) Hypercapnic respiratory failure: Code(s): J96.92 - Respiratory failure, unspecified with hypercapnia Status: Acute Assessment and Plan: C/s pending to pulm, patient likely has chronic hypercapnia from ESCOPD and would benefit from nocturnal BIPAP, will start this tonight 06/30: Hypercapnic respiratory failure improved with BiPAP, appreciate pulmonology consultation, echo pending to evaluate for pulmonary hypertension as well as cor pulmonale (7) Muscular deconditioning: Code(s): R29.898 - Other symptoms and signs involving the musculoskeletal system Status: Acute Assessment and Plan: PT/OT consult Plan DVT prophylaxis with Lovenox GI prophylaxis not indicated Code status full code Subjective Date/time seen: 06/30/22 17:56 Interval history: Patient states he feels a little better than yesterday. He tolerated the BiPAP well overnight. No overnight events noted. No chest pain or shortness of breath. No nausea, vomiting or diarrhea. No fevers or chills. Review of Systems Review of Systems: 12 point review of systems was assessed and was negative except as noted in the HPI Exam Narrative: General: No acute distress, alert and oriented per baseline HEENT: Atraumatic, normocephalic, mucous membranes moist CV: Regular rate and rhythm, S1, S2 Lungs: Diminished breath sounds throughout, no wheeze, rhonchi or crackles Abdomen: Soft, nontender, nondistended Extremities: Normal to inspection Skin: No rashes noted, no lesions or wounds seen Psych: Euthymic, normal affect Objective Data Vital Signs Vital Signs: Vital Signs - 24 hr 06/29/22 20:04 06/29/22 20:00 06/30/22 01:33 Temperature 97.4 F L Pulse Rate 93 93 93 Respiratory Rate 18 18 19 Blood Pressure 121/64 Pulse Oximetry 95 95 99 Oxygen Delivery Nasal Cannula BiPAP Oxygen Flow Rate 2 06/30/22 01:15 06/30/22 01:36 06/30/22 05:24 Temperature 97.5 F L Pulse Rate 89 89 64 Respiratory Rate 18 18 21 H Blood Pressure 99/69 L Pulse Oximetry 100 Oxygen Delivery Oxygen Flow Rate 06/30/22 08:39 06/30/22 08:52 06/30/22 14:41 Temperature Pulse Rate 63 96 Respiratory Rate 20 20 Blood Pressure Pulse Oximetry 100 Oxygen Delivery N
[2022-07-01] VITALS (15 sets, daily range): BP systolic 97–111; BP diastolic 65–70; PULSE 84–110; RESP 16–24; TEMP 35.8–37.1; O2SAT 96–100; BMI 15.7
[2022-07-01] MEDS: methylPREDNISolone SOD SUCC 40 MG VIAL IV PUSH ×2 (00:11→06:12)
[2022-07-01] MEDS: IPRATROPIUM BR 0.02% INH SOLN 0.5 MG/2.5 ML VIAL INHALATION ×4 (02:07→21:18)
[2022-07-01] MEDS: ALBUTEROL SULFATE NEB 2.5 MG/3 ML INH INHALATION ×4 (02:07→21:18)
[2022-07-01 05:45] LABS: Basophils Percent Auto 0.1 % (0.2-1.2); Hematocrit 36.3 % (42.0-52.0); Hemoglobin 11.9 g/dL (14.0-18.0); Immature Granulocyte Absolute 0.14 K/mm3 (0.00-0.031); Immature Granulocyte Percent A 0.9 % (0-0.5); Lymphocytes Absolute Auto 0.31 K/mm3 (0.9-3.2); Lymphocytes Percent Auto 1.9 % (18.3-44.2); Mean Corpuscular HGB Conc 32.8 g/dl (32-36); Mean Corpuscular Hemoglobin 31.7 pg (26-34); Mean Corpuscular Volume 96.8 fl (80-100); Mean Platelet Volume 9.8 fl (7.4-10.4); Monocytes Absolute Auto 0.6 K/mm3 (0.1-0.6); Monocytes Percent Auto 3.9 % (2.6-8.5); Neutrophils Absolute Auto 15.3 K/mm3 (1.3-6.7); Neutrophils Percent Auto 93.2 % (45.5-73.1); Platelet Count Result 158 k/mm3 (150-375); Red Blood Count 3.75 M/mm3 (4.6-6.20); Red Cell Distribution Width 12.2 % (11.5-14.5); White Blood Count 16.4 K/mm3 (4.5-10.0)
[2022-07-01 05:56] LABS: Anion Gap 7 mmol/L (8-16); Blood Urea Nitrogen 18 mg/dL (9-20); Calcium 8.7 mg/dL (8.4-10.2); Carbon Dioxide 31 mmol/L (22-30); Chloride 98 mmol/L (98-107); Estimated CRCL calculation 85 ml/min; Estimated Glomerular Filt Rate > 60; Glucose 148 mg/dL (65-110); Potassium 4.2 mmol/L (3.4-5.0); Sodium 136 mmol/L (137-145)
[2022-07-01 06:05] LABS: NT Pro B Type Natriuretic Pept 435 pg/mL (5-100)
--- NOTE | 2022-07-01 08:22 | PM.IMPN ---
Progress Note: A&P Assessment and Plan (1) Abnormal chest x-ray: Code(s): R93.89 - Abnormal findings on diagnostic imaging of other specified body structures Status: Acute Assessment and Plan: Chest x-ray shows right mid and upper lung opacities which may represent infection. He is afebrile and has normal white blood cell count thus I am not sure he has an active infection however given his increasing shortness of breath and worsening cough we will continue with antibiotics. Attempt sputum for culture. Check CRP and procalcitonin. 06/29: CRP + PCT not consistent with infection, will d/c abx, f/u sputum cx for now 06/30: Discussed chest x-ray abnormalities with Dr. Chanel, suspect these are scarring from previous pneumothorax earlier this year that required pleurodesis 07/01: Unchanged (2) COPD with emphysema: Code(s): J43.9 - Emphysema, unspecified Status: Acute Assessment and Plan: Continue Trelegy Ellipta, pulm c/s pending 06/30: Appreciate pulmonology consultation, full recommendations pending 07/01: F/u pulm recs (3) Chest pain: Code(s): R07.9 - Chest pain, unspecified Status: Acute Assessment and Plan: Pleuritic in nature, resolved (4) Joint pain: Code(s): M25.50 - Pain in unspecified joint Status: Acute Assessment and Plan: Diffuse joint pain without gross abnormalities. 06/29: Unsure of etiology, CRP/ESR WNL 06/30: Appears stable, no further workup necessary at this time, will defer further management to outpatient PCP (5) Malnourished: Code(s): E46 - Unspecified protein-calorie malnutrition Status: Acute Assessment and Plan: Continue scheduled Ensure t.i.d. with meals. (6) Hypercapnic respiratory failure: Code(s): J96.92 - Respiratory failure, unspecified with hypercapnia Status: Acute Assessment and Plan: C/s pending to pulm, patient likely has chronic hypercapnia from ESCOPD and would benefit from nocturnal BIPAP, will start this tonight 06/30: Hypercapnic respiratory failure improved with BiPAP, appreciate pulmonology consultation, echo pending to evaluate for pulmonary hypertension as well as cor pulmonale 07/01: Pulm concerned for ischemia underlying symptoms, echo pending, consider cardio consult (7) Muscular deconditioning: Code(s): R29.898 - Other symptoms and signs involving the musculoskeletal system Status: Acute Assessment and Plan: PT/OT consult (8) [id number] deficiency: Code(s): E88.01 - [id number] deficiency Status: Acute Assessment and Plan: Likely the etiology of his COPD, see above for management Pulm consult with further details noted Plan DVT prophylaxis with Lovenox GI prophylaxis not indicated Code status full code Subjective Date/time seen: 07/01/22 08:22 Interval history: Patient states he feels much more energetic than yesterday. No overnight events noted. No chest pain or shortness of breath. No nausea, vomiting or diarrhea. No fevers or chills. Review of Systems Review of Systems: 12 point review of systems was assessed and was negative except as noted in the HPI Exam Narrative: General: No acute distress, alert and oriented per baseline HEENT: Atraumatic, normocephalic, mucous membranes moist CV: Regular rate and rhythm, S1, S2 Lungs: Diminished breath sounds throughout, no wheeze, rhonchi or crackles Abdomen: Soft, nontender, nondistended Extremities: Normal to inspection Skin: No rashes noted, no lesions or wounds seen Psych: Euthymic, normal affect Objective Data Vital Signs Vital Signs: Vital Signs - 24 hr 06/30/22 08:39 06/30/22 08:52 06/30/22 14:41 Temperature Pulse Rate 63 96 Respiratory Rate 20 20 Blood Pressure Pulse Oximetry 100 Oxygen Delivery Nasal Cannula Oxygen Flow Rate 2 06/30/22 14:56 06/30/22 14:00 06/30/22 20:39 Tempera
[2022-07-01] MEDS: ENOXAPARIN 40 MG/0.4 ML SYRINGE SUB-Q (08:59)
[2022-07-01] MEDS: FLUTICASONE/UMECLIDIN/VILANTER 200-62.5-25 MCG ELLIPTA 1 PUFF INHALATION (09:23)
--- NOTE | 2022-07-01 09:42 | PM.PNPUL ---
Progress Note: A&P Assessment and Plan (1) Hypercapnic respiratory failure: Code(s): J96.92 - Respiratory failure, unspecified with hypercapnia Status: Acute (2) COPD exacerbation: Code(s): J44.1 - Chronic obstructive pulmonary disease with (acute) exacerbation Status: Acute Assessment and Plan: A 56-year-old man with end-stage emphysema, chronic hypoxemic hypercapnic respiratory failure on supplemental oxygen at home a previous secondary spontaneous pneumothorax status post pleurodesis presented with worsening shortness of breath primarily on exertion. He had no other symptoms such as cough sputum production fever or chills. On diagnostic studies, the chest x-ray showed small pleural effusions bilaterally and also apical infiltrates which could indicate congestive heart failure. The BNP was also elevated. The patient has been treated with IV steroids and BiPAP support at night. On physical exam he has no evidence of wheezing. Plan: I would DC the IV steroids. Continue with nebulized short-acting bronchodilators, BiPAP support at night supplemental oxygen, DVT prophylaxis; Monitor I/Os, consider gentle diuresis if BP allows it. await Echo. (3) COPD with emphysema: Code(s): J43.9 - Emphysema, unspecified Status: Acute Subjective Date/time seen: 07/01/22 09:42 This 56-year-old man has had end-stage emphysema with chronic hypoxemic hypercapnic respiratory failure on supplemental oxygen at home. 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 Reportedly he did meet the criteria for that. No previous pulmonary function testing is available. Chest CTs shows severe confluent centrilobular emphysema with formation of bullae especially in the lung bases. Patient had a pneumothorax and was treated with mechanical pleurodesis approximately 6 months ago. He has been on supplemental oxygen 2 liters/minute at rest and 4 L with activities. He presented with a shortness of breath. He had no cough sputum production fever chills or wheezing. He has had 3 hospitalizations over the last 2 years for COPD related issues. He has been on Trelegy inhaler and short-acting bronchodilators. he has been treated with IV steroids for possible COPD exacerbation. admission blood gases showed chronic respiratory acidosis well compensated. Patient has been treated with a BiPAP support at night 10 over fight. Today he feels little better. Review of Systems Review of Systems: 12 point review of systems was assessed and was negative except as noted in the HPI Exam Narrative: GENERAL APPEARANCE: Well developed, well nourished, alert and cooperative, and appears to be in mild to moderate respiratory distress while on supplemental oxygen SKIN: Inspection of the skin reveals no rashes, ulcerations or petechiae. HEENT: Sclerae anicteric and conjunctivae pink and moist. Extraocular movements were intact and pupils were equal, round, and reactive to light. The oral mucosa, hard and soft palate, tongue and posterior pharynx were normal. NECK: Supple. There was no thyroid enlargement, and no tenderness, or masses were felt. CHEST: Normal AP diameter and normal contour without any kyphoscoliosis. LUNGS: Auscultation of the lungs revealed distant breath sounds bilaterally no wheezing CARDIAC: There was a regular rate and rhythm without any murmurs, gallops, rubs. ABDOMEN: Soft and nontender with normal bowel sounds. There was no organomegaly. LYMPH NODES: No lymphadenopathy was appreciated in the neck. EXTREMITIES: No cyanosis, clubbing or edema. NEUROLOGIC: Alert and oriented x 3. Normal affect. Objective Data Vital Signs Vital Signs: Vital Signs - 24 hr 06/30/22 14:41 06/30/22 14:56 06/30/22 14:00 Temperature 36.6 C Pulse Rate 96 103 H 86 Pulse Rate [With Activity During Therapy Session] Respiratory Rate 20 20 20 Blood Pressure 106/67 Pulse Oximetry 98
[2022-07-02] VITALS (15 sets, daily range): BP systolic 101–105; BP diastolic 61–62; PULSE 74–108; RESP 16–22; TEMP 36.2–36.6; O2SAT 95–100
[2022-07-02] MEDS: IPRATROPIUM BR 0.02% INH SOLN 0.5 MG/2.5 ML VIAL INHALATION ×4 (02:07→19:48)
[2022-07-02] MEDS: ALBUTEROL SULFATE NEB 2.5 MG/3 ML INH INHALATION ×4 (02:07→19:48)
[2022-07-02 05:31] LABS: Basophils Percent Auto 0.2 % (0.2-1.2); Eosinophils Percent Auto 0.1 % (0-4.4); Hematocrit 35.2 % (42.0-52.0); Hemoglobin 11.2 g/dL (14.0-18.0); Immature Granulocyte Absolute 0.07 K/mm3 (0.00-0.031); Immature Granulocyte Percent A 0.6 % (0-0.5); Lymphocytes Absolute Auto 1.36 K/mm3 (0.9-3.2); Lymphocytes Percent Auto 11.8 % (18.3-44.2); Mean Corpuscular HGB Conc 31.8 g/dl (32-36); Mean Corpuscular Hemoglobin 31.5 pg (26-34); Mean Corpuscular Volume 98.9 fl (80-100); Mean Platelet Volume 9.6 fl (7.4-10.4); Monocytes Absolute Auto 1.2 K/mm3 (0.1-0.6); Monocytes Percent Auto 10.6 % (2.6-8.5); Neutrophils Absolute Auto 8.9 K/mm3 (1.3-6.7); Neutrophils Percent Auto 76.7 % (45.5-73.1); Platelet Count Result 157 k/mm3 (150-375); Red Blood Count 3.56 M/mm3 (4.6-6.20); Red Cell Distribution Width 12.6 % (11.5-14.5); White Blood Count 11.6 K/mm3 (4.5-10.0)
[2022-07-02 05:43] LABS: Anion Gap 3 mmol/L (8-16); Blood Urea Nitrogen 17 mg/dL (9-20); Calcium 8.4 mg/dL (8.4-10.2); Carbon Dioxide 33 mmol/L (22-30); Chloride 99 mmol/L (98-107); Estimated CRCL calculation 85 ml/min; Estimated Glomerular Filt Rate > 60; Glucose 92 mg/dL (65-110); Potassium 3.9 mmol/L (3.4-5.0); Sodium 135 mmol/L (137-145)
[2022-07-02] MEDS: FLUTICASONE/UMECLIDIN/VILANTER 200-62.5-25 MCG ELLIPTA 1 PUFF INHALATION (09:16)
--- NOTE | 2022-07-02 09:31 | PM.PNPUL ---
Progress Note: A&P Assessment and Plan (1) Hypercapnic respiratory failure: Code(s): J96.92 - Respiratory failure, unspecified with hypercapnia Status: Acute Assessment and Plan: 56-year-old man with COPD, severe emphysema with chronic hypoxemic respiratory failure presented with increasing shortness of breath on exertion. Chest imaging studies have shown new small pleural effusions bilaterally and possible lung congestion especially in the upper lobes. The patient has been treated with BiPAP support and antibiotics as well as short-acting bronchodilators. IV steroids were discontinued as he had no evidence of wheezing. on arterial blood gases he had well-compensated chronic respiratory acidosis. The patient seems to be responding to BiPAP support at night. Added IV Lasix 20 mg for possible fluid overload given the small pleural effusions on chest x-ray. Patient is followed by pulmonary services at [facility]. He has been considered for home ventilatory support according to the patient through his sunday school missionary at [facility]. Also efforts are underway by his sunday school missionary to start the patient on antitrypsin replacement therapy. repeat chest x-ray in a.m. (2) COPD exacerbation: Code(s): J44.1 - Chronic obstructive pulmonary disease with (acute) exacerbation Status: Acute (3) Chronic respiratory failure with hypoxia: Code(s): J96.11 - Chronic respiratory failure with hypoxia Status: Acute (4) COPD with emphysema: Code(s): J43.9 - Emphysema, unspecified Status: Acute (5) Xzviz-7-bgxlellxqve deficiency: Code(s): E88.01 - Knopw-4-lsxuwmqmrkb deficiency Status: Acute Subjective Date/time seen: 07/02/22 09:31 Patient without any new respiratory symptoms. Used BiPAP support last night. Has no cough chest pain or wheezing. He has no lower extremity edema. Has been off IV steroids. Review of Systems Review of Systems: 12 point review of systems was assessed and was negative except as noted in the HPI Exam Narrative: GENERAL APPEARANCE: Well developed, well nourished, alert and cooperative, and appears to be in mild to moderate respiratory distress while on supplemental oxygen SKIN: Inspection of the skin reveals no rashes, ulcerations or petechiae. HEENT: Sclerae anicteric and conjunctivae pink and moist. Extraocular movements were intact and pupils were equal, round, and reactive to light. The oral mucosa, hard and soft palate, tongue and posterior pharynx were normal. NECK: Supple. There was no thyroid enlargement, and no tenderness, or masses were felt. CHEST: Normal AP diameter and normal contour without any kyphoscoliosis. LUNGS: Auscultation of the lungs revealed distant breath sounds bilaterally no wheezing CARDIAC: There was a regular rate and rhythm without any murmurs, gallops, rubs. ABDOMEN: Soft and nontender with normal bowel sounds. There was no organomegaly. LYMPH NODES: No lymphadenopathy was appreciated in the neck. EXTREMITIES: No cyanosis, clubbing or edema. NEUROLOGIC: Alert and oriented x 3. Normal affect. Objective Data Vital Signs Vital Signs: Vital Signs - 24 hr 07/01/22 09:40 07/01/22 14:18 07/01/22 14:31 Temperature Pulse Rate 95 98 103 H Respiratory Rate 18 18 18 Blood Pressure Pulse Oximetry Oxygen Delivery Oxygen Flow Rate 07/01/22 14:00 07/01/22 20:35 07/01/22 20:00 Temperature 35.8 C L 36.2 C L Pulse Rate 106 H 86 86 Respiratory Rate 18 20 20 Blood Pressure 111/65 104/70 Pulse Oximetry 99 98 98 Oxygen Delivery Nasal Cannula Oxygen Flow Rate 2 07/01/22 21:23 07/01/22 21:23 07/01/22 21:38 Temperature Pulse Rate 90 91 Respiratory Rate 16 16 Blood Pressure Pulse Oximetry 98 Oxygen Delivery Nasal Cannula Oxygen Flow Rate 2 07/02/22 00:21 07/02/22 02:10 07/02/22 02:20 Temperature Pulse Rate 91 97 96 Respiratory Rate 20 16 16 Blood Pressure Pu
[2022-07-02] MEDS: ENOXAPARIN 40 MG/0.4 ML SYRINGE SUB-Q (09:48)
[2022-07-02] MEDS: FUROSEMIDE INJ 40 MG/4 ML VIAL 20 MG IV PUSH (09:48)
--- NOTE | 2022-07-02 12:37 | PM.IMPN ---
Progress Note: A&P Assessment and Plan (1) Abnormal chest x-ray: Code(s): R93.89 - Abnormal findings on diagnostic imaging of other specified body structures Status: Acute (2) COPD with emphysema: Code(s): J43.9 - Emphysema, unspecified Status: Acute (3) Chest pain: Code(s): R07.9 - Chest pain, unspecified Status: Acute (4) Joint pain: Code(s): M25.50 - Pain in unspecified joint Status: Acute (5) Malnourished: Code(s): E46 - Unspecified protein-calorie malnutrition Status: Acute (6) Hypercapnic respiratory failure: Code(s): J96.92 - Respiratory failure, unspecified with hypercapnia Status: Acute (7) Muscular deconditioning: Code(s): R29.898 - Other symptoms and signs involving the musculoskeletal system Status: Acute (8) Nbcee-5-jdqybkexkud deficiency: Code(s): E88.01 - Meskf-4-hnwrkgmjpbs deficiency Status: Acute Plan 07/02/22 pt doing better diuresing well breathing improved now on 2L pulm following BIPAP @ night cont current care am labs ordered Subjective Date/time seen: 07/02/22 12:37 pt doing better, urinating a lot requests additional urinal Review of Systems Review of Systems: All systems reviewed & are unremarkable except as noted in HPI and below Exam Narrative: GEN: NAD, AAOx3, cooperative frail malnourished appearing HEENT: NCAT, MMM, EOMI Neck: no JVD Heart: S1S2 RRR Lungs: CTA B/l poor air movement dyspnea w speaking Abd: soft, NT, ND, bowel sounds normoactive Ext: moves all, no cyanosis, no clubbing, no edema Neuro: AAOx3 CN intact no focal deficits Psych: mood and affect congruent Objective Data Vital Signs Vital Signs: Vital Signs - 24 hr 07/01/22 14:18 07/01/22 14:31 07/01/22 14:00 Temperature 96.5 F L Pulse Rate 98 103 H 106 H Respiratory Rate 18 18 18 Blood Pressure 111/65 Pulse Oximetry 99 Oxygen Delivery Oxygen Flow Rate 07/01/22 20:35 07/01/22 20:00 07/01/22 21:23 Temperature 97.2 F L Pulse Rate 86 86 90 Respiratory Rate 20 20 16 Blood Pressure 104/70 Pulse Oximetry 98 98 Oxygen Delivery Nasal Cannula Oxygen Flow Rate 2 07/01/22 21:23 07/01/22 21:38 07/02/22 00:21 Temperature Pulse Rate 91 91 Respiratory Rate 16 20 Blood Pressure Pulse Oximetry 98 97 Oxygen Delivery Nasal Cannula BiPAP Oxygen Flow Rate 2 07/02/22 02:10 07/02/22 02:20 07/02/22 02:20 Temperature Pulse Rate 97 96 97 Respiratory Rate 16 16 19 Blood Pressure Pulse Oximetry 95 Oxygen Delivery BiPAP Oxygen Flow Rate 07/02/22 04:26 07/02/22 09:16 07/02/22 09:18 Temperature 97.9 F Pulse Rate 74 88 Respiratory Rate 18 18 Blood Pressure 105/62 Pulse Oximetry 100 96 Oxygen Delivery Nasal Cannula Oxygen Flow Rate 2 07/02/22 09:28 Temperature Pulse Rate 87 Respiratory Rate 18 Blood Pressure Pulse Oximetry Oxygen Delivery Oxygen Flow Rate Intake/Output Intake/Output: Intake & Output 06/29/22 06/30/22 07/01/22 07/02/22 23:59 23:59 23:59 23:59 Intake Total 849 516 3007 600 Output Total 925 1200 1425 575 Balance 45 -240 585 25 Meds/Results Medications: Active Medications Generic Name Dose Route Start Last Admin Trade Name Gerryq PRN Reason Stop Dose Admin Acetaminophen 650 mg 06/29/22 00:55 06/29/22 20:22 Acetaminophen 325 Mg Tablet PO 650 mg Q6H PRN Administration Mild Pain (1-3) or Fever Albuterol 2.5 mg 06/29/22 02:00 07/02/22 09:15 Albuterol Sulfate Neb 2.5 Mg/3 Ml Inh INHALATION 2.5 mg Q6HRT LISA Administration Enoxaparin Sodium 40 mg 06/29/22 09:00 07/02/22 09:48 Enoxaparin 40 Mg/0.4 Ml Syringe SUB-Q 40 mg DAILY LISA Administration Fluticasone/Umeclidinium/Vilanterol 1 puff 06/29/22 08:00 07/02/22 09:16 Fluticasone/Umeclidin/Vilanter 200-62.5-25 Mcg Ellipta INHALATION 1 puff DAILYRT LISA Administration Ipratropium [place] 0
[2022-07-03] VITALS (8 sets, daily range): BP systolic 98–125; BP diastolic 69–71; PULSE 72–96; RESP 16–19; TEMP 36.1–36.6; O2SAT 97–100
[2022-07-03] MEDS: ALBUTEROL SULFATE NEB 2.5 MG/3 ML INH INHALATION ×3 (02:25→15:08)
[2022-07-03] MEDS: IPRATROPIUM BR 0.02% INH SOLN 0.5 MG/2.5 ML VIAL INHALATION ×3 (02:25→15:08)
[2022-07-03 03:38] LABS: Pneumococcal Antigen Urine Not Detected (Not Detected)
[2022-07-03 05:26] LABS: Basophils Percent Auto 0.1 % (0.2-1.2); Eosinophils Absolute Auto 0.3 K/mm3 (0-0.3); Eosinophils Percent Auto 4.6 % (0-4.4); Hematocrit 37.5 % (42.0-52.0); Hemoglobin 12.2 g/dL (14.0-18.0); Immature Granulocyte Absolute 0.08 K/mm3 (0.00-0.031); Immature Granulocyte Percent A 1.1 % (0-0.5); Lymphocytes Absolute Auto 1.71 K/mm3 (0.9-3.2); Lymphocytes Percent Auto 24.5 % (18.3-44.2); Mean Corpuscular HGB Conc 32.5 g/dl (32-36); Mean Corpuscular Hemoglobin 32.1 pg (26-34); Mean Corpuscular Volume 98.7 fl (80-100); Mean Platelet Volume 9.3 fl (7.4-10.4); Monocytes Absolute Auto 0.7 K/mm3 (0.1-0.6); Monocytes Percent Auto 10.6 % (2.6-8.5); Neutrophils Absolute Auto 4.1 K/mm3 (1.3-6.7); Neutrophils Percent Auto 59.1 % (45.5-73.1); Platelet Count Result 152 k/mm3 (150-375); Red Cell Distribution Width 12.5 % (11.5-14.5)
[2022-07-03 05:38] LABS: Anion Gap 5 mmol/L (8-16); Blood Urea Nitrogen 19 mg/dL (9-20); Calcium 8.7 mg/dL (8.4-10.2); Carbon Dioxide 34 mmol/L (22-30); Chloride 96 mmol/L (98-107); Estimated CRCL calculation 85 ml/min; Estimated Glomerular Filt Rate > 60; Glucose 93 mg/dL (65-110); Potassium 4.1 mmol/L (3.4-5.0); Sodium 135 mmol/L (137-145)
[2022-07-03] MEDS: FLUTICASONE/UMECLIDIN/VILANTER 200-62.5-25 MCG ELLIPTA 1 PUFF INHALATION (08:02)
[2022-07-03] MEDS: ENOXAPARIN 40 MG/0.4 ML SYRINGE SUB-Q (08:47)
--- NOTE | 2022-07-03 09:29 | PM.PNPUL ---
Progress Note: A&P Assessment and Plan (1) Hypercapnic respiratory failure: Code(s): J96.92 - Respiratory failure, unspecified with hypercapnia Status: Acute Assessment and Plan: 56-year-old man with COPD, severe emphysema with chronic hypoxemic/ hypercapnic respiratory failure with a previous history of frequent COPD exacerbation and also acute on chronic hypercapnic respiratory failure presented with increasing shortness of breath on exertion. Chest imaging studies have shown new small pleural effusions bilaterally and possible lung congestion especially in the upper lobes. The patient has been treated with BiPAP support and antibiotics as well as short-acting bronchodilators for COPD exacerbation. Patient received IV steroids just for 1 day. Currently he is back at baseline. No previous pulmonary function testing is available. On chest CT he has got severe bullous emphysema bilaterally with hyperinflated lungs, flat diaphragms. Plan: patient with end-stage COPD related to severe bullous emphysema with previous history of a secondary spontaneous pneumothorax status post pleurodesis, chronic hypoxemic hypercapnic respiratory failure on supplemental oxygen 18/05, history of alpha-1 antitrypsin deficiency on no replacement therapy. The patient was treated with BiPAP support antibiotics and bronchodilators for COPD exacerbation. His respiratory status is improved and patient is back at his baseline. The patient will benefit from home ventilatory support as he has chronic hypercapnia, and frequent COPD exacerbations requiring hospitalizations. patient can be discharged home today. He will continue with his maintenance bronchodilators supplemental oxygen and also follow up with his showcase trimmer at [facility]. (2) COPD exacerbation: Code(s): J44.1 - Chronic obstructive pulmonary disease with (acute) exacerbation Status: Acute (3) Chronic respiratory failure with hypoxia: Code(s): J96.11 - Chronic respiratory failure with hypoxia Status: Acute (4) COPD with emphysema: Code(s): J43.9 - Emphysema, unspecified Status: Acute (5) Bruzy-4-mhyfjbodfcn deficiency: Code(s): E88.01 - Xkkkc-7-whsgzfjmoul deficiency Status: Acute Subjective Date/time seen: 07/03/22 09:29 Interval history: patient has no new respiratory symptoms. Used BiPAP support last night. Currently on supplemental oxygen. Shortness of breath about baseline. Review of Systems Review of Systems: All systems reviewed & are unremarkable except as noted in HPI and below Exam Narrative: GENERAL APPEARANCE: Well developed, well nourished, alert and cooperative, and appears to be in mild to moderate respiratory distress while on supplemental oxygen SKIN: Inspection of the skin reveals no rashes, ulcerations or petechiae. HEENT: Sclerae anicteric and conjunctivae pink and moist. Extraocular movements were intact and pupils were equal, round, and reactive to light. The oral mucosa, hard and soft palate, tongue and posterior pharynx were normal. NECK: Supple. There was no thyroid enlargement, and no tenderness, or masses were felt. CHEST: Normal AP diameter and normal contour without any kyphoscoliosis. LUNGS: Auscultation of the lungs revealed distant breath sounds bilaterally no wheezing CARDIAC: There was a regular rate and rhythm without any murmurs, gallops, rubs. ABDOMEN: Soft and nontender with normal bowel sounds. There was no organomegaly. LYMPH NODES: No lymphadenopathy was appreciated in the neck. EXTREMITIES: No cyanosis, clubbing or edema. NEUROLOGIC: Alert and oriented x 3. Normal affect. Objective Data Vital Signs Vital Signs: Vital Signs - 24 hr 07/02/22 13:25 07/02/22 13:39 07/02/22 14:00 Temperature 36.6 C Pulse Rate 92 90 108 H Respiratory Rate 16 16 20 Blood Pressure 103/61 Pulse Oximetry 98 Oxygen Delivery Oxygen Flow Rate Fraction of Inspired Oxygen
--- NOTE | 2022-07-03 11:01 | PC.NURSE ---
On 07/03/22, the student, Linda Sandoval, provided care and completed [facility] documentation on this patient. I have reviewed the student's documentation and agree with the findings.
--- NOTE | 2022-07-03 13:37 | PCRCNOTE ---
HOME TRILOGY UNIT IS ORDERED AND APPROVED WITH [facility]. OFFICE # [phone]. ORDER SCANNED INTO EMR. [facility] WILL CALL AND SET UP UNIT IN HOME AND INSTRUCT PT ON USE/EQUIPMENT THIS EARLY AFTERNOON/EVENING ONCE D/C TO HOME.
--- NOTE | 2022-07-03 16:56 | PM.DS ---
DS: Admitting Diagnosis Discharge Date 07/03/22 Admitting Diagnosis (1) Abnormal chest x-ray: ?Code(s): R93.89 - Abnormal findings on diagnostic imaging of other specified body structures ?Status:?Acute ? ? (2) Chronic respiratory failure with hypoxia: ?Code(s): J96.11 - Chronic respiratory failure with hypoxia ?Status:?Acute ? ? (3) COPD exacerbation: ?Code(s): J44.1 - Chronic obstructive pulmonary disease with (acute) exacerbation ? ? (4) COPD with emphysema: ?Code(s): J43.9 - Emphysema, unspecified ?Status:?Acute (5) Chest pain: ?Code(s): R07.9 - Chest pain, unspecified ?Status:?Acute ? ? (6) Joint pain: ?Code(s): M25.50 - Pain in unspecified joint ?Status:?Acute (7) Malnourished: ?Code(s): E46 - Unspecified protein-calorie malnutrition ?Status:?Acute DS: Discharge Diagnosis Discharge Diagnosis (1) Abnormal chest x-ray: Code(s): R93.89 - Abnormal findings on diagnostic imaging of other specified body structures Status: Acute (2) COPD with emphysema: Code(s): J43.9 - Emphysema, unspecified Status: Acute (3) Chest pain: Code(s): R07.9 - Chest pain, unspecified Status: Acute (4) Joint pain: Code(s): M25.50 - Pain in unspecified joint Status: Acute (5) Hypercapnic respiratory failure: Code(s): J96.92 - Respiratory failure, unspecified with hypercapnia Status: Acute (6) Muscular deconditioning: Code(s): R29.898 - Other symptoms and signs involving the musculoskeletal system Status: Acute (7) Xgvfi-3-ezipmcsmngt deficiency: Code(s): E88.01 - Uwjkg-0-gxuugljmjbo deficiency Status: Acute (8) Wasting syndrome: Code(s): R64 - Cachexia Status: Acute (9) Severe protein-calorie malnutrition: Code(s): E43 - Unspecified severe protein-calorie malnutrition Status: Acute DS: Summary Hospital Course Reason for hospitalization: Chief Complaint: Shortness of breath. Narrative: This is a 56-year-old male with chronic respiratory failure on home oxygen, chronic obstructive pulmonary disease, and history of pneumothorax status post mechanical pleurodesis who presented to the emergency department via EMS from home for evaluation of shortness of breath. He has chronic dyspnea on exertion however it has been much worse over the past 3 weeks. He has been using his nebulizers 3 times a day and his rescue inhaler with lesser and lesser benefit. In fact he has been using his oxygen at 4 L for the last several weeks consistently which she typically only uses with exertion. He also reports heaviness in his chest which he attributes to difficulties taking in a deep breath. His appetite has been poor and he has lost 10 lb in the last month or so, he has had some loose stools, and he has had a cough though that has not been productive. He is weak and reports pending 19 hours a day in bed the last several weeks due to feeling poorly. On arrival to the emergency department his vital signs were stable and he was afebrile. Labs were reviewed and they are reassuring. Chest x-ray showed severe emphysema and right mid and upper lung opacities which may represent infection and he is being admitted in this setting. At the time my evaluation he has no specific complaints. He denies sick contacts, dysphagia, and concerns for aspiration. Hospital Course: 06/28/22 Chest x-ray shows right mid and upper lung opacities which may represent infection. He is afebrile and has normal white blood cell count thus I am not sure he has an active infection however given his increasing shortness of breath and worsening cough we will continue with antibiotics.? Attempt sputum for culture. Check CRP and procalcitonin. He turned his oxygen up to 4 L a couple of weeks ago as it made his breathing better. At the time my evaluation he is 99% on 2 L. He is not moving much air whatsoever on my exam. Cont
[2022-07-03 17:10] LABS: Legionella pneumophila Ag Ur Not Detected (Not Detected)
== END 2022-07-03 17:25 | disposition home health service (06) | DRG 140 ==
LOC: ANHED 21:08 → ANH3MED 22:20
PROVIDERS: Emergency Medicine; Physician Assistant; Student in an Organized Health Care Education/Training Program; Admitting Provider Internal Medicine; Emergency Provider Nurse Practitioner Family; PCP Nurse Practitioner Adult Health; Visit Provider Hospitalist
DX: J43.2 Centrilobular emphysema (principal); E43 Unspecified severe protein-calorie malnutrition; R64 Cachexia; J96.11 Chronic respiratory failure with hypoxia; J96.12 Chronic respiratory failure with hypercapnia; Z68.1 Body mass index [BMI] 19.9 or less, adult; Z99.81 Dependence on supplemental oxygen; E88.01 Alpha-1-antitrypsin deficiency; R93.89 Abnormal findings on diagnostic imaging of other specified body structures; J45.909 Unspecified asthma, uncomplicated; M25.50 Pain in unspecified joint; R29.898 Other symptoms and signs involving the musculoskeletal system; F41.8 Other specified anxiety disorders; F98.8 Other specified behavioral and emotional disorders with onset usually occurring in childhood and adolescence; Z79.51 Long term (current) use of inhaled steroids; Z79.899 Other long term (current) drug therapy; Z87.891 Personal history of nicotine dependence
CPT/HCPCS: 36415; 36600; 71045; 80048; 80053; 82375; 82805; 83050; 83735; 83880; 84145; 84550; 85025; 85027; 85380; 85652; 86140; 87040; 87070; 87205; 87449; 87899; 93005; 93306; 94002; 94003; 94640; 96365; 96372; 96374; 96375; 96376; 97110; 97161; 97165; 97530; 99285; A9270; G0378; J0456; J0696; J1650; J1940; J2920; J2930

== ENCOUNTER 2024-10-06 01:16 | Emergency (ER) | payer MEDICARE, SELFPAY ==
[2024-10-06 01:23] VITALS: BP 127/77; PULSE 85; RESP 15; TEMP 36.7; O2SAT 100
--- NOTE | 2024-10-06 01:25 | ED.EYEPROB ---
HPI - Eye Problem General Chief complaint: Eye Problems Stated complaint: Plastic piece in eye Time Seen by Provider: 10/06/24 01:21 History of Present Illness HPI Narrative: 59-year-old male with history of alpha-1 antitrypsin deficiency, COPD, lung transplant 1 year ago presents to the emergency department for left eye irritation. Patient states earlier today he was working on his son's bathroom flying when he was hammering a piece of the plastic plumbing and believes a piece went into his left eye/upper eyelid. States the areas been irritated since. Reports he was trying to go to bed sleepy felt irritation in his upper eyelid which caused to come to the ED. He reports associated clear tearing. Denies vision changes. He does not were contacts. Related Data Home Medications ?Medication ?Instructions ?Recorded ?Confirmed ?Last Taken ?Type fluticasone fur. 200 mcg-umeclid 1 inh inhalation DAILY 12/29/21 06/28/22 06/28/22 09:00 History 62.5 mcg-vilant 25 mcg inhalat.powder (Trelegy Ellipta) Allergies Allergy/AdvReac Type Severity Reaction Status Date / Time No Known Allergies Allergy Verified 06/28/22 18:05 Review of Systems Review of Systems: All systems reviewed & are unremarkable except as noted in HPI and below PMFSH Past Medical History Medical History History of pneumothorax Chronic respiratory failure with hypoxia Chronic obstructive pulmonary disease Attention deficit disorder Depression with anxiety Chronic respiratory failure Asthma Surgical History Surgical History History of thoracotomy Mechanical pleurodesis. History of tonsillectomy Family History Family History Sibling Depression Family history of mental disorder Family history of chronic obstructive pulmonary disease Family history of heart disease in male family member before age 55 Mother Family history of irritable bowel syndrome Hypertension Cerebrovascular accident Family history of heart disease in male family member before age 55 Father Acute myocardial infarction Family history of heart disease in male family member before age 55 Mother Hypertension Cerebrovascular accident Father Heart disease Heart attack Pulmonary disease Other No pertinent family history Social History Social History (Reviewed 10/06/24 @ 01:27 by BRAD Paula Social History: The patient lives with his son in [place]. He is a retired quantitative software engineer. He smoked a pack of cigarettes a day for 35 years and quit in December 2021. He denies alcohol and illicit substance abuse. Surrogate medical decision maker: Luis Munoz, felisha. Code status: Full code. Living arrangements: with family Spiritual care concerns: No Exam Narrative: GENERAL: Well-appearing, well-nourished, and in no acute distress. HEAD: Normocephalic, atraumatic. EYES: PERRLA and EOMI. Left upper lid with inflammation to the lid margin. Clear tearing to the left eye. No foreign body visualized. Fluorescein staining shows small irregular area of increased uptake at the 8 o'clock position. No foreign bodies or abrasions to the inner lids. Negative Pranav sign. No keratotic lesions. Left eye pressure measures 17mmhg ENT: Nares clear, no rhinorrhea or epistaxis. Mucous membranes moist. NECK: Supple. CHEST: Clear to auscultation. No respiratory distress. HEART: Regular rate and rhythm. No murmur heard. Normal peripheral pulses. EXTREMITIES: Normal range of motion. No edema. SKIN: Warm, dry, no rash. NEURO: No focal deficits. Alert and oriented x3 Course Vital Signs Vital signs: Vital Signs Temperature 98.1 F 10/06/24 01:23 Pulse Rate 85 10/06/24 01:23 Respiratory Rate 15 10/06/24 01:23 Blood Pressure 127/77 10/06/24 01:23 Pulse Oximetry 100 10/06/24 01:23 Oxygen Delivery Room Air 10/06/24 01:23 Temperature 98.1 F 10/06/24 01:23 Pulse Rate 83 10/06/24 02:05 Respiratory Rate 15 10/06/24 02:05 Blood Pressure 124/76 10/06/24 02:05 Pulse Oximetry 100 10/06/24 02:05 Oxygen Delivery Room Air 10/06/24 01:23 MDM - Eye Problem MDM Narrative Medical decision making narrative: 59-year-old male presents to the emergency department for left eye discomfort after hammering a piece of plastic Strong today. Patient concerned that he had a piece of plastic hit his left eye. Vitals are stable. Exam is significant for inflammation to the left upper lid with increased irregular fluorescein uptake around the 8 o'clock position of the cornea consistent with a corneal abrasion. In depth examination shows no evidence of foreign body. Negative Pranav signs. Left eye pressure 17 mmHg. Visual acuity is 2025 in the left eye. Patient updated on workup and treatment plan. Will start erythromycin ointment. He is established with an tooth cutter contact wheel for prior cataract surgery to the right eye. Advised follow-up closely discussed strict ED return precautions. He is agreeable with the plan verbalized understanding. Discharged in stable condition. Discharge Plan Discharge Clinical Impression: Corneal abrasion Qualifiers: Encounter type: initial encounter Laterality: left Qualified Code(s): S05.02XA - Injury of conjunctiva and corneal abrasion without foreign body, left eye, initial encounter Patient Disposition: Home, Self-Care Condition: Stable Instructions: Antibiotic Form, Corneal Abrasion (DC) Additional Instructions: Your evaluated in the emergency department for discomfort to her left eye. Your found have a corneal abrasion as discussed. Please use the erythromycin ointment as directed follow up very closely with her tooth cutter contact wheel. Use warm compresses. Return to the emergency department if you develop a fever, worsening eye pain, vision changes or other concerning symptoms. Patient Language: Upper Sorbian Prescriptions: New erythromycin 5 mg/gram (0.5 %) ointment 0.5 inch EACH EYE QID 5 Days Qty: 3.5 0RF No Action albuterol sulfate 90 mcg/actuation HFA aerosol inhaler 2 puff INHALATION QID PRN (Reason: shortness of breath or wheezing) Qty: 18 0RF Trelegy Ellipta 200-62.5-25 mcg Blister With Device 1 inh INHALATION DAILY Follow-up/Referrals: Kassandra,Otto Barahona MD [Primary Care Provider] -
[2024-10-06 02:05] VITALS: BP 124/76; PULSE 83; RESP 15; O2SAT 100
== END 2024-10-06 02:07 | disposition home or self-care (01) ==
LOC: ANHED 02:00
PROVIDERS: Emergency Provider Physician Assistant; PCP Family Medicine
DX: S05.02XA Injury of conjunctiva and corneal abrasion without foreign body, left eye, initial encounter (principal); J44.9 Chronic obstructive pulmonary disease, unspecified; J96.11 Chronic respiratory failure with hypoxia; E88.01 Alpha-1-antitrypsin deficiency; Z94.2 Lung transplant status; Z87.891 Personal history of nicotine dependence; W20.8XXA Other cause of strike by thrown, projected or falling object, initial encounter
CPT/HCPCS: 99283